=== PATIENT | female | born 1960 | race Caucasian/White ===

== ENCOUNTER 2017-10-06 08:38 | Inpatient (IN) ==
[2017-10-06] MEDS ORDERED: 0.9 % Sodium Chloride 1,000 ML ONE (09:05)
[2017-10-06] MEDS ORDERED: 0.9 % Sodium Chloride 1,000 ML IVC ONE ×7 (09:08→18:59)
--- NOTE | 2017-10-06 09:12 | Emergency Department Note ---
Disposition Clinical Impression: Sinus tachycardia, Dehydration, Weakness Lung cancer, primary, with metastasis from lung to other site Qualifiers: Laterality: unspecified laterality Qualified Code(s): C34.90 - Malignant neoplasm of unspecified part of unspecified bronchus or lung Urinary tract infection Qualifiers: Urinary tract infection type: acute cystitis Hematuria presence: without hematuria Qualified Code(s): N30.00 - Acute cystitis without hematuria Disposition: Admitted As Inpatient Condition: Fair Referrals: Rik Cisneros DO [Primary Care Provider] - Forms: ED Satisfaction Letter Time of Disposition: 11:44 General Adult HPI - General Chief complaint: ED Arrhythmia/Palpitations Stated complaint: TACHYCARDIA Time Seen by Provider: 10/06/17 08:56 Source: patient, family Limitations: no limitations Nursing Notes Reviewed: Yes Vital Signs Reviewed: Yes - History of Present Illness HPI Narrative: 57-year-old female history of lung cancer metastasis to the brain presents to the ED for dizziness and dehydration. Patients oncologist is Dr. Soliz, radiation oncologist Dr. Sands. Today she received her 5th radiation treatment of 10 afterwards felt week and reports episode of dizziness room spinning that lasted a minute, symptoms are resolved. He was also concerned because her heart rate was significantly elevated 150s. She denies known history of arrhythmia. She has not been eating as much over the past few days. She denies any fevers or chills. Denies any cough, chest pain, shortness of breath. Denies any nausea vomiting or abdominal pain. States she just feels weak and dry. She denies any sick contacts. Denies any fall. Denies any lightheadedness or syncope. Pain Scale: 0 - Related Data Home Medications Medication Instructions Recorded Confirmed predniSONE [Prednisone] 5 mg PO HS 07/25/17 10/06/17 predniSONE [Prednisone] 10 mg PO QAM 07/25/17 10/06/17 Calcium Carbonate/Vitamin D3 1 each PO BID 08/19/17 10/06/17 [Calcium 600 + Vit D Tablet] Previous Rx's Medication Instructions Recorded Furosemide [Lasix] 40 mg PO DAILY PRN #30 tablet 07/21/15 Levothyroxine [Synthroid] 100 mcg PO DAILY #90 tablet 03/21/17 Potassium Chloride [K-Tab ER] 40 meq PO BID #180 tablet.er 03/21/17 hydroCHLOROthiazide 25 mg PO DAILY #90 tablet 03/21/17 [Hydrochlorothiazide] Valacyclovir HCl [Valtrex] 1,000 mg PO DAILY #30 tab 07/25/17 Allergies Allergy/AdvReac Type Severity Reaction Status Date / Time ferrous sulfate Allergy Unknown Unknown Verified 10/06/17 08:56 Sulfa (Sulfonamide Allergy Unknown Unknown Verified 10/06/17 08:56 Antibiotics) All systems ED: reviewed and negative except as stated. Review of Systems: As Per HPI Constitutional: Reports: weakness. Denies: fever, chills ENT ED: Denies: congestion, dysphagia Cardiovascular: Denies: chest pain, dyspnea on exertion, syncope Respiratory: Denies: cough, dyspnea Gastrointestinal: Denies: abdominal pain, nausea, vomiting Genitourinary: Denies: urgency, dysuria Musculoskeletal: Denies: back pain, neck pain Integumentary: Denies: rash, abrasion Neurological: Reports: weakness. Denies: headache Psychiatric: Denies: anxiety, depression Endocrine: Reports: fatigue Past Medical History - Past Medical History Attestation: Yes The following information was validated with the patient. Source: patient Medical history: Reports: cancer, thyroid disease, other Psychiatric history: Reports: no psych history - Social History Smoking Status: Never smoker Smokeless Tobacco Status: No Alcohol use: Reports: none Drug use: Reports: none Physical Exam - General Limitations: no limitations General appearance: alert, in no apparent distress - Head Head exam: atraumatic, normocephalic, other (hair loss/bald) - Eye Eye exam: Present: normal appearance, PERRL, EOMI. Absent: scleral icterus - ENT ENT exam: normal exam, normal oropharynx, mucous membranes dry - Neck Neck exam: Present: normal inspection, full ROM, trachea midline. Absent: tenderness - Chest Chest inspection: Present: normal inspection, symmetric chest wall rise, other ( port to right anterior chest). Absent: tenderness - Respiratory Respiratory exam: Present: normal lung sounds bilaterally. Absent: respiratory distress, wheezes - Cardiovascular Cardiovascular exam: Present: normal rhythm, tachycardia, normal heart sounds - Abdominal Exam Abdominal exam: Present: soft, Non-Tender, normal bowel sounds. Absent: tenderness, distention, guarding, rebound, rigidity - Extremities Exam Extremities exam: Present: normal inspection, full ROM, normal capillary refill. Absent: tenderness, pedal edema, calf tenderness - Back Exam Back exam: Present: normal inspection, full ROM. Absent: tenderness - Neurological Exam Neurological exam: Present: alert, oriented X3, CN II-XII intact - Expanded Neurological Exam Patient oriented to: Present: person, place, time Speech: Present: fluid speech Cranial nerves: EOM function (II, III, IV, ): Normal, facial sensation (V): Normal, facial palsy (VII): Normal, spinal accessory function (XI): Normal, tongue deviation (XII): Normal Motor strength - LUE: 5/5 Motor strength - RUE: 5/5 Motor strength - LLE: 5/5 Motor strength - RLE: 5/5 Upper motor neuron exam: laina neglect: Absent bilaterally Sensory exam upper extremity: light touch: Normal Sensory exam lower extremity: light touch: Normal - Psychiatric Psychiatric exam: Present: normal affect, normal mood - Skin Skin exam: Present: warm, dry, intact, pallor. Absent: rash, diaphoresis Course Course Narrative: 57-year-old female rain metastasis presents for weakness. On exam she appears mildly uncomfortable and very dry. She is afebrile. Sinus tachycardia 157. She denies any other complaints at this time. Neurologic exam is normal without any focal neural deficits. She denies any current illness. EKG performed showed sinus tachycardia ischemic changes. Will get basic labs in fluid hydrated her for possible dehydration. Also get a chest x-ray and urinalysis. Patient has a history of hypothyroidism will check or TSH. Patients in agreement with this plan. Disposition pending reassessment - Reevaluation(s) Reevaluation #1: Heart rate is improving with IV fluids. She has a large leukocytosis 31. States she is been on chronic steroids over the past 4 years currently reduced the dose. Her WBC last week was 6.7. Chest x-ray does not reveal signs for infection, old opacity appears chronic likely lung mass. Awaiting urinalysis. Review of her labs indicate likely dehydration. Her lactate is 2.0. Her TSH is low 0.2 and appears persistently low. She continues to be sinus on monitor. She meets 2 of 4 SIRS criteria, blood cultures obtained. She is not hypotensive and at this time does not require aggressive fluid resuscitation of 30 mL/kg. She has received a total of 2L normal saline with improvement of symptoms, will place on empiric antibiotics Zosyn and Vancomycin. Time: 09:58 Reevaluation #2: Urinalysis appears consistent with infection. After some more desiccation she does report some dysuria. Concern for urinary tract infection. She would be admitted for IV antibiotics and fluids. - Consultations Consultation #1: Spoke with on-call hospitalist sury Bahena to admit for weakness, dehydration , SIRS. No further orders at this time. Recheck of her blood pressure 113/67. She did have one hypotensive reading but this was after urination. Vital Signs Temperature 98.0 F 10/06/17 08:48 Pulse Rate 157 10/06/17 08:48 Respiratory Rate 18 10/06/17 08:48 Blood Pressure 129/87 10/06/17 08:48 O2 Sat by Pulse Oximetry 98 10/06/17 08:48 Temperature 100.0 F H 10/06/17 11:42 Pulse Rate 134 10/06/17 11:42 Respiratory Rate 16 10/06/17 11:42 Blood Pressure 109/69 10/06/17 11:42 O2 Sat by Pulse Oximetry 98 10/06/17 11:42 Oxygen Delivery Oxygen Delivery Room Air Medical Decision Making - MDM Narrative Medical decision making narrative: Patient was discussed with my attending physician who agrees with ED management and final disposition. They independently evaluated the patient. Please refer to their attestation to this encounter for additional information. This note was generated by [employer] voice recognition software and as a result grammatical or spelling errors may occur using this program. - Medical Records Medical records reviewed: Yes I reviewed the patient's medical records. - Lab Data Lab results reviewed: Yes I reviewed the patient's lab results. Result diagrams: 10/06/17 09:07 10/06/17 09:07 Lab Results 10/06/17 10/06/17 10/06/17 Range/Units 09:07 09:07 09:07 WBC 31.0 H* (4.3-11.1) K/mcL RBC 4.69 (3.82-4.97) M/mcL Hgb 14.5 (11.5-15.4) g/dL Hct 43.3 (35.3-44.9) % MCV 92.3 (83.0-100.0) fL MCH 30.9 (28.0-33.3) pg MCHC 33.5 (31.6-35.5) g/dL RDW 18.4 H (11.5-14.5) % Plt Count 165 (140-400) K/mcL MPV 10.5 (9.4-12.4) fL Seg Neutrophils % 96.0 % Lymphocytes % 4.0 % Neutrophils # 29.8 H (1.6-8.9) K/mcL Lymphocytes # 1.2 (0.6-4.6) K/mcL Platelet Estimate Normal (Normal) Large Platelets Present A (Not Present) Sodium 132 L (136-145) mEq/L Potassium 3.4 L (3.5-4.5) mEq/L Chloride 93 L (98-109) mEq/L Carbon Dioxide 26 (19-29) mEq/L BUN 12 (7-20) mg/dL Creatinine 0.69 (0.57-1.11) mg/dL Est GFR ( Amer) > 60 (> 60) Est GFR (Non-Af Amer) > 60 (> 60) BUN/Creatinine Ratio 17 (6-26) Glucose 135 H (70-99) mg/dL Calculated Osmolality 276 L (280-300) Lactic Acid 2.0 (0.5-2.2) mmol/L Calcium 8.5 L (8.6-10.8) mg/dL Magnesium 1.5 L (1.6-2.6) mg/dL Troponin I (0-0.03) ng/mL TSH 0.232 L (0.350-4.840) mcIU/mL Urine Color (Yellow) Urine Clarity (Clear) Urine pH (5.0-8.0) pH Units Ur Specific [place] (1.010-1.025) Urine Protein (Neg-Trace) mg/dL Urine Glucose (UA) (Normal) mg/dL Urine Ketones (Negative) mg/dL Urine Blood (Negative) Urine Nitrite (Negative) Urine Bilirubin (Negative) Urine Urobilinogen (Normal) mg/dL Ur Leukocyte Esterase (Negative) Urine Microscopic RBC (0-3) per hpf Urine Microscopic WBC (0-3) per hpf Ur Squamous Epith Cells (None-Few) per lpf Urine Bacteria (None-Few) per hpf Hyaline Casts (None-Few) per lpf Ur Culture Indicated? (NO) 10/06/17 10/06/17 Range/Units 09:07 11:10 WBC (4.3-11.1) K/mcL RBC (3.82-4.97) M/mcL Hgb (11.5-15.4) g/dL Hct (35.3-44.9) % MCV (83.0-100.0) fL MCH (28.0-33.3) pg MCHC (31.6-35.5) g/dL RDW (11.5-14.5) % Plt Count (140-400) K/mcL MPV (9.4-12.4) fL Seg Neutrophils % % Lymphocytes % % Neutrophils # (1.6-8.9) K/mcL Lymphocytes # (0.6-4.6) K/mcL Platelet Estimate (Normal) Large Platelets (Not Present) Sodium (136-145) mEq/L Potassium (3.5-4.5) mEq/L Chloride (98-109) mEq/L Carbon Dioxide (19-29) mEq/L BUN (7-20) mg/dL Creatinine (0.57-1.11) mg/dL Est GFR ( Amer) (> 60) Est GFR (Non-Af Amer) (> 60) BUN/Creatinine Ratio (6-26) Glucose (70-99) mg/dL Calculated Osmolality (280-300) Lactic Acid (0.5-2.2) mmol/L Calcium (8.6-10.8) mg/dL Magnesium (1.6-2.6) mg/dL Troponin I 0.02 (0-0.03) ng/mL TSH (0.350-4.840) mcIU/mL Urine Color [place] A (Yellow) Urine Clarity Cloudy A (Clear) Urine pH 7.0 (5.0-8.0) pH Units Ur Specific [place] 1.016 (1.010-1.025) Urine Protein 100 H (Neg-Trace) mg/dL Urine Glucose (UA) Normal (Normal) mg/dL Urine Ketones Trace H (Negative) mg/dL Urine Blood Negative (Negative) Urine Nitrite Positive A (Negative) Urine Bilirubin Moderate H (Negative) Urine Urobilinogen Normal (Normal) mg/dL Ur Leukocyte Esterase Small H (Negative) Urine Microscopic RBC 0-3 (0-3) per hpf Urine Microscopic WBC 15-30 H (0-3) per hpf Ur Squamous Epith Cells Many H (None-Few) per lpf Urine Bacteria Many H (None-Few) per hpf Hyaline Casts None Seen (None-Few) per lpf Ur Culture Indicated? NO (NO) - Radiology Data Radiology results reviewed: Yes I reviewed the patient's radiology results. Chest X-Ray 10/06/17 09:08 IMPRESSION: No acute cardiopulmonary process. Retrocardiac opacity, consistent with known left lower lobe metastases, is unchanged. D/ / 10/06/2017 09:38:53 Mor Rojo MD / kedar Interpreting Provider: Mor Rojo MD - EKG Data EKG #1 EKG attestation: Yes I reviewed and interpreted this EKG. EKG results narrative: EKG performed 0850 sinus tachycardia 157 bpm short RI interval 115, there are some minimal ST depression is V3 MP4 possibly due to rate, no ST elevation, no T wave inversion. Other intervals are within normal limits. Compared to old EKG performed 11/12/2015 shows similar findings sinus tachycardia 1 12 bpm. Denies any chest pain. Attestation Statement - Attestation Attestation: I examined this patient and my medical decision-making was reviewed with the Resident Physician. I agree with the documented findings, disposition and treatment plan as described except to the extent set forth below. Patient to the ED from the cancer center with dehydration. She presented today for radiation treatments. Patient has metastatic lung cancer. She was tachycardic in the 150s so she was sent to the ED for evaluation. Exam shows her tachycardic. Dry cracked lips. Dry mucous membranes. Plan. The patient appears severely dehydrated. EKG sinus tach. IV fluid bolus. Will admit. Patient has a leukocytosis of 31,000. Unclear the source, but she has never been this high. Blood cultures pending. We will give her a dose of IV antibiotic prior to admission. Patient with UTI. Now febrile. Patient meets sepsis criteria. Tylenol ordered. She received 3 L bolus and vancomycin and Zosyn. She is admitted to the hospitalist. . 40 minutes of critical care exclusive of separately billable procedures.
[2017-10-06 09:18] LABS: Hemoglobin 14.5 g/dL (11.5-15.4)
[2017-10-06 09:20] LABS: Hematocrit 43.3 % (35.3-44.9); Mean Corpuscular HGB Conc 33.5 g/dL (31.6-35.5); Mean Corpuscular Hemoglobin 30.9 pg (28.0-33.3); Mean Corpuscular Volume 92.3 fL (83.0-100.0); Mean Platelet Volume 10.5 fL (9.4-12.4); Platelet Count 165 K/mcL (140-400); Red Blood Count 4.69 M/mcL (3.82-4.97); Red Cell Distribution Width 18.4 % (11.5-14.5)
[2017-10-06 09:29] LABS: BUN/Creatinine Ratio 17 (6-26); Blood Urea Nitrogen 12 mg/dL (7-20); Calcium 8.5 mg/dL (8.6-10.8); Carbon Dioxide 26 mEq/L (19-29); Chloride 93 mEq/L (98-109); Glucose 135 mg/dL (70-99); Osmolality,Calculated 276 (280-300); Potassium 3.4 mEq/L (3.5-4.5); Sodium 132 mEq/L (136-145); eGFR For African Americans > 60 (> 60); eGFR For Non-African Americans > 60 (> 60)
[2017-10-06 09:48] LABS: Large Platelets Present (Not Present); Lymphocytes # 1.2 K/mcL (0.6-4.6); Neutrophils # 29.8 K/mcL (1.6-8.9); Platelet Estimate Normal (Normal)
[2017-10-06 09:51] LABS: Thyroid Stimulating Hormone 0.232 mcIU/mL (0.350-4.840)
[2017-10-06 10:02] LABS: Magnesium 1.5 mg/dL (1.6-2.6)
[2017-10-06] MEDS ORDERED: Piperacillin/Tazobactam 3.375 GM in Water for inj. (sterile) 20 ML IVP ONE (10:46)
[2017-10-06] MEDS ORDERED: Vancomycin 1,000 MG in D5% in Water 250 ML IVPB ONE (11:15)
[2017-10-06 11:29] LABS: Bilirubin,Urine Moderate (Negative); Blood,Urine Negative (Negative); Clarity,Urine Cloudy (Clear); Color,Urine Orange (Yellow); Glucose,Urine (UA) Normal (Normal); Ketones,Urine Trace mg/dL (Negative); Leukocyte Esterase,Urine Small (Negative); Nitrite,Urine Positive (Negative); Protein,Urine 100 mg/dL (Neg-Trace); Specific Gravity,Urine 1.016 (1.010-1.025); Urobilinogen,Urine Normal (Normal)
[2017-10-06 11:32] LABS: Bacteria,Urine Many per hpf (None-Few); Hyaline Casts,Urine None Seen per lpf (None-Few); RBC,Urine 0-3 per hpf (0-3); Squamous Epithelial Cell,Urine Many per lpf (None-Few); WBC,Urine 15-30 per hpf (0-3)
[2017-10-06] MEDS ORDERED: Naloxone 0.4 MG/ML INJ IVP PRN ×2 (12:48→18:59)
[2017-10-06] MEDS ORDERED: Ondansetron 4 MG/2 ML VIAL IVP PRN ×2 (12:48→18:59)
[2017-10-06] MEDS ORDERED: Acetaminophen 325 MG TABLET PO PRN ×2 (12:48→18:59)
[2017-10-06] MEDS ORDERED: 0.9 % Sodium Chloride 1,000 ML IVC SCH ×3 (13:00→16:15)
--- NOTE | 2017-10-06 13:00 | Internal Med History&Physical ---
Date of Encounter: 10/06/17 Time of Encounter: 13:00 Assessment and Plan (1) Sepsis Current visit: Yes Status: Acute Patient presents tachycardic with a heart rate in the 150s white count is 31,000 -urinalysis is positive for UTI. She was given 3 L of fluid in the ER as well as blood cultures were obtained and urine culture sent. We will continue with IV fluids Continuous cardiac monitoring She was initiated empirically on vancomycin and Zosyn which we will continue- pending culture and sensitivity Monitor intake and output Qualifiers: Sepsis type: sepsis due to unspecified organism Qualified Code(s): A41.9 - Sepsis, unspecified organism (2) Urinary tract infection Current visit: Yes Status: Acute Patient presented with symptoms of tachycardia and fatigue the elevated white count and urinalysis revealed UTI. Urine culture and blood cultures have been sent. 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 She is being followed by Dr. Soliz oncology and Dr. Sands oncology radiologist. She is scheduled to have radiation treatment tomorrow. I did speak with radiation oncologist Dr. Sands who will see the patient-once stable administer radiation treatment Continue with prednisone Qualifiers: Laterality: unspecified laterality Qualified Code(s): C34.90 - Malignant neoplasm of unspecified part of unspecified bronchus or lung (4) DVT prophylaxis Current visit: Yes Status: Acute [facility] Internal Medicine - H&P: HPI Chief complaint: weakness Admitted From: Emergency Dept Plans for Post Hospital Care: Home History of present illness: Ms. 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 According to the patient since Friday she has been feeling very weak and nauseated. She has not been able to eat over the past few days. She denies any fevers chills abdominal pain urinary symptoms chest pain or shortness of breath. She is a patient of Dr. Soliz oncology as well as radiation oncologist Dr. Sands. Today she presented to receive her fifth radiation treatment. Dr. Sands became concerned because her heart rate was significantly elevated at 150s and the patient appeared to be symptomatic complaining of lightheadedness and dizziness. She was sent to the ER for evaluation. Upon presentation patient was tachycardic with a heart rate 150s as well as hypotensive. Her white count was elevated at 31 chest x-ray was negative lactate was 29 was 1.5 TSH was 0.232 urinalysis was positive for UTI. She was given 3 L of fluid blood cultures were obtained and she was initiated on vancomycin and Zosyn. She has been admitted for further workup and evaluation. Presently she denies any chest pain or shortness of breath she continues to be slightly tachycardic blood pressure stable at this time. I did review this case with Dr. Harris who agrees with plan. Past Med Surg Social Fam HX - Past Medical History Medical history: cancer, thyroid disease, other Psychiatric history: no psych history - Social History Smoking Status: Never smoker Smokeless Tobacco Status: No Alcohol use: none Drug use: none Internal Medicine - H&P: Meds Furosemide [Lasix] 40 mg PO DAILY PRN #30 tablet 07/21/15 [Rx] Levothyroxine [Synthroid] 100 mcg PO DAILY #90 tablet 03/21/17 [Rx] Potassium Chloride [K-Tab ER] 40 meq PO BID #180 tablet.er 03/21/17 [Rx] hydroCHLOROthiazide [Hydrochlorothiazide] 25 mg PO DAILY #90 tablet 03/21/17 [Rx ] Valacyclovir HCl [Valtrex] 1,000 mg PO DAILY #30 tab 07/25/17 [Rx] predniSONE [Prednisone] 5 mg PO HS 07/25/17 [History] predniSONE [Prednisone] 10 mg PO QAM 07/25/17 [History] Calcium Carbonate/Vitamin D3 [Calcium 600 + Vit D Tablet] 1 each PO BID [History] 3 Allergy/AdvReac Type Severity Reaction Status Date / Time ferrous sulfate Allergy Unknown Unknown Verified 10/06/17 08:56 Sulfa (Sulfonamide Allergy Unknown Unknown Verified 10/06/17 08:56 Antibiotics) All Systems PM: A 10-system review of systems was performed and is negative for pertinent findings except as documented above in the HPI. - Constitutional Constitutional: anorexia, fatigue, no chills, no fever(s), no night sweats - EENT Eyes: no change in vision, no discharge, no pain, no photophobia Nose, mouth and throat: no dysphagia, no nasal discharge, no neck pain, no sore throat - Cardiovascular Cardiovascular ROS IM: lightheadedness, no chest pain, no diaphoresis, no dyspnea, no palpitations, no syncope - Respiratory Respiratory: no cough, no dyspnea, no wheezing, no excessive phlegm production - Gastrointestinal Gastrointestinal: nausea, no abdominal pain, no diarrhea, no hematemesis, no hematochezia, no melena, no vomiting - Genitourinary Genitourinary: no change in urinary stream, no dysuria, no flank pain, no hematuria - Musculoskeletal Musculoskeletal ROS IM: no numbness, no tingling - Integumentary Integumentary IM: no rash, no unusual bruising - Neurological Neurological ROS: no confusion, no convulsions, no focal weakness, no numbness, no tingling, no tremor(s) - Hematologic/Lymphatic Hematologic/Lymphatic: no easy bruising - Constitutional Vitals: Temp Pulse Resp BP Pulse Ox 100.0 F H 134 16 109/69 98 10/06/17 11:42 10/06/17 11:42 10/06/17 11:42 10/06/17 11:42 10/06/17 11:42 General appearance: Present: A&O X 3, answers questions appropriately - Head Head exam: Present: atraumatic, normocephalic - Eye Eye exam: Present: PERRL, conjuntiva pink, sclera anicteric Pupils: Present: PERRL - Neck Neck exam general surgery: Present: supple, trachea midline. Absent: lymphadenopathy - Respiratory Respiratory exam: Present: CTAB. Absent: accessory muscle use, rales, rhonchi, wheezes - Cardiovascular Cardiovascular exam: Present: RRR, +S1, +S2. Absent: diastolic murmur, gallop, rubs, systolic murmur - GI/Abdominal GI/Abdominal exam: Present: normal bowel sounds, soft, no peritoneal signs. Absent: distended, tenderness - Extremities Exam Extremities exam: Present: warm, radial pulses palpable and symmetrical. Absent : calf tenderness, cyanotic, pedal edema - Neurological Exam Neurological exam: Present: CN II-XII intact, oriented X3, no focal deficits. Absent: pronater drift, facial droop, speech deficit - Skin Skin exam: Present: dry, intact Internal Med - H&P Results - Labs CBC & Chem 7: 10/06/17 09:07 10/06/17 09:07 - EKG Data EKG shows normal: sinus rhythm Rate: tachycardia - EKG Data Prior EKG available for review: yes EKG comments: 10/06/17 13:[address] depression in lateral leads - Diagnostic Studies Other Images Additional comments: Chest X-Ray 10/06/17 09:08 IMPRESSION: No acute cardiopulmonary process. Retrocardiac opacity, consistent with known left lower lobe metastases, is unchanged. D/ / 10/06/2017 09:38:53 Mor Rojo MD / kedar Interpreting Provider: Mor Rojo MD
[2017-10-06] MEDS ORDERED: Piperacillin/Tazobactam 3.375 GM/200 ML BAG IVPB SCH (16:00)
[2017-10-06] MEDS ORDERED: Hydrocortisone Sodium Succ 100 MG/2 ML VIAL IVP SCH (18:00)
--- NOTE | 2017-10-06 18:26 | Event Note ---
Date of Encounter: 10/06/17 Time of Encounter: 18:23 The patient has received 5 L of fluid since arriving to the hospital she continues to be tachycardic with a heart rate 132, systolic blood pressure 90s to low 100s. She is 96% on room air respiratory rate 16 temperature 98.8 we will transfer to 2 N closer monitoring. We will check free T3-T4 and well give 2 more boluses of 0.9 normal saline IV fluid, she may require pressors. Dr. Minaya is aware of patient's status and agrees with transfer. We will continue to monitor.
--- NOTE | 2017-10-06 20:20 | Event Note ---
Date of Encounter: 10/06/17 Time of Encounter: 20:00 Discussed with TAISHA and agree with assessment and plan. Continue treatment for septic shock with fluid resuscitation in addition to steroid burst. Continue IV antibiotics for acute cystitis.
[2017-10-06 20:27] LABS: Triiodothyronine (T3) Free 1.86 pg/mL (1.71-3.71)
[2017-10-06] MEDS: 0.9 % Sodium Chloride 1,000 ML IVC SCH (20:59)
[2017-10-06] MEDS ORDERED: predniSONE 5 MG TABLET PO SCH (21:00)
[2017-10-06] MEDS ORDERED: Vancomycin 1,000 MG in D5% in Water 250 ML IVPB SCH (23:00)
[2017-10-06] MEDS: Hydrocortisone Sodium Succ 100 MG/2 ML VIAL IVP SCH (23:53)
[2017-10-06] MEDS: Vancomycin 1,000 MG in D5% in Water 250 ML IVPB SCH (23:54)
[2017-10-06] MEDS: Piperacillin/Tazobactam 3.375 GM/200 ML BAG IVPB SCH (23:54)
[2017-10-07] MEDS ORDERED: *HR* Enoxaparin 40 MG/0.4 ML SYRINGE SQ SCH (06:00)
[2017-10-07] MEDS: *HR* Enoxaparin 40 MG/0.4 ML SYRINGE SQ SCH (06:12)
[2017-10-07] MEDS: Hydrocortisone Sodium Succ 100 MG/2 ML VIAL IVP SCH ×2 (06:12→11:19)
[2017-10-07] MEDS: 0.9 % Sodium Chloride 1,000 ML IVC SCH (07:42)
[2017-10-07] MEDS: Piperacillin/Tazobactam 3.375 GM/200 ML BAG IVPB SCH ×2 (07:43→16:21)
[2017-10-07] MEDS: valACYclovir 500 MG TABLET PO SCH (07:43)
[2017-10-07 08:10] LABS: Basophils % 0.2 %; Eosinophils % 0.1 %; Hematocrit 33.1 % (35.3-44.9); Hemoglobin 10.5 g/dL (11.5-15.4); Immature Granulocytes % 1.9 % (0-4); Lymphocytes % 1.5 %; Mean Corpuscular HGB Conc 31.7 g/dL (31.6-35.5); Mean Corpuscular Hemoglobin 29.9 pg (28.0-33.3); Mean Corpuscular Volume 94.3 fL (83.0-100.0); Mean Platelet Volume 11.3 fL (9.4-12.4); Monocytes # 0.7 K/mcL (0.0-1.3); Monocytes % 4.2 %; Neutrophils # 15.2 K/mcL (1.6-8.9); Red Blood Count 3.51 M/mcL (3.82-4.97); Red Cell Distribution Width 18.1 % (11.5-14.5); Segmented Neutrophils % 92.1 %
[2017-10-07 08:13] LABS: BUN/Creatinine Ratio 17 (6-26); Blood Urea Nitrogen 9 mg/dL (7-20); Carbon Dioxide 19 mEq/L (19-29); Chloride 108 mEq/L (98-109); Glucose 155 mg/dL (70-99); Magnesium 1.4 mg/dL (1.6-2.6); Osmolality,Calculated 286 (280-300); Potassium 2.6 mEq/L (3.5-4.5); Sodium 137 mEq/L (136-145); eGFR For African Americans > 60 (> 60); eGFR For Non-African Americans > 60 (> 60)
[2017-10-07 08:18] LABS: Lymphocytes # 0.3 K/mcL (0.6-4.6); Platelet Count 93 K/mcL (140-400)
[2017-10-07] MEDS ORDERED: Potassium Chloride Elixir 20 MEQ/15 ML UDC PO ONE (08:20)
[2017-10-07] MEDS ORDERED: Magnesium Sulfate 2 GM in D5% in Water 100 ML IVPB ONE (08:21)
[2017-10-07] MEDS ORDERED: Potassium Chloride 40 MEQ, Lidocaine 1% 2 ML in D5% in Water 500 ML IVPB ONE (08:24)
[2017-10-07] MEDS ORDERED: Calcium Gluconate 2,000 MG in 0.9 % Sodium Chloride 50 ML IVPB ONE (08:27)
--- NOTE | 2017-10-07 08:42 | Internal Med Progress Note ---
<Abelardo Lafleur - Last Filed: 10/07/17 18:34> Date of Encounter: 10/07/17 - Assessment and plan (1) Sepsis Current Visit: Yes Status: Acute Qualifiers: Sepsis type: sepsis due to unspecified organism Qualified Code(s): A41.9 - Sepsis, unspecified organism (2) Urinary tract infection Current Visit: Yes Status: Suspected Qualifiers: Urinary tract infection type: acute cystitis Hematuria presence: without hematuria Qualified Code(s): N30.00 - Acute cystitis without hematuria (3) Non-small cell carcinoma of lung Current Visit: No Status: Chronic Qualifiers: Laterality: left Qualified Code(s): C34.92 - Malignant neoplasm of unspecified part of left bronchus or lung (4) Bone metastases Current Visit: No Status: Chronic (5) Metastatic cancer to brain Current Visit: No Status: Chronic (6) Hypokalemia Current Visit: No Status: Acute Assessment and plan: Replete today (7) Hypomagnesemia Current Visit: Yes Status: Acute Assessment and plan: Replete today (8) Hypocalcemia Current Visit: Yes Status: Acute Assessment and plan: Replete today (9) Hypophosphatemia Current Visit: Yes Status: Acute Assessment and plan: Replete today - Constitutional Vitals: Temp Pulse Resp BP Pulse Ox 98.2 F 95 18 140/85 97 10/07/17 17:01 10/07/17 17:01 10/07/17 17:01 10/07/17 17:01 10/07/17 17:01 Internal Medicine: Result - Labs CBC & Chem 7: 10/07/17 06:49 10/07/17 06:49 Labs: Short CBC 10/07/17 Range/Units 06:49 WBC 16.5 H (4.3-11.1) K/mcL Hgb 10.5 L D (11.5-15.4) g/dL Hct 33.1 L (35.3-44.9) % Plt Count 93 L (140-400) K/mcL Neutrophils # 15.2 H (1.6-8.9) K/mcL BMP 10/07/17 06:49 Sodium 137 Potassium 2.6 L Chloride 108 D Carbon Dioxide 19 BUN 9 Creatinine 0.54 L Glucose 155 H Calcium 6.0 L* D Consult Discharge Plan - Plan Referrals: Colopy,Rik R, DO [Primary Care Provider] - (This doctor will not make appointments for us he wants the patient to call and make the appointments) - Attending Attestation I examined this patient and my medical decision-making was reviewed with the Resident Physician on 10/07/17. I agree with the documented findings, disposition and treatment plan as described except to the extent set forth below. Ms Liao is currently admitted for acute sepsis. She remains moderate to high risk due to potential for worsening clinical status. Ms Liao is beginning to feel somewhat better. Her heartrate and blood pressure has gotten better. She is going to radiation today. No fever or chills. WBC is starting to improve. No overt source noted at this time. Exam Alert. Comfortable Mucus membranes dry Heart reg and not tachy Lungs clear now Abd soft I/P 1. Sepsis 2. Metastatic lung cancer Further diagnoses and plan as above. <Aliza Lerner - Last Filed: 10/07/17 21:47> Date of Encounter: 10/07/17 Time of Encounter: 08:25 - Assessment and plan (1) Sepsis Current Visit: Yes Status: Acute Assessment and plan: Sepsis present on admission--WBC count 31, tachycardic HR 150's, UTI Responded well to IVF boluses, BP stable White count improved since admission, 16.5 today Tmax 100.2 F, currently afebrile Initial lactic acid 2.0, today 1.6 Infectious source remains unclear at this time Plan: Blood and urine cultures pending Continue empiric zosyn and vancomycin (day 2) Qualifiers: Sepsis type: sepsis due to unspecified organism Qualified Code(s): A41.9 - Sepsis, unspecified organism (2) Urinary tract infection Current Visit: Yes Status: Suspected Assessment and plan: UTI present on admission, sent for cultures No c/o urinary symptoms per patient Plan: Continue empiric abx as above, pending return of urine culture Qualifiers: Urinary tract infection type: acute cystitis Hematuria presence: without hematuria Qualified Code(s): N30.00 - Acute cystitis without hematuria (3) Non-small cell carcinoma of lung Current Visit: Yes Status: Chronic Assessment and plan: Stage IV non-small cell carcinoma Patient of Dr. Soliz (oncology) and Dr. Sands (radiation oncology) Metastases to brain, receives radiation treatments Plan: Brain radiation today, will be 5th radiation treatment Start home dose oral prednisone; steroid burst received Qualifiers: Laterality: left Qualified Code(s): C34.92 - Malignant neoplasm of unspecified part of left bronchus or lung (4) Metastatic cancer to brain Current Visit: Yes Status: Chronic Assessment and plan: As above for non-small cell lung carcinoma (5) Electrolyte abnormality Current Visit: Yes Status: Acute Assessment and plan: hypokalemia (2.6), hypocalcemia (serum 6, ionized 0.85), hypomagnesemia (1.4), and hypophosphatemia (1.9) Plan: Replace as needed Recheck levels in AM (6) DVT prophylaxis Current Visit: No Status: Acute Assessment and plan: Lovenox SubQ - Subjective Interval history: Patient seen and examined this morning at bedside, she is sitting up in bed with family present in room. Patient denies vomiting, chest pain, abdominal pain , dysuria. She admits to occasional nausea, some POWERS since coming to hospital, diarrhea--3 episodes yesterday, 1 episode today. Patient has no complaints at this time, requests Ensure/Boost. - Constitutional Vitals: Temp Pulse Resp BP Pulse Ox 98.5 F 92 18 124/77 94 10/07/17 07:25 10/07/17 07:25 10/07/17 07:25 10/07/17 07:25 10/07/17 07:25 General appearance: Present: A&O X 3, pleasant, no acute distress, answers questions appropriately - Head Head exam: Present: atraumatic, normocephalic - Eye Eye exam: Present: EOMI, scleral icterus. Absent: conjunctival injection - Neck Neck exam general surgery: Present: full ROM, supple - Respiratory Respiratory exam: Present: decreased breath sounds (RLL), CTAB. Absent: accessory muscle use - Cardiovascular Cardiovascular exam: Present: RRR, +S1, +S2. Absent: diastolic murmur, systolic murmur - GI/Abdominal GI/Abdominal exam: Present: soft. Absent: distended, tenderness - Extremities Exam Additional comments: Healing LLE lesion - Neurological Exam Neurological exam: Present: alert, oriented X3, no focal deficits Internal Medicine: Result - Labs CBC & Chem 7: 10/07/17 06:49 10/07/17 06:49 Labs: Short CBC 10/07/17 Range/Units 06:49 WBC 16.5 H (4.3-11.1) K/mcL Hgb 10.5 L D (11.5-15.4) g/dL Hct 33.1 L (35.3-44.9) % Plt Count 93 L (140-400) K/mcL Neutrophils # 15.2 H (1.6-8.9) K/mcL BMP 10/07/17 06:49 Sodium 137 Potassium 2.6 L Chloride 108 D Carbon Dioxide 19 BUN 9 Creatinine 0.54 L Glucose 155 H Calcium 6.0 L* D
[2017-10-07] MEDS ORDERED: predniSONE 10 MG TABLET PO SCH (09:00)
[2017-10-07] MEDS ORDERED: valACYclovir 500 MG TABLET PO SCH (09:00)
[2017-10-07] MEDS ORDERED: Calcium Gluconate 2,000 MG in 0.9 % Sodium Chloride 100 ML IVPB ONE (09:00)
[2017-10-07 09:24] LABS: VBG Ionized Calcium 0.85 mmol/L (1.15-1.35); VBG PH 7.42 pH Units (7.32-7.42)
[2017-10-07] MEDS: Vancomycin 1,000 MG in D5% in Water 250 ML IVPB SCH (10:51)
--- NOTE | 2017-10-07 14:10 | Electrocardiograph Report ---
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
[2017-10-07] MEDS: predniSONE 5 MG TABLET PO SCH (21:29)
[2017-10-08] MEDS: Vancomycin 1,000 MG in D5% in Water 250 ML IVPB SCH ×2 (00:15→11:37)
[2017-10-08] MEDS: Piperacillin/Tazobactam 3.375 GM/200 ML BAG IVPB SCH ×3 (00:15→15:43)
[2017-10-08 03:58] LABS: Basophils % 0.1 %
[2017-10-08 04:00] LABS: Eosinophils # 0.1 K/mcL (0.0-0.6); Eosinophils % 0.4 %; Hematocrit 31.3 % (35.3-44.9); Immature Granulocytes % 1.5 % (0-4); Immature Platelets 4.6 % (1.1-6.1); Lymphocytes # 0.2 K/mcL (0.6-4.6); Lymphocytes % 1.6 %; Mean Corpuscular HGB Conc 31.9 g/dL (31.6-35.5); Mean Corpuscular Hemoglobin 30.2 pg (28.0-33.3); Mean Corpuscular Volume 94.6 fL (83.0-100.0); Mean Platelet Volume 10.7 fL (9.4-12.4); Monocytes # 0.8 K/mcL (0.0-1.3); Monocytes % 5.8 %; Neutrophils # 11.8 K/mcL (1.6-8.9); Platelet Count 108 K/mcL (140-400); Red Blood Count 3.31 M/mcL (3.82-4.97); Red Cell Distribution Width 17.7 % (11.5-14.5); Segmented Neutrophils % 90.6 %
[2017-10-08 04:11] LABS: BUN/Creatinine Ratio 13 (6-26); Blood Urea Nitrogen 7 mg/dL (7-20); Carbon Dioxide 19 mEq/L (19-29); Chloride 111 mEq/L (98-109); Glucose 158 mg/dL (70-99); Magnesium 2.2 mg/dL (1.6-2.6); Osmolality,Calculated 291 (280-300); Sodium 140 mEq/L (136-145); eGFR For African Americans > 60 (> 60); eGFR For Non-African Americans > 60 (> 60)
[2017-10-08 04:13] LABS: Calcium 6.6 mg/dL (8.6-10.8)
[2017-10-08 04:16] LABS: Potassium 2.3 mEq/L (3.5-4.5)
[2017-10-08] MEDS ORDERED: 0.9 % Sodium Chloride w KCl 40 MEQ/1,000 ML MLS IVC SCH (04:30)
[2017-10-08] MEDS: *HR* Enoxaparin 40 MG/0.4 ML SYRINGE SQ SCH (05:56)
[2017-10-08] MEDS: valACYclovir 500 MG TABLET PO SCH (08:31)
[2017-10-08] MEDS: predniSONE 10 MG TABLET PO SCH (08:33)
[2017-10-08] MEDS ORDERED: D5% in Water 250 ML ONE (11:23)
[2017-10-08] MEDS ORDERED: Potassium Chloride Elixir 20 MEQ/15 ML UDC PO ONE (11:36)
[2017-10-08] MEDS ORDERED: Potassium Chloride 40 MEQ, Lidocaine 1% 2 ML in D5% in Water 500 ML IVPB ONE (11:37)
[2017-10-08 13:53] LABS: BUN/Creatinine Ratio 11 (6-26); Blood Urea Nitrogen 6 mg/dL (7-20); Calcium 6.9 mg/dL (8.6-10.8); Carbon Dioxide 20 mEq/L (19-29); Chloride 110 mEq/L (98-109); Glucose 247 mg/dL (70-99); Osmolality,Calculated 290 (280-300); Potassium 3.8 mEq/L (3.5-4.5); Sodium 137 mEq/L (136-145); eGFR For African Americans > 60 (> 60); eGFR For Non-African Americans > 60 (> 60)
[2017-10-08] MEDS ORDERED: Aminoglycoside Consult 1 EACH MC ONE (14:26)
[2017-10-08] MEDS ORDERED: Potassium Phosphate 44 MEQ in 0.9 % Sodium Chloride 250 ML IVPB PRN (14:53)
--- NOTE | 2017-10-08 15:33 | Oncology Inp Consult Note ---
Date of Encounter: 10/09/17 Time of Encounter: 15:33 Assessment and Plan (1) Shortness of breath Status: Acute Assessment and plan: She has progressive lung cancer in the lungs. The L lung shows worsening post- obstructive phenomenon with increasing atelectasis int he LLL and L lingula. However, I dont suspect that these are the primary etiologies of her sudden onset dyspnea. She required significant amount of fluid for resuscitation. She has a new R pleural effusion. Given that the R lung is doing most of her respiratory sustenance, I suspect that the effusion there is contributing to her orthopne and POWERS. I have taken the liberty of arranging thoracentesis on the R side to see if her symptoms improve. (2) Lung cancer, primary, with metastasis from lung to other site Status: Chronic Assessment and plan: She has progressive disease in the brain, hence the whole brain radiation, but now she has e/o thoracic and hepatic progression also. the taxol is not working at this time. The patient wants to continue to fight. Fortunately, she feels well overall. Options are limited but I would defer her ultimate oncologic treatment course to her primary oncologist, Dr. Soliz. Qualifiers: Qualified Code(s): C34.90 - Malignant neoplasm of unspecified part of unspecified bronchus or lung (3) Metastatic cancer to brain Status: Chronic Assessment and plan: I hope the thoracentesis will stabilize her respiratory status so that we can continue whole brain radiation. (4) Non-small cell carcinoma of lung Status: Chronic Assessment and plan: as above. Qualifiers: Qualified Code(s): C34.92 - Malignant neoplasm of unspecified part of left bronchus or lung (5) Urinary tract infection Status: Suspected Assessment and plan: Urine Cx was ultimately negative which is surprising given the constellation of symptoms. Between the fluid rescucitation and the stress dose steroids, her vitals have stabilized nicely. Given that she has already had 4 days of Abx, it may not be necessary to continue them at this time. Qualifiers: Qualified Code(s): N30.00 - Acute cystitis without hematuria - Data of Consult Requesting Physician: Abelardo Lafleur DO Primary Care Provider: Rik Cisneros - Consult Narrative Reason for consult: NSCLC, dyspnea History of present illness: Ms. 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 She underwent SBRT at that time and was afterwards started on afitinib. She had progression in July and was switched to taxol in 08/2017. She then had another MRI brain done at the end of august which showed worsening brain disease with leptomeningeal spread. The MRI was done to facilitate evaluation for clinical trial. Based on the MRI findings, the patient was then referred for whole brain radiation which was started last week. Then 2 days ago, she came for radiation, and she felt very crummy, disoriented, and weak. Dr. Sands referred her to the ER. She appeared to be septic and was still tachycardic despite 3 L of fluid. She was admitted for presumed urosepsis and was started on abx. She was given stress dose steroids. Her vitals subsequently improved. then yesterday, she was feeling much improved. Then on Friday, she started to have some breathing issues. Going to the restroom and back caused her significant exertion. Sitting up, she could talk withtout issue, however, when she lay down, she could hardly breathe. This morning was not good. She had CT/ PE which was negative for PE, however, showed significant progression of disease in the lung with increased consolidation of the L lung and worsening hepatic metastases. We are consulted regarding the NSCLC and her dyspnea. Past Med Surg Social Fam HX - Past Medical History Medical history: cancer, thyroid disease, other Psychiatric history: no psych history - Social History Smoking Status: Never smoker Smokeless Tobacco Status: No Alcohol use: none Drug use: none Medications and Allergies Levothyroxine [Synthroid] 100 mcg PO DAILY #90 tablet 03/21/17 [Rx] Potassium Chloride [K-Tab ER] 40 meq PO BID #180 tablet.er 03/21/17 [Rx] Valacyclovir HCl [Valtrex] 1,000 mg PO DAILY #30 tab 07/25/17 [Rx] predniSONE [Prednisone] 5 mg PO HS 07/25/17 [History] predniSONE [Prednisone] 10 mg PO QAM 07/25/17 [History] Calcium Carbonate/Vitamin D3 [Calcium 600 + Vit D Tablet] 1 each PO BID [History] Cefdinir [Omnicef] 300 mg PO BID #6 capsule 10/09/17 [Rx] Furosemide [Lasix] 20 mg PO DAILY #30 tablet 10/09/17 [Rx] Levofloxacin [Levaquin] 500 mg PO DAILY #3 tablet 10/09/17 [Rx] Phos-NaK [Neutra-Phos] 2 each PO DAILY PRN #30 powd.pack 10/09/17 [Rx] 3 Allergy/AdvReac Type Severity Reaction Status Date / Time ferrous sulfate Allergy Unknown Unknown Verified 10/06/17 08:56 Sulfa (Sulfonamide Allergy Unknown Unknown Verified 10/06/17 08:56 Antibiotics) Constitutional: Present: anorexia. Absent: night sweats Nose, mouth and throat: Absent: disequilibrium, mouth lesions Cardiovascular: Absent: chest pain, edema Respiratory: Present: as per HPI, wheezing. Absent: cough Gastrointestinal: Absent: abdominal pain Oncology - Exam - Constitutional Vitals: Temp Pulse Resp BP Pulse Ox 97.7 F 111 16 157/98 100 10/08/17 15:10 10/08/17 15:10 10/08/17 15:10 10/08/17 15:10 10/08/17 15:10 Oncology - Results Labs: Short CBC 10/08/17 Range/Units 03:50 WBC 13.0 H (4.3-11.1) K/mcL Hgb 10.0 L (11.5-15.4) g/dL Hct 31.3 L (35.3-44.9) % Plt Count 108 L (140-400) K/mcL Neutrophils # 11.8 H (1.6-8.9) K/mcL BMP 10/08/17 10/08/17 10/08/17 03:50 13:26 13:26 Sodium 140 137 Potassium 2.3 L* 3.9 D 3.8 Chloride 111 H 110 H Carbon Dioxide 19 20 BUN 7 6 L Creatinine 0.52 L 0.57 Glucose 158 H 247 H Calcium 6.6 L 6.9 L Consult Discharge Plan - Plan Referrals: Rik Cisneros DO [Primary Care Provider] - (This doctor will not make appointments for us he wants the patient to call and make the appointments) Prescriptions: Cefdinir [Omnicef] 300 mg PO BID #6 capsule Furosemide [Lasix] 20 mg PO DAILY #30 tablet Levofloxacin [Levaquin] 500 mg PO DAILY #3 tablet Phos-NaK [Neutra-Phos] 2 each PO DAILY PRN #30 powd.pack PRN Reason: Hypophosphatemia
[2017-10-08] MEDS: Magic Mouthwash 10 ML UD Cup PO SCH (15:43)
[2017-10-08 16:09] LABS: Potassium 3.9 mEq/L (3.5-4.5); Sodium 138 mEq/L (136-145)
[2017-10-08 16:12] LABS: Phosphorous < 0.7 mg/dL (2.3-4.7)
--- NOTE | 2017-10-08 16:31 | Internal Med Progress Note ---
<Abel Garg - Last Filed: 10/08/17 16:42> Date of Encounter: 10/08/17 Time of Encounter: 11:00 - Assessment and plan (1) Shortness of breath Current Visit: Yes Status: Acute Assessment and plan: 10/08 morning: patient appeared to be in acute distress due to shortness of breath at rest suspicion for PE was high, so CTA was ordered. CTA showed no PE, but did show progression in dominant masses in left lower lobe and hilum, progression and size of pulmonary nodules bilaterally, small bilateral pleural effusions, progressive hepatic mets Shortness of breath is likely secondary to progression of cancer. Plan: consult to heme/onc- appreciate recs after seen by heme/onc, will discuss goals of care, consider palliative care consult. (2) Sepsis Current Visit: Yes Status: Resolved Assessment and plan: resolved. etiology unclear at this time. UA: no indication for culture blood cultures x2 no growth to date Plan: d/c vanc today. zosyn day 3. wait for final culture results electrolyte protocol initiated. Qualifiers: Sepsis type: sepsis due to unspecified organism Qualified Code(s): A41.9 - Sepsis, unspecified organism (3) Non-small cell carcinoma of lung Current Visit: Yes Status: Chronic Assessment and plan: Stage IV non-small cell carcinoma Patient of Dr. Soliz (oncology) and Dr. Sands (radiation oncology) Metastases to brain, receives radiation treatments Qualifiers: Laterality: left Qualified Code(s): C34.92 - Malignant neoplasm of unspecified part of left bronchus or lung (4) Bone metastases Current Visit: No Status: Chronic (5) Metastatic cancer to brain Current Visit: Yes Status: Chronic Assessment and plan: currently undergoing radiation management per rad/onc (6) Hypokalemia Current Visit: No Status: Acute Assessment and plan: electrolyte protocol (7) Hypomagnesemia Current Visit: Yes Status: Acute Assessment and plan: electrolyte protocol (8) Hypocalcemia Current Visit: Yes Status: Acute Assessment and plan: electrolyte protocol (9) DVT prophylaxis Current Visit: No Status: Acute Assessment and plan: Lovenox SQ - Subjective Interval history: 57F evaluated at bedside. patient denies nausea, vomiting, diarrhea, fever, chills, chest pain. she does admit to new increased shortness of breath at rest. she denies any further problems today. - Constitutional Vitals: Temp Pulse Resp BP Pulse Ox 97.7 F 111 16 157/98 100 10/08/17 15:10 10/08/17 15:10 10/08/17 15:10 10/08/17 15:10 10/08/17 15:10 General appearance: Present: mild distress, A&O X 3, pleasant, answers questions appropriately - Head Head exam: Present: atraumatic, normocephalic - Neck Neck exam general surgery: Present: supple, trachea midline - Respiratory Respiratory exam: Present: CTAB - Cardiovascular Cardiovascular exam: Present: tachycardia - GI/Abdominal GI/Abdominal exam: Present: normal bowel sounds, soft. Absent: distended, tenderness - Extremities Exam Extremities exam: Absent: cyanotic, pedal edema - Neurological Exam Neurological exam: Present: alert, oriented X3, no focal deficits - Skin Skin exam: Present: intact Internal Medicine: Result - Labs CBC & Chem 7: 10/08/17 03:50 10/08/17 15:48 Labs: Short CBC 10/08/17 Range/Units 03:50 WBC 13.0 H (4.3-11.1) K/mcL Hgb 10.0 L (11.5-15.4) g/dL Hct 31.3 L (35.3-44.9) % Plt Count 108 L (140-400) K/mcL Neutrophils # 11.8 H (1.6-8.9) K/mcL BMP 10/08/17 10/08/17 10/08/17 03:50 13:26 13:26 Sodium 140 137 Potassium 2.3 L* 3.9 D 3.8 Chloride 111 H 110 H Carbon Dioxide 19 20 BUN 7 6 L Creatinine 0.52 L 0.57 Glucose 158 H 247 H Calcium 6.6 L 6.9 L 10/08/17 15:48 Sodium 138 Potassium 3.9 Chloride Carbon Dioxide BUN Creatinine Glucose Calcium - Impressions Impressions Chest CTA 10/08/17 11:33 IMPRESSION: No pulmonary embolus. Progression in dominant masses in the left lower lobe and hilum. Progression and size of subcentimeter pulmonary nodules bilaterally. Small bilateral pleural effusions, new on the right and increased on the left in the interval. Progressive hepatic metastases. Stable sclerotic lesion of T11. D/ / Hamlet Yadav MD / Hamlet Yadav MD Interpreting Provider: Hamlet Yadav MD Consult Discharge Plan - Plan Referrals: Rik Cisneros DO [Primary Care Provider] - (This doctor will not make appointments for us he wants the patient to call and make the appointments) <Abelardo Lafleur Sonia - Last Filed: 10/08/17 18:18> Date of Encounter: 10/08/17 - Assessment and plan (1) Shortness of breath Current Visit: Yes Status: Acute (2) Sepsis Current Visit: Yes Status: Resolved Qualifiers: Sepsis type: sepsis due to unspecified organism Qualified Code(s): A41.9 - Sepsis, unspecified organism (3) Urinary tract infection Current Visit: Yes Status: Suspected Qualifiers: Urinary tract infection type: acute cystitis Hematuria presence: without hematuria Qualified Code(s): N30.00 - Acute cystitis without hematuria (4) Non-small cell carcinoma of lung Current Visit: Yes Status: Chronic Qualifiers: Laterality: left Qualified Code(s): C34.92 - Malignant neoplasm of unspecified part of left bronchus or lung (5) Bone metastases Current Visit: No Status: Chronic (6) Metastatic cancer to brain Current Visit: Yes Status: Chronic (7) Hypokalemia Current Visit: No Status: Acute (8) Hypomagnesemia Current Visit: Yes Status: Acute (9) Hypocalcemia Current Visit: Yes Status: Acute (10) Hypophosphatemia Current Visit: Yes Status: Acute - Constitutional Vitals: Temp Pulse Resp BP Pulse Ox 97.7 F 111 16 157/98 100 10/08/17 15:10 10/08/17 15:10 10/08/17 15:10 10/08/17 15:10 10/08/17 15:10 Internal Medicine: Result - Labs CBC & Chem 7: 10/08/17 03:50 10/08/17 15:48 Labs: Short CBC 10/08/17 Range/Units 03:50 WBC 13.0 H (4.3-11.1) K/mcL Hgb 10.0 L (11.5-15.4) g/dL Hct 31.3 L (35.3-44.9) % Plt Count 108 L (140-400) K/mcL Neutrophils # 11.8 H (1.6-8.9) K/mcL BMP 10/08/17 10/08/17 10/08/17 03:50 13:26 13:26 Sodium 140 137 Potassium 2.3 L* 3.9 D 3.8 Chloride 111 H 110 H Carbon Dioxide 19 20 BUN 7 6 L Creatinine 0.52 L 0.57 Glucose 158 H 247 H Calcium 6.6 L 6.9 L 10/08/17 15:48 Sodium 138 Potassium 3.9 Chloride Carbon Dioxide BUN Creatinine Glucose Calcium - Impressions Impressions Chest CTA 10/08/17 11:33 IMPRESSION: No pulmonary embolus. Progression in dominant masses in the left lower lobe and hilum. Progression and size of subcentimeter pulmonary nodules bilaterally. Small bilateral pleural effusions, new on the right and increased on the left in the interval. Progressive hepatic metastases. Stable sclerotic lesion of T11. D/ / Hamlet Yadav MD / Hamlet Yadav MD Interpreting Provider: Hamlet Yadav MD - Attending Attestation I examined this patient and my medical decision-making was reviewed with the Resident Physician on 10/08/17. I agree with the documented findings, disposition and treatment plan as described except to the extent set forth below. Ms Liao is currently admitted for sepsis - unknown source at this point. She remains moderate to high risk due to potential for worsening clinical status. Ms Liao is having more dyspnea today. It is worse with movement. No CP. No fever or chills. Cultures thus far are negative. Stools improving. Exam Alert. Mod resp distress Mucus membranes dry Heart tachy and regular Lungs diminished. No wheeze Abd soft I/P 1. Dyspnea - CTA ordered. Tumor is larger. Will ask heme onc for opinion. 2. Sepsis 3. Metastatic lung cancer
[2017-10-08] MEDS ORDERED: Potassium Chloride Elixir 20 MEQ/15 ML UDC PO SCH (17:00)
[2017-10-08] MEDS: predniSONE 5 MG TABLET PO SCH (22:06)
[2017-10-08 22:27] LABS: VBG Ionized Calcium 1.05 mmol/L (1.15-1.35); VBG PH 7.39 pH Units (7.32-7.42)
[2017-10-09] MEDS: Piperacillin/Tazobactam 3.375 GM/200 ML BAG IVPB SCH ×2 (00:11→09:21)
[2017-10-09 05:53] LABS: BUN/Creatinine Ratio 11 (6-26); Blood Urea Nitrogen 6 mg/dL (7-20); Calcium 7.3 mg/dL (8.6-10.8); Carbon Dioxide 23 mEq/L (19-29); Chloride 111 mEq/L (98-109); Glucose 129 mg/dL (70-99); Osmolality,Calculated 291 (280-300); Potassium 4.3 mEq/L (3.5-4.5); Sodium 141 mEq/L (136-145); eGFR For African Americans > 60 (> 60); eGFR For Non-African Americans > 60 (> 60)
[2017-10-09 06:06] LABS: Hemoglobin 9.9 g/dL (11.5-15.4); Lymphocytes % 3.6 %; Mean Corpuscular HGB Conc 30.9 g/dL (31.6-35.5); Mean Corpuscular Hemoglobin 29.7 pg (28.0-33.3); Mean Corpuscular Volume 96.1 fL (83.0-100.0); Mean Platelet Volume 10.9 fL (9.4-12.4); Platelet Count 111 K/mcL (140-400); Red Blood Count 3.33 M/mcL (3.82-4.97); Red Cell Distribution Width 17.7 % (11.5-14.5); Segmented Neutrophils % 85.9 %
[2017-10-09 06:07] LABS: Basophils % 0.1 %; Eosinophils # 0.1 K/mcL (0.0-0.6); Eosinophils % 1.4 %; Lymphocytes # 0.3 K/mcL (0.6-4.6); Monocytes # 0.7 K/mcL (0.0-1.3); Neutrophils # 7.9 K/mcL (1.6-8.9)
[2017-10-09] MEDS: Magic Mouthwash 10 ML UD Cup PO SCH ×2 (07:07→11:32)
[2017-10-09] MEDS: *HR* Enoxaparin 40 MG/0.4 ML SYRINGE SQ SCH (07:07)
[2017-10-09] MEDS: valACYclovir 500 MG TABLET PO SCH (09:21)
[2017-10-09] MEDS: predniSONE 10 MG TABLET PO SCH (09:21)
--- NOTE | 2017-10-09 10:50 | IR Procedure Note ---
Date of procedure: 10/09/17 Consent Obtained: Verbal consent, Written consent Timeout: Correct patient and procedure verified, Correct site verified, Time out performed, Skin prep completed Local anesthetic: Lidocaine 1% Indications: Pleural effusion Procedure Performed: Right thoracentesis Site/Technique: Ultrasound right thoracentesis Results/Findings: Right pleural effusion Estimated blood loss (cc): 1 Complications: None; Tolerated procedure well Post Procedure Treatment Plan: CXR pending
--- NOTE | 2017-10-09 11:06 | Discharge Summary ---
<Abelardo Lafleur - Last Filed: 10/09/17 13:35> Date of Encounter: 10/09/17 - Discharge Diagnosis (1) Sepsis Priority: Primary Status: Resolved Qualifiers: Sepsis type: sepsis due to unspecified organism Qualified Code(s): A41.9 - Sepsis, unspecified organism (2) Urinary tract infection Priority: Primary Status: Suspected Qualifiers: Urinary tract infection type: acute cystitis Hematuria presence: without hematuria Qualified Code(s): N30.00 - Acute cystitis without hematuria (3) Non-small cell carcinoma of lung Priority: Secondary Status: Chronic Qualifiers: Laterality: left Qualified Code(s): C34.92 - Malignant neoplasm of unspecified part of left bronchus or lung (4) Bone metastases Priority: Secondary Status: Chronic (5) Metastatic cancer to brain Priority: Secondary Status: Chronic (6) Hypokalemia Priority: Secondary Status: Resolved (7) Hypomagnesemia Priority: Secondary Status: Resolved (8) Hypocalcemia Priority: Secondary Status: Resolved (9) Hypophosphatemia Priority: Secondary Status: Resolved (10) Shortness of breath Priority: Secondary Status: Resolved (11) Pleural effusion Priority: Secondary Status: Chronic - Discharge Medications Prescriptions: Cefdinir [Omnicef] 300 mg PO BID #6 capsule Furosemide [Lasix] 20 mg PO DAILY #30 tablet Levofloxacin [Levaquin] 500 mg PO DAILY #3 tablet Phos-NaK [Neutra-Phos] 2 each PO DAILY PRN #30 powd.pack PRN Reason: Hypophosphatemia Home Medications: Levothyroxine [Synthroid] 100 mcg PO DAILY #90 tablet 03/21/17 [Rx] Potassium Chloride [K-Tab ER] 40 meq PO BID #180 tablet.er 03/21/17 [Rx] Valacyclovir HCl [Valtrex] 1,000 mg PO DAILY #30 tab 07/25/17 [Rx] predniSONE [Prednisone] 5 mg PO HS 07/25/17 [History] predniSONE [Prednisone] 10 mg PO QAM 07/25/17 [History] Calcium Carbonate/Vitamin D3 [Calcium 600 + Vit D Tablet] 1 each PO BID [History] Cefdinir [Omnicef] 300 mg PO BID #6 capsule 10/09/17 [Rx] Furosemide [Lasix] 20 mg PO DAILY #30 tablet 10/09/17 [Rx] Levofloxacin [Levaquin] 500 mg PO DAILY #3 tablet 10/09/17 [Rx] Phos-NaK [Neutra-Phos] 2 each PO DAILY PRN #30 powd.pack 10/09/17 [Rx] Allergies/Adverse Reactions: 3 Allergy/AdvReac Type Severity Reaction Status Date / Time ferrous sulfate Allergy Unknown Unknown Verified 10/06/17 08:56 Sulfa (Sulfonamide Allergy Unknown Unknown Verified 10/06/17 08:56 Antibiotics) Procedures/tests Complete & Pending: Procedures Performed prior 72 hours Category Date Time Status CTA chest [CT angio chest] [CT] Stat Cat Scan 10/08/17 11:33 Completed IR thoracentesis ultrasound [IR] Routine IR 10/09/17 Completed Date of admission: 10/06/17 12:48 Primary care physician: Rik Cisneros Consults: 10/06/17 13:18 Consult to Oncology Radiation [CONS] Routine Consulting Provider: Oncology Radiation [place] Reason for Consult: radiation therapy Time Notified: 13:18 Call Completed: Yes 10/08/17 13:55 Consult to Oncology Hematology [CONS] Routine Consulting Provider: Hansel Monge Reason for Consult: stage four NSCLC, SOB. no PE, but concern that mass is causing obstruction Call Completed: Yes 10/08/17 16:27 Consult to Interventional Radiology [CONS] Routine Consulting Provider: Radiology Interventional [facility] Reason for Consult: R pleural effusion/needs thoracentesis Call Completed: No - Patient Status Disposition: Home, Self-Care Condition: Good - Discharge Instructions Instructions: Leukocytosis (DC) Follow Up With: Rik Cisneros DO [Primary Care Provider] - (This doctor will not make appointments for us he wants the patient to call and make the appointments) Larry Soliz MD [Partnered Physician] - 10/17/17 11:20 am Additional Instructions: Follow up with PCP in one week. Take all meds as prescribed. Please note: your hydrochlorothiazide was stopped due to severe electrolyte imbalance. Please take new dose of Lasix daily with potassium and phosphate supplements. Follow up with radiation and heme/onc. Please return to ED if you develop fever, chills , chest pain, severe shortness of breath. Hospital course: Ms. Liao is a 57 year old female - Time Spent with Patient Total time spent providing and/or coordinating discharge services: 39min - Constitutional Vitals: Temp Pulse Resp BP Pulse Ox 98.5 F 104 22 145/91 98 10/09/17 11:29 10/09/17 11:29 10/09/17 11:29 10/09/17 11:29 10/09/17 11:29 - Attending Attestation I examined this patient and my medical decision-making was reviewed with the Resident Physician on 10/09/17. I agree with the documented findings, disposition and treatment plan as described except to the extent set forth below. Ms Liao has been admitted for tachycardia and leukocytosis consistent with sepsis. She is now afebrile and WBC has improved. Clinically she is much improved as well. Her dyspnea is better and only occurs when lying flat now. Had thoracentesis this AM and 300ml removed. She is going to radiation. Cultures have been negative. At this time she has improved enough for discharge home. Exam Alert. Comfortable Mucus membranes dry Heart reg Decreased breath sounds. Scattered rales in L base Abd soft Edema present Plan D/C home today Omicef and Levaquin Follow up with PCP and oncology. <Aliza Lerner - Last Filed: 10/10/17 22:49> Date of Encounter: 10/10/17 Time of Encounter: 10:58 - Discharge Diagnosis (1) Sepsis Priority: Primary Status: Resolved Qualifiers: Sepsis type: sepsis due to unspecified organism Qualified Code(s): A41.9 - Sepsis, unspecified organism (2) Urinary tract infection Priority: Primary Status: Suspected Qualifiers: Urinary tract infection type: acute cystitis Hematuria presence: without hematuria Qualified Code(s): N30.00 - Acute cystitis without hematuria (3) Non-small cell carcinoma of lung Priority: Secondary Status: Chronic Qualifiers: Laterality: left Qualified Code(s): C34.92 - Malignant neoplasm of unspecified part of left bronchus or lung (4) Metastatic cancer to brain Priority: Secondary Status: Chronic (5) Electrolyte abnormality Priority: Secondary Status: Acute (6) DVT prophylaxis Priority: Secondary Status: Acute Procedures/tests Complete & Pending: Procedures Performed prior 72 hours Category Date Time Status CTA chest [CT angio chest] [CT] Stat Cat Scan 10/08/17 11:33 Completed IR thoracentesis ultrasound [IR] Routine IR 10/09/17 Taken Date of admission: 10/06/17 12:48 Primary care physician: Rik Montenegro Colgrace Consults: 10/06/17 13:18 Consult to Oncology Radiation [CONS] Routine Consulting Provider: Oncology Radiation [place] Reason for Consult: radiation therapy Time Notified: 13:18 Call Completed: Yes 10/08/17 13:55 Consult to Oncology Hematology [CONS] Routine Consulting Provider: Hansel Monge Reason for Consult: stage four NSCLC, SOB. no PE, but concern that mass is causing obstruction Call Completed: Yes 10/08/17 16:27 Consult to Interventional Radiology [CONS] Routine Consulting Provider: Radiology Interventional Cols Reason for Consult: R pleural effusion/needs thoracentesis Call Completed: No Discharging clinician: Aliza Lerner Anticipated date of discharge: 10/09/17 - Patient Status Functional capacity at discharge: independent ambulation Overall status at discharge: patient is progressing back to baseline - Diet and Activity Activity: increase activity as tolerated Diet: regular diet Hospital course: Ms. Liao is a 57 year old female with stage iv non-small cell lung carcinoma with brain metastasis who presented to the ED from an appointment for whole brain radiation with tachycardia HR 150s and symptoms of dizziness and lightheadedness. She reported symptoms of weakness and nausea but denied fevers , chills, vomiting, urinary symptoms. In the ED, pt's vitals were significant for tachycardia in 150s, reportedly hypotensive in the radiation office however stable in ED. Labs were significant for WBC of 31 with left shift, hypokalemia of 3.4, hyponatremia of 132, lactic acid of 2.0, mag of 1.5, TSH of 0.232, UA was suggestive for UTI. CXR was unremarkable. She was admitted to hospital for further evaluation of sepsis secondary to unknown source. She was started on vancomycin and zosyn. During course of hospital stay, patient gradually improved. Blood cultures and urine cultures showed no growth. During her course, she became experienced significant SOB and CTA chest was ordered which showed progression of her known cancer and small bilateral effusions. No evidence of PE. She did have a thoracentesis removing 300 cc of serous fluid with improvement of her symptoms. Suspected etiology of her SOB was excessive fluid resuscitation for sepsis protocol. Oncology was consulted during admission. Pt clinically improved during course of admission and on day of discharge, she was medically stable. Her white count improved, having returned back to wnl. Her tachycardia, BP, improved. Her symptoms had resolved except for mild SOB with orthopnea which did improve. She will be discharged home on omnicef and Levaquin and instructed to follow up with her PCP as well as her oncologist. All questions were answered. - Time Spent with Patient Total time spent providing and/or coordinating discharge services: - Constitutional Vitals: Temp Pulse Resp BP Pulse Ox 97.8 F 91 24 146/80 98 10/09/17 07:19 10/09/17 07:19 10/09/17 07:19 10/09/17 07:19 10/09/17 09:31 General appearance: Present: mild distress, A&O X 3, pleasant, answers questions appropriately - Eye Eye exam: Present: EOMI, scleral icterus - Neck Neck exam general surgery: Present: full ROM, supple - Respiratory Respiratory exam: Present: CTAB. Absent: accessory muscle use, respiratory distress, wheezes - Cardiovascular Cardiovascular exam: Present: RRR, +S1, +S2. Absent: diastolic murmur, systolic murmur - GI/Abdominal GI/Abdominal exam: Present: normal bowel sounds, soft - Extremities Exam Extremities exam: Absent: cyanotic, pedal edema - Neurological Exam Neurological exam: Present: alert, oriented X3, no focal deficits - VTE Documentation of Mechanical Device: Intermittent pneumatic compression device
[2017-10-09 11:35] LABS: VBG Ionized Calcium 1.05 mmol/L (1.15-1.35); VBG PH 7.39 pH Units (7.32-7.42)
[2017-10-09 11:37] VITALS: BP 145/91
== END 2017-10-09 14:27 | disposition home or self-care (01) | DRG 872 ==
LOC: 2ANU 08:38 → EMEROO 08:38 → SUATTDRO 12:48 → 2ANU 14:24 → 2NNU 19:38
PROVIDERS: ADMIT Nurse Practitioner Acute Care; ATTEND Internal Medicine

== ENCOUNTER 2017-10-12 13:19 | Inpatient (IN) ==
[~2017-10-12 13:19] MED LIST: Aminoglycoside Consult 1 EACH MC ONE
[2017-10-12] MEDS ORDERED: 0.9 % Sodium Chloride 1,000 ML IVC ONE ×2 (13:21→14:41)
--- NOTE | 2017-10-12 13:26 | Emergency Department Note ---
Disposition Clinical Impression: Elevated troponin, Hyperbilirubinemia, Metastatic cancer to brain, Weakness, Electrolyte abnormality, Dehydration Sepsis Qualifiers: Sepsis type: sepsis due to unspecified organism Qualified Code(s): A41.9 - Sepsis, unspecified organism Non-small cell carcinoma of lung Qualifiers: Laterality: unspecified laterality Qualified Code(s): C34.90 - Malignant neoplasm of unspecified part of unspecified bronchus or lung Urinary tract infection Qualifiers: Urinary tract infection type: site unspecified Hematuria presence: without hematuria Qualified Code(s): N39.0 - Urinary tract infection, site not specified Disposition: Admitted As Inpatient Condition: Fair Time of Disposition: 16:49 Weakness HPI - General Chief complaint: ED Weakness Stated complaint: weakness Time Seen by Provider: 10/12/17 13:21 Source: patient, family Limitations: no limitations Nursing Notes Reviewed: Yes Vital Signs Reviewed: Yes - History of Present Illness HPI Narrative: 57-year-old female history of lung cancer with metastasis to the brain currently undergoing radiation presents to the ED via EMS for weakness. Her last radiation treatment was 2 days ago on Friday. Since then she has been progressively more week and tired. Not quite doing as much. She has not been eating or taking her medications either. This was treatment 8 of . Her oncologist is Dr. Soliz her radiation oncologists is Dr. Sands. She was just discharge from the hospital for similar complaints 3 days ago on where the family states she was significantly much better than this. At this time patient denies any chest pain, shortness of breath or any extremity weakness. She just states feeling very tired. She did recognize my face as I admitted her this past week. She moves all 4 extremities without any focal neural deficits. She does complaining of a sore throat as she is unable to swallow her medications which includes a thyroid medication. At this point concern for sepsis, she is afebrile with the heart rate elevated 130. Septic workup initiated with the CT of her head. She will likely require admission. Family in the room and are in agreement with this plan. Pt Subjective Complaint: generalized weakness/fatigue Pain Scale: 0 - Related Data Home Medications Medication Instructions Recorded Confirmed predniSONE [Prednisone] 5 mg PO HS 07/25/17 10/12/17 Docusate Sodium [Dok] 100 mg PO DAILY PRN 10/12/17 10/12/17 LORazepam [Ativan] 1 mg PO DAILY PRN 10/12/17 10/12/17 Loperamide [Imodium] 2 mg PO QID PRN 10/12/17 10/12/17 Minocycline [Minocin] 100 mg PO DAILY 10/12/17 10/12/17 hydroCHLOROthiazide 25 mg PO DAILY 10/12/17 10/12/17 [Hydrochlorothiazide] Previous Rx's Medication Instructions Recorded Levothyroxine [Synthroid] 100 mcg PO DAILY #90 tablet 03/21/17 Potassium Chloride [K-Tab ER] 40 meq PO BID #180 tablet.er 03/21/17 Valacyclovir HCl [Valtrex] 1,000 mg PO DAILY #30 tab 07/25/17 Furosemide [Lasix] 20 mg PO DAILY #30 tablet 10/09/17 Allergies Allergy/AdvReac Type Severity Reaction Status Date / Time ferrous sulfate Allergy Unknown Unknown Verified 10/12/17 16:51 Sulfa (Sulfonamide Allergy Unknown Unknown Verified 10/12/17 16:51 Antibiotics) Review of Systems: As Per HPI Limitations: ROS unobtainable due to patients medical condition (Review system assisted by family) Past Medical History - Past Medical History Attestation: Yes The following information was validated with the patient. Source: patient Medical history: Reports: cancer, thyroid disease, other Psychiatric history: Reports: no psych history - Social History Smoking Status: Never smoker Smokeless Tobacco Status: No Alcohol use: Reports: none Drug use: Reports: none Physical Exam - General Limitations: no limitations General appearance: alert, lethargic, other (Ill appearing) - Head Head exam: atraumatic, normocephalic, normal inspection, other (Head shaved) - Eye Eye exam: Present: normal appearance, PERRL, EOMI. Absent: scleral icterus - ENT ENT exam: normal exam, normal oropharynx, mucous membranes dry, other (No signs of oral thrush) - Neck Neck exam: Present: normal inspection, full ROM, trachea midline - Chest Chest inspection: Present: normal inspection, symmetric chest wall rise, other ( Port in right anterior chest). Absent: tenderness, rash - Respiratory Respiratory exam: Present: normal lung sounds bilaterally. Absent: respiratory distress, wheezes - Cardiovascular Cardiovascular exam: Present: regular rate, normal rhythm, normal heart sounds - Abdominal Exam Abdominal exam: Present: soft, Non-Tender. Absent: tenderness, distention, guarding, rebound, rigidity - Extremities Exam Extremities exam: Present: normal inspection, full ROM, normal capillary refill. Absent: tenderness, pedal edema - Neurological Exam Neurological exam: Present: alert, oriented X3, CN II-XII intact - Expanded Neurological Exam Patient oriented to: Present: person, place Cranial nerves: EOM function (II, III, IV, ): Normal, facial sensation (V): Normal, facial palsy (VII): Normal, gag reflex (IX): Normal, spinal accessory function (XI): Normal, tongue deviation (XII): Normal Motor strength - LUE: 4/5 Motor strength - RUE: 4/5 Motor strength - LLE: 4/5 Motor strength - RLE: 4/5 Sensory exam upper extremity: light touch: Normal Sensory exam lower extremity: light touch: Normal - Psychiatric Psychiatric exam: Present: normal mood, flat affect - Skin Skin exam: Present: warm, dry, intact, pallor Course - Reevaluation(s) Reevaluation #1: Critical troponin is 1.64. This is significantly elevated from prior. Awaiting a CT of the head prior to aspirin and possible heparin administration. Patient meets 2 of 4 SIRS criteria with leukocytosis and tachycardia. Placed on Zosyn, Levaquin, and Vancomycin for empiric coverage. Blood cultures obtained. Her lactate is elevated 2.2. She is not hypotensive but she has received 2 L normal saline bolus which meets the 30 mL per kilogram fluid resuscitation. Time: 14:41 Reevaluation #2: Urinalysis appears consistent with infection. Her lactase 2.2 awaiting repeat but she has been fluid resuscitated. She remained stable here. She reports some mild discomfort in her pubic region, we have given or 2 L of normal saline without urine output suspect this is some retention. At her request as well as for strict monitoring of input and output a [place] catheter was placed with immediate 1200 mL urine. Patient reports improvement with fluid hydration. She appears well. She denies any chest pain. Patient has been given aspirin. Spoke to the ui developer who does not recommend heparin at this time. I spoke to the famil regarding her critical medical condition. At this point she does not have a living will or starting discussion on her goals of care. Recommend beginning this discussion. They were open to this. She would benefit a possible consultation with palliative care on admission. At this time she will be admitted for weakness, dehydration, elevated troponin, urinary tract infection, sepsis, and lung metastasis to brain. Family and patient are agreement with admission. Chest X-Ray 10/12/17 13:21 IMPRESSION: Unchanged left basilar airspace opacities and pleural effusion compared with 10/09/2017. D/ / Dylan Mahajan MD / Dylan Mahajan MD Interpreting Provider: Dylan Mahajan MD Head CT 10/12/17 13:22 IMPRESSION: Atrophy and small vessel ischemic disease. New focal hypodensities within the left frontal parietal region can be related to post treatment related change or ischemia in the appropriate clinical setting. Well-defined hypodensities at bilateral cerebellar hemispheres are suggestive of encephalomalacia or prior infarct. MR may be helpful for further characterization. D/ / Jermain Cutler MD / Jermain Cutler MD Interpreting Provider: Jermain Cutler MD - Consultations Consultation #1: Spoke to the ui developer Dr. Connelly regarding the elevated troponin 1.64. EKG did not show any acute ischemic changes. Given patient's medical condition and underlying issues would not heparinize at this time. Will consult on the floor, recommend trending the troponin. Time: 16:29 Vital Signs Temperature 98.2 F 10/12/17 13:21 Pulse Rate 130 10/12/17 13:21 Respiratory Rate 16 10/12/17 13:21 Blood Pressure 119/72 10/12/17 13:21 O2 Sat by Pulse Oximetry 96 10/12/17 13:21 Temperature 98 F 10/12/17 16:25 Pulse Rate 112 10/12/17 16:25 Respiratory Rate 16 10/12/17 16:25 Blood Pressure 117/77 10/12/17 16:25 O2 Sat by Pulse Oximetry 100 10/12/17 16:25 Oxygen Delivery Oxygen Delivery Nasal Cannula Weakness - MDM Narrative Medical decision making narrative: Patient was discussed with my attending physician who agrees with ED management and final disposition. They independently evaluated the patient. Please refer to their attestation to this encounter for additional information. This note was generated by [employer] voice recognition software and as a result grammatical or spelling errors may occur using this program. - Medical Records Medical records reviewed: Yes I reviewed the patient's medical records. - Lab Data Lab results reviewed: Yes I reviewed the patient's lab results. Result diagrams: 10/12/17 14:03 10/12/17 14:03 Lab Results 10/12/17 10/12/17 10/12/17 Range/Units 13:43 14:03 14:03 WBC 14.1 H D (4.3-11.1) K/mcL RBC 4.09 (3.82-4.97) M/mcL Hgb 12.1 D (11.5-15.4) g/dL Hct 38.8 (35.3-44.9) % MCV 94.9 (83.0-100.0) fL MCH 29.6 (28.0-33.3) pg MCHC 31.2 L (31.6-35.5) g/dL RDW 17.9 H (11.5-14.5) % Plt Count 140 (140-400) K/mcL MPV 11.7 (9.4-12.4) fL Seg Neutrophils % 76.0 % Band Neutrophils % 2.0 (0-4) % Lymphocytes % 6.0 % Monocytes % 10.0 % Eosinophils % 6.0 % Neutrophils # 11.0 H (1.6-8.9) K/mcL Lymphocytes # 0.9 (0.6-4.6) K/mcL Monocytes # 1.4 H (0.0-1.3) K/mcL Eosinophils # 0.9 H (0.0-0.6) K/mcL Reactive Lymphocytes Present A (Not Present) Platelet Estimate Normal (Normal) Polychromasia 1+ A (Not Present) Anisocytosis 1+ A (Not Present) PT 17.2 H (9.4-12.1) Seconds INR 1.6 Sodium (136-145) mEq/L Potassium (3.5-4.5) mEq/L Chloride (98-109) mEq/L Carbon Dioxide (19-29) mEq/L BUN (7-20) mg/dL Creatinine (0.57-1.11) mg/dL Est GFR ( Amer) (> 60) Est GFR (Non-Af Amer) (> 60) BUN/Creatinine Ratio (6-26) Glucose (70-99) mg/dL Calculated Osmolality (280-300) Lactic Acid (0.5-2.2) mmol/L Calcium (8.6-10.8) mg/dL Total Bilirubin (0.2-1.2) mg/dL AST (5-34) Units/L ALT (0-55) Units/L Alkaline Phosphatase (38-126) Units/L Troponin I (0-0.03) ng/mL Serum Total Protein (6.0-8.3) g/dL Albumin (3.5-5.0) g/dL Globulin (2.4-3.5) g/dL Albumin/Globulin Ratio (1.1-2.2) TSH (0.350-4.840) mcIU/mL Urine Color Dark Yellow (Yellow) Urine Clarity Cloudy A (Clear) Urine pH 6.5 (5.0-8.0) pH Units Ur Specific [place] 1.020 (1.010-1.025) Urine Protein 100 H (Neg-Trace) mg/dL Urine Glucose (UA) Normal (Normal) mg/dL Urine Ketones 80 H (Negative) mg/dL Urine Blood Negative (Negative) Urine Nitrite Negative (Negative) Urine Bilirubin Small H (Negative) Urine Urobilinogen Normal (Normal) mg/dL Ur Leukocyte Esterase Trace H (Negative) Urine Microscopic RBC 0-3 (0-3) per hpf Urine Microscopic WBC 15-30 H (0-3) per hpf Ur Squamous Epith Cells Many H (None-Few) per lpf Urine Bacteria Moderate H (None-Few) per hpf Hyaline Casts Test Not Performed Urine Starch Present Urine Mucus Many H (Few) Ur Culture Indicated? NO (NO) 10/12/17 10/12/17 10/12/17 Range/Units 14:03 14:03 14:03 WBC (4.3-11.1) K/mcL RBC (3.82-4.97) M/mcL Hgb (11.5-15.4) g/dL Hct (35.3-44.9) % MCV (83.0-100.0) fL MCH (28.0-33.3) pg MCHC (31.6-35.5) g/dL RDW (11.5-14.5) % Plt Count (140-400) K/mcL MPV (9.4-12.4) fL Seg Neutrophils % % Band Neutrophils % (0-4) % Lymphocytes % % Monocytes % % Eosinophils % % Neutrophils # (1.6-8.9) K/mcL Lymphocytes # (0.6-4.6) K/mcL Monocytes # (0.0-1.3) K/mcL Eosinophils # (0.0-0.6) K/mcL Reactive Lymphocytes (Not Present) Platelet Estimate (Normal) Polychromasia (Not Present) Anisocytosis (Not Present) PT (9.4-12.1) Seconds INR Sodium 137 (136-145) mEq/L Potassium 3.1 L (3.5-4.5) mEq/L Chloride 104 (98-109) mEq/L Carbon Dioxide 14 L (19-29) mEq/L BUN 7 (7-20) mg/dL Creatinine 0.69 (0.57-1.11) mg/dL Est GFR ( Amer) > 60 (> 60) Est GFR (Non-Af Amer) > 60 (> 60) BUN/Creatinine Ratio 10 (6-26) Glucose 93 (70-99) mg/dL Calculated Osmolality 282 (280-300) Lactic Acid 2.2 (0.5-2.2) mmol/L Calcium 7.9 L (8.6-10.8) mg/dL Total Bilirubin 2.7 H (0.2-1.2) mg/dL AST 56 H (5-34) Units/L ALT 83 H (0-55) Units/L Alkaline Phosphatase 474 H (38-126) Units/L Troponin I 1.64 H* (0-0.03) ng/mL Serum Total Protein 5.7 L (6.0-8.3) g/dL Albumin 1.9 L (3.5-5.0) g/dL Globulin 3.8 H (2.4-3.5) g/dL Albumin/Globulin Ratio 0.5 L (1.1-2.2) TSH 1.156 (0.350-4.840) mcIU/mL Urine Color (Yellow) Urine Clarity (Clear) Urine pH (5.0-8.0) pH Units Ur Specific [place] (1.010-1.025) Urine Protein (Neg-Trace) mg/dL Urine Glucose (UA) (Normal) mg/dL Urine Ketones (Negative) mg/dL Urine Blood (Negative) Urine Nitrite (Negative) Urine Bilirubin (Negative) Urine Urobilinogen (Normal) mg/dL Ur Leukocyte Esterase (Negative) Urine Microscopic RBC (0-3) per hpf Urine Microscopic WBC (0-3) per hpf Ur Squamous Epith Cells (None-Few) per lpf Urine Bacteria (None-Few) per hpf Hyaline Casts Urine Starch Urine Mucus (Few) Ur Culture Indicated? (NO) - Radiology Data Radiology results reviewed: Yes I reviewed the patient's radiology results. Chest X-Ray 10/12/17 13:21 IMPRESSION: Unchanged left basilar airspace opacities and pleural effusion compared with 10/09/2017. D/ / Dylan Mahajan MD / Dylan Mahajan MD Interpreting Provider: Dylan Mahajan MD Head CT 10/12/17 13:22 IMPRESSION: Atrophy and small vessel ischemic disease. New focal hypodensities within the left frontal parietal region can be related to post treatment related change or ischemia in the appropriate clinical setting. Well-defined hypodensities at bilateral cerebellar hemispheres are suggestive of encephalomalacia or prior infarct. MR may be helpful for further characterization. D/ / Jermain Cutler MD / Jermain Cutler MD Interpreting Provider: Jermain Cutler MD - EKG Data EKG attestation: Yes I reviewed and interpreted this EKG. EKG results narrative: EKG performed 1332 sinus tachycardia 1 28 bpm, poor R wave progression, Q waves seen in inferior leads, isolated ST elevation and lead III some T wave depression in lateral leads, appear to her prior EKG performed 10/06/2017 which shows similar findings of ST depression in the lateral lead with Q waves. Repeat EKG was performed after elevated troponin resulted. Performed at 1500 sinus tachycardia 1 15 bpm with similar consistent findings of ST changes. No evolving ST elevations. Critical Care Time Critical Care Time: Yes Total Critical Care Time: 35 Attestation: Critical care time 35 minutes. Attestation Statement - Attestation Attestation: Patient was seen with resident physician. I reviewed the history, physical, assessment and plan, and agree with the findings. I also personally evaluated this patient and had [id number] time with this patient. 57-year-old female with metastatic brain cancer presents emergency Department with increasing weakness and confusion. Patient is unable to provide any history but she does follow commands. All other history was provided by family. Please see resident note for additional information. On examination vital signs patient's tachycardia, blood pressure was stable. ENT dry mucous membranes no obvious cranial defects. Heart tachycardic regular rhythm. Lungs clear. Abdomen soft nontender. Extremities unremarkable. Neurologically again follows commands moves all extremities but is confused and is unable to have a conversation. Skin no obvious rashes. ED course we will do full septic workup on the patient. Her confusion could be related simply to dehydration, or could represent something worsening with her brain cancer. We will admit the patient to the hospital service for further workup once her initial findings have been received. Patient's troponin was positive. We spoke with cardiology who did not feel that intervention was indicated at this time considering her multiple other issues. Her urine was also positive she had an elevated white cell count. And her CT scan showed possibility of some new changes with no intracranial hemorrhage. Patient has a multitude of issues and I think sepsis is on the list. She was aggressively treated with antibiotics hospital service was notified and admission was arranged. I agree with resident physician assessment and plan. Critical care time was 35 minutes.
[2017-10-12 13:52] LABS: Bilirubin,Urine Small (Negative); Blood,Urine Negative (Negative); Clarity,Urine Cloudy (Clear); Color,Urine Dark Yellow (Yellow); Glucose,Urine (UA) Normal (Normal); Ketones,Urine 80 mg/dL (Negative); Leukocyte Esterase,Urine Trace (Negative); Nitrite,Urine Negative (Negative); PH,Urine 6.5 pH Units (5.0-8.0); Protein,Urine 100 mg/dL (Neg-Trace); Urobilinogen,Urine Normal (Normal)
[2017-10-12 13:54] LABS: Squamous Epithelial Cell,Urine Many per lpf (None-Few); WBC,Urine 15-30 per hpf (0-3)
[2017-10-12 14:06] LABS: Mucus,Urine Many (Few)
[2017-10-12 14:07] LABS: Bacteria,Urine Moderate per hpf (None-Few); RBC,Urine 0-3 per hpf (0-3)
[2017-10-12 14:14] LABS: Hematocrit 38.8 % (35.3-44.9); Mean Corpuscular HGB Conc 31.2 g/dL (31.6-35.5); Mean Corpuscular Hemoglobin 29.6 pg (28.0-33.3); Mean Corpuscular Volume 94.9 fL (83.0-100.0); Mean Platelet Volume 11.7 fL (9.4-12.4); Platelet Count 140 K/mcL (140-400); Red Blood Count 4.09 M/mcL (3.82-4.97); Red Cell Distribution Width 17.9 % (11.5-14.5)
[2017-10-12 14:20] LABS: Hemoglobin 12.1 g/dL (11.5-15.4); INR 1.6; Prothrombin Time 17.2 Seconds (9.4-12.1)
[2017-10-12 14:28] LABS: Alanine Aminotransferase 83 Units/L (0-55); Albumin/Globulin Ratio 0.5 (1.1-2.2); Alkaline Phosphatase 474 Units/L (38-126); Aspartate Amino Transferase 56 Units/L (5-34); BUN/Creatinine Ratio 10 (6-26); Bilirubin,Total 2.7 mg/dL (0.2-1.2); Blood Urea Nitrogen 7 mg/dL (7-20); Calcium 7.9 mg/dL (8.6-10.8); Carbon Dioxide 14 mEq/L (19-29); Chloride 104 mEq/L (98-109); Globulin 3.8 g/dL (2.4-3.5); Glucose 93 mg/dL (70-99); Osmolality,Calculated 282 (280-300); Potassium 3.1 mEq/L (3.5-4.5); Sodium 137 mEq/L (136-145); Total Protein 5.7 g/dL (6.0-8.3); eGFR For African Americans > 60 (> 60); eGFR For Non-African Americans > 60 (> 60)
[2017-10-12 14:32] LABS: Albumin 1.9 g/dL (3.5-5.0)
[2017-10-12 14:51] LABS: Thyroid Stimulating Hormone 1.156 mcIU/mL (0.350-4.840)
[2017-10-12] MEDS ORDERED: Vancomycin 1,000 MG in D5% in Water 250 ML IVPB ONE (15:03)
[2017-10-12] MEDS ORDERED: Levofloxacin 750 MG/150 ML 750 MG/150 ML BAG IVPB ONE (15:03)
[2017-10-12] MEDS ORDERED: Piperacillin/Tazobactam 3.375 GM in Water for inj. (sterile) 20 ML IVP ONE (15:03)
[2017-10-12] MEDS ORDERED: Potassium Chloride 40 MEQ, Lidocaine 1% 2 ML in D5% in Water 500 ML IVPB ONE (15:08)
[2017-10-12 15:34] LABS: Eosinophils # 0.9 K/mcL (0.0-0.6); Lymphocytes # 0.9 K/mcL (0.6-4.6); Monocytes # 1.4 K/mcL (0.0-1.3); Platelet Estimate Normal (Normal); Reactive Lymphocytes Present (Not Present)
[2017-10-12 15:35] LABS: Anisocytosis 1+ (Not Present); Polychromasia 1+ (Not Present)
[2017-10-12] MEDS ORDERED: Aspirin 81 MG TAB.CHEW PO STA (16:28)
[2017-10-12] MEDS ORDERED: Acetaminophen 325 MG TABLET PO PRN (18:05)
[2017-10-12] MEDS ORDERED: Naloxone 0.4 MG/ML INJ IVP PRN (18:05)
[2017-10-12] MEDS ORDERED: *HR* HYDROcodone/Acet 5/325 mg TABLET PO PRN (18:05)
[2017-10-12] MEDS ORDERED: Ondansetron 4 MG/2 ML VIAL IVP PRN (18:05)
[2017-10-12] MEDS ORDERED: *HR* LORazepam 1 MG TABLET PO PRN (18:19)
[2017-10-12] MEDS ORDERED: 0.9 % Sodium Chloride 1,000 ML IVC SCH (18:30)
--- NOTE | 2017-10-12 18:33 | Internal Med History&Physical ---
<CarylGuevara Thais - Last Filed: 10/12/17 19:13> Date of Encounter: 10/12/17 Time of Encounter: 17:30 Assessment and Plan (1) Sepsis Current visit: Yes Status: Acute Patient presents with urosepsis based on HR of 111 bpm, WBC of 14.1, and current unresolved UTI. Lactic acid currently 2.2. Will order routine lactic acid and timed if warranted. Pt. received two 1L boluses of 0.9 NS in the ED. Will continue IV 0.9 NS @ 100 mL/HR. Blood cultures x2 ordered. Continuous cardiac telemetry. Pts. initial troponin was 1.64 which may be d/t demand ischemia. Cardiology consulted. Supplemental O2 w/titration and SpO2 monitoring. Pt. was given IVPB levaquin 750 mg, Zosyn 3.375 gm, and vancomycin w /pharmacy dosing in ED. Will discontinue levaquin and continue Zosyn 3.375 gm Q8 and vancomycin w/pharmacy dosing for infection coverage. Will adjust abx coverage based on culture results. Monitor I&O. Falls/safety precautions. Pt. discussed w/Dr. Back who agrees w/plan of care. Pt. is at high risk for severe sepsis and further morbidity based on current sx, unresolved UTI, immunocompromised status d/t stage IV lung cancer and tx, and hx. Inpatient. Qualifiers: Sepsis type: sepsis due to unspecified organism Qualified Code(s): A41.9 - Sepsis, unspecified organism (2) Urinary tract infection Current visit: Yes Status: Acute Pt. recently treated for UTI on 10/06. Now presents w/similar sx. WBC now 14.1 on admission. Pt. was discharged on PO levaquin but family reports she never took the medication d/t extreme fatigue following radiation therapy on Friday. IVPB levaquin 750 mg, Zosyn 3.375 gm, and vancomycin w/pharmacy dosing administered in ED. Will discontinue levaquin and continue IVPB Zosyn 3.375 gm Q8 and vancomycin w/pharmacy dosing for infection coverage. Blood cultures x2 ordered. Will adjust abx coverage based on culture results. Pt. had [place] catheter placed in ED at her request. Monitor I&O and f/u labs. Continue IV 0.9 NS. Qualifiers: Urinary tract infection type: site unspecified Hematuria presence: without hematuria Qualified Code(s): N39.0 - Urinary tract infection, site not specified (3) Hypokalemia Current visit: Yes Status: Acute Acute hypokalemia with potassium level of 3.1 on admission. ED administered IVPB potassium in ED. Will continue pts. PO potassium and monitor potassium levels in f/u labs. Continuous cardiac telemetry. (4) Elevated troponin Current visit: Yes Status: Acute Acutely elevated troponin of 1.64 on admission. Pts. previous troponin during last admission on 10/06 was 0.02. Pt. denies any chest pain, discomfort, or palpitations on exam. Concern is for demand ischemia from current infection versus [place]. Cardiology consulted in ED and will see pt. and we appreciate the consult. Cardiology recommendation is not to heparinize pt. at this time d/t brain mets. Will trend troponin x2. Continuous cardiac telemetry. Echocardiogram ordered. (5) Dehydration Current visit: Yes Status: Acute Acute dehydration d/t infection and reduced intake. Pt. denies N/V/Diarrhea. Pt. received 2L of IV 0.9 NS in ED. Will continue NS @ 100 mL/HR. Monitor I&O. Pt. requested to have urinary catheter placed in ED. Will hold pts. lasix for now unless pt. begins to show signs of fluid overload. (6) Weakness Current visit: Yes Status: Acute Acute and severe weakness and fatigue likely d/t current cancer and recent tx on Friday as well as unresolved urosepsis. Pt. also reports that she is not eating or drinking for the past three days. Nutrition consult placed for PO supplementation. Falls/safety precautions. (7) Sinus tachycardia Current visit: Yes Status: Acute Pt. presents w/acute tachycardia d/t current urosepsis. Pts. initial troponin is 1.64 most likely d/t demand ischemia. Cardiology consulted in ED w/ recommendation to not heparinize pt. at this time d/t brain mets. Continuous cardiac telemetry. Pt. to be monitored closely.. 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 Lung cancer is stage IV. Pt. is followed by Dr. Soliz in Oncology and Dr. Sands in Radiation Oncology. Consults placed to both d/t concerns from family to let them know about pts. current admission. Pt. is scheduled for radiation txs this week. Continue pts. prednisone. Qualifiers: Laterality: unspecified laterality Qualified Code(s): C34.90 - Malignant neoplasm of unspecified part of unspecified bronchus or lung (9) DVT prophylaxis Current visit: Yes Status: Acute Bilateral SCDs on LEs for DVT prophylaxis. Internal Medicine - H&P: HPI Chief complaint: Weakness/Fatigue Admitted From: Emergency Dept Plans for Post Hospital Care: Home History of present illness: Ms. Liao is a 57 year old female with medical history of thyroid disease and lung cancer with metastasis to the brain presents from the ED with chief complaint of extreme weakness and fatigue for the past 2 days. Patient was discharged on 10/09/17 for UTI and sepsis. Patient reports her last radiation treatment was 2 days ago on Friday and since then has become much more progressively weak and tired. She is followed by Dr. Soliz and Dr. Sands and states she is due for radiation treatments this week. Patient reports weakness/ fatigue and loss of appetite but denies cough, headache, nausea, vomiting, fever , chills, diarrhea, abdominal pain, chest pain, palpitations, changes in vision , unusual bleeding, dizziness, lightheadedness, pre-syncope, or syncope. Past Med Surg Social Fam HX - Past Medical History Source: patient, old records reviewed, obtained from family Medical history: cancer (Lung w/metastasis to brain), thyroid disease, other Psychiatric history: no psych history - Social History Smoking Status: Never smoker Smokeless Tobacco Status: No Alcohol use: none Drug use: none Current living situation: Home Activity Level: Independent ambulation, Uses cane/walker Recent Out of Country Travel Within the Last 8 Weeks: No Exposure or Possible Exposure to Illness During Travel: No - Family History Father Race: Family Member Ethnicity: Non- Living Status: Still Living Hx Family Endocrine Disorder: Yes (DM) Mother Race: Family Member Ethnicity: Non- Living Status: Age at : 79 Cause of : [place] Hx Family Cardiac Disorders: Yes ([place]) Brother Race: Family Member Ethnicity: Non- Living Status: Still Living Hx Family Medical Disorders: No Sister Race: Family Member Ethnicity: Non- Living Status: Still Living Hx Family Cardiac Disorders: Yes (HTN, HLD) Internal Medicine - H&P: Meds Levothyroxine [Synthroid] 100 mcg PO DAILY #90 tablet 03/21/17 [Rx] Potassium Chloride [K-Tab ER] 40 meq PO BID #180 tablet.er 03/21/17 [Rx] Valacyclovir HCl [Valtrex] 1,000 mg PO DAILY #30 tab 07/25/17 [Rx] predniSONE [Prednisone] 5 mg PO HS 07/25/17 [History] Furosemide [Lasix] 20 mg PO DAILY #30 tablet 10/09/17 [Rx] Docusate Sodium [Dok] 100 mg PO DAILY PRN 10/12/17 [History] LORazepam [Ativan] 1 mg PO DAILY PRN 10/12/17 [History] Loperamide [Imodium] 2 mg PO QID PRN 10/12/17 [History] Minocycline [Minocin] 100 mg PO DAILY 10/12/17 [History] hydroCHLOROthiazide [Hydrochlorothiazide] 25 mg PO DAILY 10/12/17 [History] 3 Allergy/AdvReac Type Severity Reaction Status Date / Time ferrous sulfate Allergy Unknown Unknown Verified 10/12/17 16:51 Sulfa (Sulfonamide Allergy Unknown Unknown Verified 10/12/17 16:51 Antibiotics) All Systems PM: A 10-system review of systems was performed and is negative for pertinent findings except as documented above in the HPI. - Constitutional Constitutional: as per HPI, anorexia, fatigue, weakness, no chills, no fever(s) , no night sweats - EENT Eyes: no change in vision, no discharge, no pain, no photophobia Ears: no ear discharge, no ear pain, no tinnitus Nose, mouth and throat: no dysphagia, no nasal discharge, no neck pain, no sore throat - Breasts Breasts: as per HPI - Cardiovascular Cardiovascular ROS IM: no chest pain, no diaphoresis, no dyspnea, no lightheadedness, no palpitations, no syncope - Respiratory Respiratory: no cough, no dyspnea, no wheezing, no excessive phlegm production - Gastrointestinal Gastrointestinal: no abdominal pain, no diarrhea, no hematemesis, no hematochezia, no melena, no nausea, no vomiting - Genitourinary Genitourinary: no change in urinary stream, no dysuria, no flank pain, no hematuria Menstruation: as per HPI - Musculoskeletal Musculoskeletal ROS IM: no numbness, no tingling - Integumentary Integumentary IM: no rash, no unusual bruising - Neurological Neurological ROS: no confusion, no convulsions, no focal weakness, no numbness, no tingling, no tremor(s) - Psychiatric Psychiatric: as per HPI - Endocrine Endocrine IM: as per HPI - Hematologic/Lymphatic Hematologic/Lymphatic: no easy bruising - Allergic/Immunologic Allergic/Immunologic: as per HPI - Constitutional Vitals: Temp Pulse Resp BP Pulse Ox 98.2 F 112 16 107/64 100 10/12/17 17:50 10/12/17 16:25 10/12/17 17:50 10/12/17 17:50 10/12/17 16:25 General appearance: Present: cooperative, mild distress, A&O X 3, pleasant, answers questions appropriately - Head Head exam: Present: atraumatic, normocephalic - Eye Eye exam: Present: PERRL, conjuntiva pink, sclera anicteric Pupils: Present: PERRL - ENT ENT exam: Present: normal exam - Neck Neck exam general surgery: Present: supple, trachea midline. Absent: lymphadenopathy - Respiratory Respiratory exam: Present: CTAB. Absent: accessory muscle use, rales, rhonchi, wheezes - Cardiovascular Cardiovascular exam: Present: +S1, +S2, tachycardia. Absent: diastolic murmur, gallop, rubs, systolic murmur - Rectal Rectal exam: Present: deferred - Additional comments: exam deferred. - Extremities Exam Extremities exam: Present: warm, radial pulses palpable and symmetrical. Absent : calf tenderness, cyanotic, pedal edema - Back Exam Back exam: Present: normal inspection - Neurological Exam Neurological exam: Present: CN II-XII intact, oriented X3, no focal deficits. Absent: pronater drift, facial droop, speech deficit - Psychiatric Psychiatric exam: Present: normal affect, normal mood - Skin Skin exam: Present: dry, intact Internal Med - H&P Results - Labs CBC & Chem 7: 10/12/17 14:03 10/12/17 14:03 - EKG Data EKG shows normal: sinus rhythm Rate: tachycardia - EKG Data Prior EKG available for review: yes Interpretation IM: suggestive of ischemia EKG comments: 10/12/17 18:40 EKG dated 10/06/17 shows sinus tachycardia with short NM interval and moderate ST depression. EKG dated 10/12/17 shows sinus tachycardia with possible anterior myocardial infarction of indeterminate age and inferior myocardial infarction of indeterminate age. - Diagnostic Studies Chest x-ray Additional comments: Impressions Chest X-Ray 10/12/17 13:21 IMPRESSION: Unchanged left basilar airspace opacities and pleural effusion compared with 10/09/2017. D/ / Dylan Mahajan MD / Dylan Mahajan MD Interpreting Provider: Dylan Mahajan MD CT scan - head Additional comments: Impressions Head CT 10/12/17 13:22 IMPRESSION: Atrophy and small vessel ischemic disease. New focal hypodensities within the left frontal parietal region can be related to post treatment related change or ischemia in the appropriate clinical setting. Well-defined hypodensities at bilateral cerebellar hemispheres are suggestive of encephalomalacia or prior infarct. MR may be helpful for further characterization. D/ / Jermain Cutler MD / Jermain Cutler MD Interpreting Provider: Jermain Cutler MD <[email or web address] - Last Filed: 10/12/17 20:16> Date of Encounter: 10/12/17 Internal Medicine - H&P: HPI History of present illness: Ms. Liao is a 57 year old female All Systems PM: A 10-system review of systems was performed and is negative for pertinent findings except as documented above in the HPI. - Constitutional Vitals: Temp Pulse Resp BP Pulse Ox 98 F 111 18 107/66 100 10/12/17 18:22 10/12/17 18:22 10/12/17 18:22 10/12/17 18:22 10/12/17 18:22 Internal Med - H&P Results - Labs CBC & Chem 7: 10/12/17 14:03 10/12/17 14:03 - Attending Attestation I examined this patient and my medical decision-making was reviewed with the Resident Physician. I agree with the documented findings, disposition and treatment plan as described except to the extent set forth below.
[2017-10-12] MEDS ORDERED: Vancomycin 1,000 MG in D5% in Water 250 ML IVPB SCH (19:00)
[2017-10-12] MEDS: Magic Mouthwash 10 ML UD Cup PO SCH ×2 (20:37→21:08)
[2017-10-12] MEDS: Vancomycin 1,250 MG in D5% in Water 250 ML IVPB SCH (20:38)
[2017-10-12] MEDS ORDERED: predniSONE 5 MG TABLET PO SCH (21:00)
[2017-10-12] MEDS: Piperacillin/Tazobactam 3.375 GM/200 ML BAG IVPB SCH (22:33)
[2017-10-13] MEDS: *HR* Morphine 2 MG/ML SYRINGE IVP PRN (03:18)
[2017-10-13] MEDS: Piperacillin/Tazobactam 3.375 GM/200 ML BAG IVPB SCH (03:19)
[2017-10-13 03:24] LABS: Basophils % 0.2 %; Eosinophils # 0.2 K/mcL (0.0-0.6); Eosinophils % 1.4 %; Hematocrit 31.2 % (35.3-44.9); Lymphocytes # 0.3 K/mcL (0.6-4.6); Lymphocytes % 2.7 %; Mean Corpuscular HGB Conc 32.4 g/dL (31.6-35.5); Mean Corpuscular Hemoglobin 29.8 pg (28.0-33.3); Mean Platelet Volume 11.7 fL (9.4-12.4); Monocytes # 0.7 K/mcL (0.0-1.3); Monocytes % 5.4 %; Neutrophils # 10.5 K/mcL (1.6-8.9); Platelet Count 100 K/mcL (140-400); Red Blood Count 3.39 M/mcL (3.82-4.97); Red Cell Distribution Width 17.7 % (11.5-14.5); Segmented Neutrophils % 87.3 %
[2017-10-13 03:32] LABS: INR 1.6; Prothrombin Time 17.7 Seconds (9.4-12.1)
[2017-10-13 03:35] LABS: Activated Partial Thrombo Time 35.4 Seconds (26.0-36.0)
[2017-10-13 03:43] LABS: Hemoglobin 10.1 g/dL (11.5-15.4)
[2017-10-13 03:45] LABS: Alanine Aminotransferase 57 Units/L (0-55); Albumin/Globulin Ratio 0.5 (1.1-2.2); Alkaline Phosphatase 385 Units/L (38-126); Aspartate Amino Transferase 44 Units/L (5-34); Bilirubin,Total 1.9 mg/dL (0.2-1.2); Carbon Dioxide 16 mEq/L (19-29); Chloride 106 mEq/L (98-109); Chol/HDL Ratio 20.4 (0-4.9); Cholesterol 143 mg/dL (< 200); Glucose 106 mg/dL (70-99); HDL Cholesterol 7 mg/dL (40-59); LDL Cholesterol,Calculated 87 mg/dL (0-99); Magnesium 1.1 mg/dL (1.6-2.6); Osmolality,Calculated 271 (280-300); Potassium 2.7 mEq/L (3.5-4.5); Sodium 132 mEq/L (136-145); Triglycerides 245 mg/dL (< 150); eGFR For African Americans > 60 (> 60); eGFR For Non-African Americans > 60 (> 60)
[2017-10-13 03:48] LABS: Albumin 1.5 g/dL (3.5-5.0); Calcium 6.7 mg/dL (8.6-10.8); Total Protein 4.5 g/dL (6.0-8.3)
[2017-10-13 04:24] LABS: BUN/Creatinine Ratio 8 (6-26)
[2017-10-13 04:25] LABS: Blood Urea Nitrogen 4 mg/dL (7-20)
[2017-10-13] MEDS ORDERED: Potassium Chloride 40 MEQ, Lidocaine 1% 2 ML in D5% in Water 500 ML IVPB ONE (07:46)
[2017-10-13] MEDS: Magic Mouthwash 10 ML UD Cup PO SCH ×3 (08:50→17:37)
[2017-10-13] MEDS: 0.9 % Sodium Chloride w KCl 20 MEQ/1,000 ML MLS IVC SCH (08:50)
[2017-10-13] MEDS: Lactobacillus 1 EACH CAP.SPRINK PO SCH (08:50)
[2017-10-13] MEDS: valACYclovir 500 MG TABLET PO SCH (08:50)
[2017-10-13] MEDS ORDERED: hydroCHLOROthiazide 25 MG TABLET PO SCH (09:00)
--- NOTE | 2017-10-13 10:18 | Cardiology Consult Note ---
<Christy Berman Octavio - Last Filed: 10/13/17 10:37> Date of Encounter: 10/13/17 Time of Encounter: 09:20 Assessment and Plan (1) NSTEMI (non-ST elevated myocardial infarction) Current Visit: Yes Status: Acute Peak troponin 1.64 with downward trend. NSTEMI type I vs. type II (demand ischemia), ACS cannot be ruled out. Patient denies chest pain or discomfort. Borderline inferior ECG changes noted. Hx of lung cancer with mets to brain. Recommend conservative approach---patient is agreeable and elects to proceed with medical management for now. Continue heparin gtt for 48 hours. Start aspirin. Ideally consider betablocker by discharge if able. No statin due to possible hepatic mets. Echocardiogram pending. Patient is not a candidate for cardiac rehab. (2) Metastatic cancer to brain Current Visit: Yes Status: Chronic Primary service. Oncology following. (3) Electrolyte abnormality Current Visit: Yes Status: Acute Hypokalemia and hypomagnesemia upon admission. Potassium replaced, will order mag rider x2. Re-check labs later this afternoon and replace accordingly. Discussion w patient/family: The assessment and plan as outlined above was discussed with the patient and/or family members who expressed understanding and agreement. All questions were answered. Thank you for involving us in the care of your patient. Please call with any questions. The patient will be discussed and reviewed with Dr. Decker; changes to be made accordingly. History of Present Illness Consult date: 10/13/17 Requesting physician: Carson Back Consult reason: Elevated troponin Chief complaint: Fatigue, weakness History of present illness: Ms. Liao is a 57 year old female with PMHx significant for lung cancer with mets to brain who presented to the ED with malaise and fatigue. Recently discharged on 10/09/17 (UTI); family reports had radiation (8 of 10) on Friday and was extremely tired and fatigued all weekend and "did not get out of bed." Of note, underwent right-sided thoracentesis last admission for pleural effusion. Patient is somewhat confused at bedside, however is able to answer simple questions. She denies chest pain or discomfort, shortness of breath, or swelling. Denies cough or flu-like symptoms. Cardiology consulted today for elevated troponin--peak 1.64. Prior CV testing includes: TTE 11/13/15: LVEF 60%, mild LVDD, normal wall motion, no significant valvular dysfunction. Past Med Surg Social Fam HX - Past Medical History Attestation: Yes The following information was validated with the patient. Source: patient, obtained from family Medical history: cancer (Lung w/metastasis to brain), thyroid disease, other Psychiatric history: no psych history - Social History Smoking Status: Never smoker Smokeless Tobacco Status: No Alcohol use: none Drug use: none - Family History Father Race: Family Member Ethnicity: Non- Living Status: Still Living Hx Family Endocrine Disorder: Yes (DM) Mother Race: Family Member Ethnicity: Non- Living Status: Age at : 79 Cause of : [place] Hx Family Cardiac Disorders: Yes ([place]) Brother Race: Family Member Ethnicity: Non- Living Status: Still Living Hx Family Medical Disorders: No Sister Race: Family Member Ethnicity: Non- Living Status: Still Living Hx Family Cardiac Disorders: Yes (HTN, HLD) Medications and Allergies Levothyroxine [Synthroid] 100 mcg PO DAILY #90 tablet 03/21/17 [Rx] Potassium Chloride [K-Tab ER] 40 meq PO BID #180 tablet.er 03/21/17 [Rx] Valacyclovir HCl [Valtrex] 1,000 mg PO DAILY #30 tab 07/25/17 [Rx] predniSONE [Prednisone] 5 mg PO HS 07/25/17 [History] Furosemide [Lasix] 20 mg PO DAILY #30 tablet 10/09/17 [Rx] Docusate Sodium [Dok] 100 mg PO DAILY PRN 10/12/17 [History] LORazepam [Ativan] 1 mg PO DAILY PRN 10/12/17 [History] Loperamide [Imodium] 2 mg PO QID PRN 10/12/17 [History] Minocycline [Minocin] 100 mg PO DAILY 10/12/17 [History] hydroCHLOROthiazide [Hydrochlorothiazide] 25 mg PO DAILY 10/12/17 [History] 3 Allergy/AdvReac Type Severity Reaction Status Date / Time ferrous sulfate Allergy Unknown Unknown Verified 10/12/17 16:51 Sulfa (Sulfonamide Allergy Unknown Unknown Verified 10/12/17 16:51 Antibiotics) All Systems Review: A 10-system review of systems was performed and is negative for pertinent findings except as documented above in the HPI. - Cardiovascular Cardiovascular: as per HPI Physical Examination Vital Signs, Last 4 Hours Temp Pulse Resp BP Pulse Ox 10/13/17 06:28 98 F 109 16 103/69 99 General: Other (appears chronically ill) HEENT: Atraumatic, Normocephaly Cardiac: Reg Rate and Rhythm (tachycardiac), Normal S1 and S2 Lungs: Normal Breath Sounds Neuro: Other (drowsy) Abdomen: Soft Skin: Other (non-healing wound LLE) Extremities: No Edema, Normal Pulses Results 10/13/17 03:06 10/13/17 03:06 Lab Results 10/12/17 10/13/17 10/13/17 20:45 03:06 03:06 WBC 12.1 H Hgb 10.1 L D Hct 31.2 L Plt Count 100 L INR APTT Sodium Potassium Chloride Carbon Dioxide BUN Creatinine Glucose Calcium Magnesium Total Bilirubin AST ALT Alkaline Phosphatase Troponin I 1.23 H* 1.19 H* 10/13/17 10/13/17 03:06 03:06 WBC Hgb Hct Plt Count INR 1.6 APTT 35.4 Sodium 132 L Potassium 2.7 L Chloride 106 Carbon Dioxide 16 L BUN 4 L Creatinine 0.50 L Glucose 106 H Calcium 6.7 L D Magnesium 1.1 L Total Bilirubin 1.9 H AST 44 H ALT 57 H Alkaline Phosphatase 385 H Troponin I Active Medications Acetaminophen (Tylenol) 650 mg PO Q6HR PRN PRN Reason: Mild Pain (1-3) Stop: 04/13/18 18:06 Hydrocodone Bitart/Acetaminophen ([place] 5-325 Mg) 1 tab PO Q4HR PRN PRN Reason: Moderate Pain (4-6) Stop: 04/13/18 18:06 Docusate Sodium (Colace) 100 mg PO DAILY PRN; Protocol PRN Reason: Constipation Stop: 04/13/18 18:20 Piperacillin Sod/Tazobactam Sod (Zosyn Premix 3.375 Gm/200 Ml) 3.375 gm in 200 mls @ 50 mls/hr IVPB Q8H [facility] Stop: 04/13/18 20:01 Last Admin: 10/13/17 03:19 Dose: 50 mls/hr Vancomycin HCl 1,250 mg/ (Dextrose) 250 mls @ 166.67 mls/hr IVPB Q12H [facility] Stop: 04/13/18 20:01 Last Admin: 10/12/17 20:38 Dose: 166.67 mls/hr Potassium Chloride/Sodium Chloride (Kcl 20 Meq In 0.9% Sodium Chloride) 20 meq in 1,000 mls @ 75 mls/hr IVC .[id number] [facility] Stop: 04/14/18 07:46 Last Admin: 10/13/17 08:50 Dose: 75 mls/hr Potassium Chloride 40 meq/ (Lidocaine 2 ml/ Dextrose) 522 mls @ 130.5 mls/hr IVPB ONCE ONE Stop: 10/13/17 11:45 Magnesium Sulfate (Magnesium Sulfate Premix 2gm/50ml) 2 gm in 50 mls @ 24.038 mls/hr IVPB ONCE ONE Stop: 10/13/17 11:49 Lactobacillus Acidophilus/Rhamnosus (Culturelle) 2 each PO DAILY [facility] Stop: 04/14/18 09:01 Last Admin: 10/13/17 08:50 Dose: 2 each Levothyroxine Sodium (Synthroid) 100 mcg PO 0630 [facility] Stop: 04/14/18 06:31 Last Admin: 10/13/17 05:34 Dose: 100 mcg Loperamide HCl (Imodium) 2 mg PO QID PRN PRN Reason: LOOSE BOWEL Stop: 04/13/18 18:20 Lorazepam (Ativan) 1 mg PO DAILY PRN PRN Reason: Anxiety Stop: 04/13/18 18:20 Morphine Sulfate (Morphine Sulfate) 2 mg IVP Q4HR PRN PRN Reason: Severe Pain (7-10) Stop: 04/13/18 18:06 Last Admin: 10/13/17 03:18 Dose: 2 mg Multi-Ingredient Mouthwash/Gargle (Magic Mouthwash) 10 ml PO TIDAC [facility] Stop: 04/13/18 18:31 Last Admin: 10/13/17 08:50 Dose: 10 ml Naloxone HCl (Narcan) 0.4 mg IVP Q2MIN PRN PRN Reason: Opioid Reversal Stop: 04/13/18 18:06 Ondansetron HCl (Zofran) 4 mg IVP Q8HR PRN PRN Reason: Nausea And Vomiting Stop: 04/13/18 18:06 Potassium Chloride (Potassium Chloride) 40 meq PO BID [facility] Stop: 04/13/18 21:01 Last Admin: 10/13/17 08:50 Dose: 40 meq Prednisone (Prednisone) 5 mg PO HS [facility] Stop: 04/13/18 21:01 Last Admin: 10/12/17 20:37 Dose: 5 mg Valacyclovir HCl (Valtrex) 1,000 mg PO DAILY [facility] Stop: 04/14/18 09:01 Last Admin: 10/13/17 08:50 Dose: 1,000 mg - Imaging and Cardiology Echo: pending, report reviewed Other Results: 12 hour tele: avg [id number] ST. - EKG Interpretation EKG results cardiology: personally reviewed Consult Discharge Plan - Plan Referrals: Rik Cisneros, [Primary Care Provider] - <Cathy Decker - Last Filed: 10/13/17 13:10> Date of Encounter: 10/13/17 - Attending Attestation I have personally performed a face to face evaluation on this patient. I have reviewed and agree with the care plan, history and exam with STOCK BLENDER. Ms. Liao presented with general malaise in setting of lung cancer that has metastasized. Incidentally discovered was elevated troponin of 1.64. ECG demonstrates borderline changes inferiorly. Awaiting echo. Agree with start of aspirin - close watch on platelet count. Ideally would add BB before discharge if BP allows. Recommend against statin given possible hepatic mets. 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 The patient is somnolent during the visit. The family is present at bedside. They expressed understanding and agreement with the plan. Assessment and Plan Discussion w patient/family: The assessment and plan as outlined above was discussed with the patient and/or family members who expressed understanding and agreement. All questions were answered. Thank you for involving us in the care of your patient. Please call with any questions. History of Present Illness History of present illness: Ms. Liao is a 57 year old female All Systems Review: A 10-system review of systems was performed and is negative for pertinent findings except as documented above in the HPI. Physical Examination Vital Signs, Last 4 Hours Temp Pulse Resp BP Pulse Ox 10/13/17 10:43 97.8 F 113 16 110/80 98 Results 10/13/17 03:06 10/13/17 03:06 Lab Results 10/12/17 10/13/17 10/13/17 20:45 03:06 03:06 WBC 12.1 H Hgb 10.1 L D Hct 31.2 L Plt Count 100 L INR APTT Sodium Potassium Chloride Carbon Dioxide BUN Creatinine Glucose Calcium Magnesium Total Bilirubin AST ALT Alkaline Phosphatase Troponin I 1.23 H* 1.19 H* 10/13/17 10/13/17 03:06 03:06 WBC Hgb Hct Plt Count INR 1.6 APTT 35.4 Sodium 132 L Potassium 2.7 L Chloride 106 Carbon Dioxide 16 L BUN 4 L Creatinine 0.50 L Glucose 106 H Calcium 6.7 L D Magnesium 1.1 L Total Bilirubin 1.9 H AST 44 H ALT 57 H Alkaline Phosphatase 385 H Troponin I
[2017-10-13] MEDS: Vancomycin 1,250 MG in D5% in Water 250 ML IVPB SCH (13:05)
[2017-10-13] MEDS: Megestrol Acetate 400 MG/10 ML UDC PO SCH (13:05)
[2017-10-13] MEDS: Aspirin Enteric Coated 81 MG Tablet PO SCH (13:05)
[2017-10-13] MEDS ORDERED: Chloraseptic Spray 177 ML BOTTLE MM PRN (13:18)
[2017-10-13] MEDS ORDERED: Calcium Gluconate 2,000 MG in D5% in Water 100 ML IVPB ONE (13:19)
--- NOTE | 2017-10-13 14:49 | Event Note ---
Date of Encounter: 10/13/17 Time of Encounter: 14:40 - Cardiology Event Note Reviewed TTE results with patient and family. EF preserved with normal wall motion. Given poor clinical status/functional capacity, and CA with brain mets; recommend conservative medical management. Patient/family agree. Continue asa--monitor CBC closely. No statin due to liver mets. Start low dose betablocker if able by discharge. No further recommendations from Cardiology standpoint. Cardiology will sign- off. Patient was discussed and reviewed with Dr. Decker who agrees with plan as stated above. Echocardiogram 10/13/17 18:26 Impressions: LVEF 70%. Normal LV chamber size, wall thickness and function. Mild left ventricular diastolic dysfunction. Normal right ventricular structure and function. Unable to estimate RVSP due to lack of TR jet. No significant valvular dysfunction. Left Ventricular Wall Motion: Rest Echo Findings All wall segments showed normal motion.
--- NOTE | 2017-10-13 16:55 | Internal Med Progress Note ---
Date of Encounter: 10/13/17 Time of Encounter: 09:50 - Assessment and plan (1) Sepsis Current Visit: Yes Status: Acute Assessment and plan: Acid normal. WBC count is coming down. I do not believe patient has a new infection but rather has now completed treatment for urinary tract infection and sepsis from prior hospitalization. We will place her back on oral medications that she was discharged on but had not resumed. We will continue to monitor WBC count. Qualifiers: Sepsis type: sepsis due to unspecified organism Qualified Code(s): A41.9 - Sepsis, unspecified organism (2) Elevated troponin Current Visit: Yes Status: Acute Assessment and plan: Troponin 1.19 today. Trending down. Patient does not have any chest pain. Likely due to demand ischemia given the patient's tachycardia. Cardiology consulted. 2-D echo ordered. Will follow recommendations. (3) DVT prophylaxis Current Visit: Yes Status: Acute Assessment and plan: With SCDs alone. Not giving heparin due to low platelets today and history of brain metastases for which she is receiving radiation treatment. (4) Hypokalemia Current Visit: Yes Status: Acute Assessment and plan: Patient remains hypokalemic. We will replete intravenously and orally. Also replace calcium and magnesium (5) Lung cancer, primary, with metastasis from lung to other site Current Visit: Yes Status: Chronic Assessment and plan: Follow-up outpatient with oncology for further treatment. Patient was scheduled to receive radiation treatment today Qualifiers: Laterality: unspecified laterality Qualified Code(s): C34.90 - Malignant neoplasm of unspecified part of unspecified bronchus or lung (6) Sinus tachycardia Current Visit: Yes Status: Acute Assessment and plan: Patient appears to have been chronically tachycardic even during her last hospitalization. Will follow cardiology recommendations. (7) Urinary tract infection Current Visit: Yes Status: Suspected Assessment and plan: Continue Omnicef and doxycycline per discharge recommendations during last hospitalization. Urine culture was negative at that time. Qualifiers: Urinary tract infection type: acute cystitis Hematuria presence: without hematuria Qualified Code(s): N30.00 - Acute cystitis without hematuria (8) Weakness Current Visit: Yes Status: Acute Assessment and plan: PTOT consult. We will await recommendations - Subjective Interval history: Patient is awake and alert. Feels much better today. Shortness of breath has improved. Feels much better compared to yesterday. Denies any chest pain. No cough. No fever or chills overnight. - Constitutional Vitals: Temp Pulse Resp BP Pulse Ox 97.9 F 118 16 109/75 97 10/13/17 15:21 10/13/17 15:21 10/13/17 15:21 10/13/17 15:21 10/13/17 15:21 General appearance: Present: cooperative, A&O X 3, pleasant, no acute distress, answers questions appropriately - Eye Eye exam: Present: EOMI, PERRL, conjuntiva pink, sclera anicteric - Respiratory Respiratory exam: Present: CTAB. Absent: accessory muscle use, rales, rhonchi, wheezes - Cardiovascular Cardiovascular exam: Present: RRR, +S1, +S2, tachycardia. Absent: diastolic murmur, gallop, rubs, systolic murmur - GI/Abdominal GI/Abdominal exam: Present: normal bowel sounds, soft, no peritoneal signs. Absent: distended, tenderness - Extremities Exam Extremities exam: Present: warm, radial pulses palpable and symmetrical. Absent : calf tenderness, cyanotic, pedal edema - Neurological Exam Neurological exam: Present: alert, CN II-XII intact, oriented X3, no focal deficits. Absent: facial droop, speech deficit - Skin Skin exam: Present: dry, intact Internal Medicine: Result - Labs CBC & Chem 7: 10/13/17 03:06 10/13/17 03:06 Labs: Short CBC 10/13/17 Range/Units 03:06 WBC 12.1 H (4.3-11.1) K/mcL Hgb 10.1 L D (11.5-15.4) g/dL Hct 31.2 L (35.3-44.9) % Plt Count 100 L (140-400) K/mcL Neutrophils # 10.5 H (1.6-8.9) K/mcL BMP 10/13/17 03:06 Sodium 132 L Potassium 2.7 L Chloride 106 Carbon Dioxide 16 L BUN 4 L Creatinine 0.50 L Glucose 106 H Calcium 6.7 L D Cardiac Enzymes 10/12/17 10/13/17 Range/Units 20:45 03:06 Troponin I 1.23 H* 1.19 H* (0-0.03) ng/mL Liver Function 10/13/17 Range/Units 03:06 Total Bilirubin 1.9 H (0.2-1.2) mg/dL AST 44 H (5-34) Units/L ALT 57 H (0-55) Units/L Alkaline Phosphatase 385 H (38-126) Units/L Albumin 1.5 L D (3.5-5.0) g/dL - ABG Interpretation ABG results: PT/INR, D-dimer PT 17.7 Seconds (9.4-12.1) H 10/13/17 03:06 - Impressions Impressions Echocardiogram 10/13/17 18:26 Impressions: LVEF 70%. Normal LV chamber size, wall thickness and function. Mild left ventricular diastolic dysfunction. Normal right ventricular structure and function. Unable to estimate RVSP due to lack of TR jet. No significant valvular dysfunction. Left Ventricular Wall Motion: Rest Echo Findings All wall segments showed normal motion. Findings: Study Quality * Technically adequate exam. ECG Findings * Sinus tachycardia. Left Ventricle * LVEF 70%. * Normal LV chamber size, wall thickness and function. * Mild left ventricular diastolic dysfunction. Right Ventricle * Normal right ventricular structure and function. Left Atrium * Mildly dilated left atrium. Right Atrium * Normal right atrial size. Interatrial Septum * Interatrial septum not well evaluated. Aortic Valve * Aortic valve not well visualized. * No aortic regurgitation. * No aortic stenosis. Mitral Valve * Normal mitral valve structure and function. * No mitral stenosis. * No mitral regurgitation. Tricuspid Valve * Normal tricuspid valve structure and function. * No tricuspid regurgitation. * Unable to estimate RVSP due to lack of TR jet. Pulmonic Valve * Pulmonic valve not well visualized. * No pulmonic regurgitation. Aorta * Normally sized aortic root. Pericardium * The pericardium appears normal. IVC * Normal IVC dimensions and inspiratory collapse. Pulmonary Artery * Normal visualized portions of the main pulmonary artery. Consult Discharge Plan - Plan Referrals: Rik Cisneros DO [Primary Care Provider] -
--- NOTE | 2017-10-13 17:01 | Oncology Inp Consult Note ---
Date of Encounter: 10/13/17 Time of Encounter: 17:00 Assessment and Plan (1) Lung cancer, primary, with metastasis from lung to other site Status: Chronic Assessment and plan: Aggressive metastatic lung cancer. Patient appears to be recovering from a recent UTI as well as possible adrenal insufficiency as she stopped taking her prednisone at home. Urinalysis is a contaminated specimen and it is unclear if she has early urinary tract infection. She appears to be clinically improving with supportive measures including antibiotics and fluids. If her clinical condition is stable or improved tomorrow, recommend continuing with radiation therapy. She has 2 treatments remaining. Given her overall decline, I discussed with some the family that we remain available to proceed with other therapy. We will have to let her recover from her radiation therapy prior to making further determination. The family voiced understanding. I have increased her prednisone to 5 mg twice a day. She appears to be stable. If she decompensates, I would administer stress dose steroids. Qualifiers: Laterality: left Qualified Code(s): C34.92 - Malignant neoplasm of unspecified part of left bronchus or lung - Data of Consult Requesting Physician: David Wall MD Primary Care Provider: Rik Montenegro Colopy - Consult Narrative Reason for consult: You, lung cancer History of present illness: Ms. Liao is a 57 year old female who is well-known to me and carries a diagnosis of metastatic left lung adenocarcinoma. Her cancer was initially diagnosed 2012 and she has done well for the past 4-1/2 years. Please see my last note dated September 26, 2017 for treatment history. 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 Therapeutic strategies are few at this juncture. 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 She is completed 8 of 10 radiation treatments. Patient was hospitalized last Friday through with a UTI. She is managed appropriately but over the course of the weekend became more lethargic, stop taking her medications including her Synthroid and chronic prednisone and became confused and lethargic. She presented to the emergency room overnight and has been admitted. With broad-spectrum antibiotics and fluids, mentation markedly improved per her family. She still very fatigued. She is responding to questions slowly but appropriately. This is a change from baseline. At her last visit, she underwent CT imaging of the chest and abdomen 2016. This did reveal progressive disease in the left lung as well as in the liver. She also underwent thoracentesis October 09 with 300 mL fluid drained. She currently denies any shortness of breath or orthopnea. She was found to have elevated troponins. Echocardiogram revealed preserved ejection fraction. Cardiology recommended conservative medical management given her other medical comorbidities. Past Med Surg Social Fam HX - Past Medical History Medical history: cancer (Lung w/metastasis to brain), thyroid disease, other Psychiatric history: no psych history - Social History Smoking Status: Never smoker Smokeless Tobacco Status: No Alcohol use: none Drug use: none - Family History Father Race: Family Member Ethnicity: Non- Living Status: Still Living Hx Family Endocrine Disorder: Yes (DM) Mother Race: Family Member Ethnicity: Non- Living Status: Age at : 79 Cause of : SC Hx Family Cardiac Disorders: Yes (SC) Brother Race: Family Member Ethnicity: Non- Living Status: Still Living Hx Family Medical Disorders: No Sister Race: Family Member Ethnicity: Non- Living Status: Still Living Hx Family Cardiac Disorders: Yes (HTN, HLD) Medications and Allergies Levothyroxine [Synthroid] 100 mcg PO DAILY #90 tablet 03/21/17 [Rx] Potassium Chloride [K-Tab ER] 40 meq PO BID #180 tablet.er 03/21/17 [Rx] Valacyclovir HCl [Valtrex] 1,000 mg PO DAILY #30 tab 07/25/17 [Rx] predniSONE [Prednisone] 5 mg PO HS 07/25/17 [History] Furosemide [Lasix] 20 mg PO DAILY #30 tablet 10/09/17 [Rx] Docusate Sodium [Dok] 100 mg PO DAILY PRN 10/12/17 [History] LORazepam [Ativan] 1 mg PO DAILY PRN 10/12/17 [History] Loperamide [Imodium] 2 mg PO QID PRN 10/12/17 [History] Minocycline [Minocin] 100 mg PO DAILY 10/12/17 [History] hydroCHLOROthiazide [Hydrochlorothiazide] 25 mg PO DAILY 10/12/17 [History] 3 Allergy/AdvReac Type Severity Reaction Status Date / Time ferrous sulfate Allergy Unknown Unknown Verified 10/12/17 16:51 Sulfa (Sulfonamide Allergy Unknown Unknown Verified 10/12/17 16:51 Antibiotics) All systems: reviewed and no additional remarkable complaints except as stated Constitutional: Present: daytime sleepiness, fatigue, lethargy, malaise, weakness Eyes: Present: as per HPI Ears: Present: as per HPI Nose, mouth and throat: Present: as per HPI Cardiovascular: Present: dyspnea on exertion, orthopnea Respiratory: Present: dyspnea on exertion Genitourinary: Present: as per HPI Musculoskeletal: Present: muscle weakness, numbness Neurological: Present: abnormal gait, abnormal speech, dizziness, lack of coordination Oncology - Exam - Constitutional Vitals: Temp Pulse Resp BP Pulse Ox 97.9 F 118 16 109/75 97 10/13/17 15:21 10/13/17 15:21 10/13/17 15:21 10/13/17 15:21 10/13/17 15:21 General appearance: cooperative, no acute distress - Head Head exam: Present: atraumatic, normal inspection, normocephalic - Eye Eye exam: Present: normal appearance, conjuntiva pink, sclera anicteric - ENT ENT exam: Present: mucous membranes moist, normal exam - Neck Neck exam: Present: full ROM, normal inspection - Respiratory Respiratory exam: Present: decreased breath sounds - Cardiovascular Cardiovascular exam: Present: tachycardia - GI/Abdominal GI/Abdominal exam: Present: normal bowel sounds, soft - Extremities Exam Extremities exam: Present: normal inspection - Neurological Exam Neurological exam: Present: alert, CN II-XII intact, oriented X3, no focal deficits - Skin Skin exam: Present: dry, normal color Oncology - Results Labs: Short CBC 10/13/17 Range/Units 03:06 WBC 12.1 H (4.3-11.1) K/mcL Hgb 10.1 L D (11.5-15.4) g/dL Hct 31.2 L (35.3-44.9) % Plt Count 100 L (140-400) K/mcL Neutrophils # 10.5 H (1.6-8.9) K/mcL BMP 10/13/17 03:06 Sodium 132 L Potassium 2.7 L Chloride 106 Carbon Dioxide 16 L BUN 4 L Creatinine 0.50 L Glucose 106 H Calcium 6.7 L D Cardiac Enzymes 10/12/17 10/13/17 Range/Units 20:45 03:06 Troponin I 1.23 H* 1.19 H* (0-0.03) ng/mL Liver Function 10/13/17 Range/Units 03:06 Total Bilirubin 1.9 H (0.2-1.2) mg/dL AST 44 H (5-34) Units/L ALT 57 H (0-55) Units/L Alkaline Phosphatase 385 H (38-126) Units/L Albumin 1.5 L D (3.5-5.0) g/dL CT OF THE HEAD WITHOUT CONTRAST 10/12/2017 3:10 pm HISTORY: ORDERING SYSTEM PROVIDED HISTORY: hx of brain tumor more confused FINDINGS: BRAIN/VENTRICLES: Generalized cerebral atrophy. Focal calcification is demonstrated within the left frontal parietal region. There is mild hypodensity posterior and lateral to the calcification as seen on images 29 through 37 which has developed as compared to the prior examination. Mild periventricular white matter hypodensity is again demonstrated. No evidence of hydrocephalus. No mass effect or midline shift. No gross acute hemorrhage. Well-defined hypodensities are demonstrated at bilateral cerebellar hemispheres which were not evident on prior. Increasing white matter hypodensity is seen within the left frontal region on image 39 through 41. ORBITS: The visualized portion of the orbits demonstrate no acute abnormality. SINUSES: Mild patchy opacification of ethmoid air cells. Sinuses as a whole are aerated. SOFT TISSUES/SKULL: Thickening of the clivus again noted. IMPRESSION: Atrophy and small vessel ischemic disease. New focal hypodensities within the left frontal parietal region can be related to post treatment related change or ischemia in the appropriate clinical setting. Well-defined hypodensities at bilateral cerebellar hemispheres are suggestive of encephalomalacia or prior infarct. MR may be helpful for further characterization. CTA OF THE CHEST 10/08/2017 12:48 pm FINDINGS: Pulmonary Arteries: The central pulmonary arteries are normal in caliber. Pulmonary arteries are well opacified to the subsegmental levels. No emboli are identified. Mediastinum: There is no mediastinal adenopathy. Right infraclavicular infusion port terminates over the distal superior vena cava. Lungs/pleura: The dominant pulmonary mass, in the left lower lobe, is increased, measuring 3.3 x 2.1 cm (previously 1.6 x 2.6 cm). Left hilar mass has progressed, 3.0 x 5.3 cm (previously 2.6 x 3.3 cm). There are additional subcentimeter bilateral pulmonary nodules with progression. For instance a right upper lobe nodule is 8 mm (previously 5 mm) and a left upper lobe is 4.4 mm nodule (previously 2.5 mm). There are small bilateral pleural effusions, larger on the right. Mild passive atelectasis in the lung bases as well. Upper Abdomen: There are multiple hepatic masses with peripheral enhancement. There is a mass centered in the caudate with adjacent low-attenuation, secondary to more extensive fatty infiltration versus increase in size of the mass. Otherwise, the number and size of hepatic masses is increased. For instance a lesion in the anterior liver dome is 2.2 cm (previously 1.6 cm). Soft Tissues/Bones: Sclerotic focus in the right T11 pedicle is unchanged. IMPRESSION: No pulmonary embolus. Progression in dominant masses in the left lower lobe and hilum. Progression and size of subcentimeter pulmonary nodules bilaterally. Small bilateral pleural effusions, new on the right and increased on the left in the interval. Progressive hepatic metastases. Stable sclerotic lesion of T11. Consult Discharge Plan - Plan Referrals: Rik Cisneros DO [Primary Care Provider] -
[2017-10-13] MEDS: levoFLOXacin 750 MG TABLET PO SCH (17:37)
[2017-10-13] MEDS: Cefdinir 300 MG CAPSULE PO SCH (21:33)
[2017-10-13] MEDS: predniSONE 5 MG TABLET PO SCH (21:33)
[2017-10-14 04:12] LABS: Basophils % 0.2 %; Segmented Neutrophils % 86.9 %
[2017-10-14 04:14] LABS: Eosinophils # 0.1 K/mcL (0.0-0.6); Eosinophils % 1.1 %; Hematocrit 29.5 % (35.3-44.9); Hemoglobin 9.4 g/dL (11.5-15.4); Immature Granulocytes % 2.4 % (0-4); Immature Platelets 10.3 % (1.1-6.1); Lymphocytes # 0.4 K/mcL (0.6-4.6); Mean Corpuscular HGB Conc 31.9 g/dL (31.6-35.5); Mean Corpuscular Hemoglobin 29.4 pg (28.0-33.3); Mean Corpuscular Volume 92.2 fL (83.0-100.0); Mean Platelet Volume 12.2 fL (9.4-12.4); Monocytes # 0.5 K/mcL (0.0-1.3); Monocytes % 5.4 %; Red Cell Distribution Width 17.4 % (11.5-14.5)
[2017-10-14] MEDS: 0.9 % Sodium Chloride w KCl 20 MEQ/1,000 ML MLS IVC SCH ×2 (04:16→22:04)
[2017-10-14 04:19] LABS: Neutrophils # 8.3 K/mcL (1.6-8.9); Platelet Count 86 K/mcL (140-400)
[2017-10-14 04:23] LABS: Alanine Aminotransferase 42 Units/L (0-55); Albumin 1.4 g/dL (3.5-5.0); Albumin/Globulin Ratio 0.5 (1.1-2.2); Alkaline Phosphatase 420 Units/L (38-126); Aspartate Amino Transferase 38 Units/L (5-34); BUN/Creatinine Ratio 8 (6-26); Bilirubin,Total 1.3 mg/dL (0.2-1.2); Blood Urea Nitrogen 4 mg/dL (7-20); Calcium 7.1 mg/dL (8.6-10.8); Carbon Dioxide 19 mEq/L (19-29); Chloride 105 mEq/L (98-109); Globulin 3.1 g/dL (2.4-3.5); Glucose 126 mg/dL (70-99); Osmolality,Calculated 272 (280-300); Potassium 3.4 mEq/L (3.5-4.5); Sodium 132 mEq/L (136-145); Total Protein 4.5 g/dL (6.0-8.3); eGFR For African Americans > 60 (> 60); eGFR For Non-African Americans > 60 (> 60)
[2017-10-14] MEDS: levoFLOXacin 750 MG TABLET PO SCH (08:38)
[2017-10-14] MEDS: Lactobacillus 1 EACH CAP.SPRINK PO SCH (08:38)
[2017-10-14] MEDS: predniSONE 5 MG TABLET PO SCH ×2 (08:39→21:57)
[2017-10-14] MEDS: Cefdinir 300 MG CAPSULE PO SCH ×2 (08:39→21:57)
[2017-10-14] MEDS: valACYclovir 500 MG TABLET PO SCH (08:40)
[2017-10-14] MEDS: Aspirin Enteric Coated 81 MG Tablet PO SCH (08:40)
[2017-10-14] MEDS: Megestrol Acetate 400 MG/10 ML UDC PO SCH (08:40)
[2017-10-14] MEDS: Magic Mouthwash 10 ML UD Cup PO SCH ×3 (08:41→16:19)
--- NOTE | 2017-10-14 09:04 | Oncology Inp Progress Note ---
Date of Encounter: 10/14/17 Time of Encounter: 07:45 (1) Lung cancer, primary, with metastasis from lung to other site Current Visit: Yes Status: Chronic Assessment and plan: Aggressive metastatic lung cancer. Patient appears to be recovering from a recent UTI as well as possible adrenal insufficiency as she stopped taking her prednisone at home. Urinalysis is a contaminated specimen and it is unclear if she has early urinary tract infection. She appears to be clinically improving with supportive measures including antibiotics and fluids. She appears to recovering uneventfully, and I would consider proceeding XRT today and tomorrow to expedite her care. D/W nursing to encourage ambulation. Further treatment decisions regarding systemic disease to be discussed after d/ c. Likely to consider hospice, but would prefer for her to get through the holidays prior to finalizing this decision. This may change if she decompensates again. Continue prednisone to 5 mg twice a day. Qualifiers: Laterality: left Qualified Code(s): C34.92 - Malignant neoplasm of unspecified part of left bronchus or lung Oncology: Subj Interval history: Feeling better this morning. Did not sleep well overnight, however. Denies any pain currently. No SOB or orthopnea. No fever, or chills. Thinking clearly. Has a rahman, and she has not been ambulatory - Constitutional Vitals: Vital Signs Temp Pulse Resp BP Pulse Ox 10/14/17 06:38 97.6 F 95 16 108/75 99 10/14/17 05:00 99 F 103 18 111/75 98 10/13/17 19:00 98 F 117 16 113/77 99 10/13/17 15:21 97.9 F 118 16 109/75 97 10/13/17 10:43 97.8 F 113 16 110/80 98 Intake and Output 10/14/17 10/14/17 10/14/17 00:59 08:59 16:59 Intake Total 1000 / 1000 120 / 120 Output Total 1250 / 1250 600 / 600 Balance -250 / -250 -480 / -480 Intake: IV Fluids 1000 / 1000 KCl 20 mEq in 0.9% Sodium 1000 / 1000 Chloride 20 meq In 1,000 ml @ 75 mls/hr IVC .[id number] [facility] Rx#: [id number] Oral 120 / 120 Output: Catheter 1250 / 1250 600 / 600 Other: Weight 66.9 kg Patient Weight 10/15/17 00:59 Weight 66.9 kg - Head Head exam: Present: atraumatic, normal inspection, normocephalic - Eye Eye exam: Present: normal appearance, conjuntiva pink, sclera anicteric - ENT ENT exam: Present: mucous membranes moist, normal exam, normal oropharynx - Neck Neck exam: Present: full ROM, normal inspection - Respiratory Respiratory exam: Present: decreased breath sounds - Cardiovascular Cardiovascular exam: Present: RRR - GI/Abdominal GI/Abdominal exam: Present: normal bowel sounds, soft - Extremities Exam Extremities exam: Present: normal inspection - Neurological Exam Neurological exam: Present: alert, CN II-XII intact, no focal deficits Oncology: Obj Data - Labs CBC & Chem 7: 10/14/17 04:00 10/14/17 04:00 Labs: Laboratory Results - last 24 hr 10/14/17 10/14/17 04:00 04:00 WBC 9.6 RBC 3.20 L Hgb 9.4 L Hct 29.5 L MCV 92.2 MCH 29.4 MCHC 31.9 RDW 17.4 H Plt Count 86 L MPV 12.2 Immature Gran % 2.4 Seg Neutrophils % 86.9 Lymphocytes % 4.0 Monocytes % 5.4 Eosinophils % 1.1 Basophils % 0.2 Neutrophils # 8.3 Lymphocytes # 0.4 L Monocytes # 0.5 Eosinophils # 0.1 Basophils # 0.0 Immature Plt Fraction 10.3 H Sodium 132 L Potassium 3.4 L Chloride 105 Carbon Dioxide 19 BUN 4 L Creatinine 0.53 L Est GFR ( Amer) > 60 Est GFR (Non-Af Amer) > 60 BUN/Creatinine Ratio 8 Glucose 126 H Calculated Osmolality 272 L Calcium 7.1 L Total Bilirubin 1.3 H AST 38 H ALT 42 Alkaline Phosphatase 420 H Serum Total Protein 4.5 L Albumin 1.4 L Globulin 3.1 Albumin/Globulin Ratio 0.5 L - Impressions Impressions Echocardiogram 10/13/17 18:26 Impressions: LVEF 70%. Normal LV chamber size, wall thickness and function. Mild left ventricular diastolic dysfunction. Normal right ventricular structure and function. Unable to estimate RVSP due to lack of TR jet. No significant valvular dysfunction. Left Ventricular Wall Motion: Rest Echo Findings All wall segments showed normal motion. Findings: Study Quality * Technically adequate exam. ECG Findings * Sinus tachycardia. Left Ventricle * LVEF 70%. * Normal LV chamber size, wall thickness and function. * Mild left ventricular diastolic dysfunction. Right Ventricle * Normal right ventricular structure and function. Left Atrium * Mildly dilated left atrium. Right Atrium * Normal right atrial size. Interatrial Septum * Interatrial septum not well evaluated. Aortic Valve * Aortic valve not well visualized. * No aortic regurgitation. * No aortic stenosis. Mitral Valve * Normal mitral valve structure and function. * No mitral stenosis. * No mitral regurgitation. Tricuspid Valve * Normal tricuspid valve structure and function. * No tricuspid regurgitation. * Unable to estimate RVSP due to lack of TR jet. Pulmonic Valve * Pulmonic valve not well visualized. * No pulmonic regurgitation. Aorta * Normally sized aortic root. Pericardium * The pericardium appears normal. IVC * Normal IVC dimensions and inspiratory collapse. Pulmonary Artery * Normal visualized portions of the main pulmonary artery. - ABG Interpretation ABG results: PT/INR, D-dimer PT 17.7 Seconds (9.4-12.1) H 10/13/17 03:06 Consult Discharge Plan - Plan Referrals: Rik Cisneros DO [Primary Care Provider] -
--- NOTE | 2017-10-14 10:05 | Electrocardiograph Report ---
[address] [place] [address] Test Date: 2017-10-12 Pat Name: Radha Liao Department: 103 Room: 2NE17 Gender: F Hassock Maker: JOSE CARLOS : 1960 Requested By: Surya Wynne Order Number: [id number] Reading MD: Dylan Connelly DO Measurements Intervals [place] Rate: 128 P: 29 HI: 121 QRS: -28 QRSD: 79 T: 56 QT: 319 QTc: 395 Interpretive Statements SINUS TACHYCARDIA POSSIBLE ANTERIOR MYOCARDIAL INFARCTION, OF INDETERMINATE AGE INFERIOR MYOCARDIAL INFARCTION, OF INDETERMINATE AGE Electronically Signed On 10-14-2017 10:04:41 EST by Dylan Connelly DO
--- NOTE | 2017-10-14 10:23 | Electrocardiograph Report ---
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
--- NOTE | 2017-10-14 18:46 | Internal Med Progress Note ---
Date of Encounter: 10/14/17 Time of Encounter: 11:00 - Assessment and plan (1) Urinary tract infection Current Visit: Yes Status: Suspected Assessment and plan: Continue Omnicef and Levaquin. Qualifiers: Urinary tract infection type: acute cystitis Hematuria presence: without hematuria Qualified Code(s): N30.00 - Acute cystitis without hematuria (2) Lung cancer, primary, with metastasis from lung to other site Current Visit: Yes Status: Chronic Assessment and plan: -Oncology proceeding with radiation treatments Qualifiers: Laterality: left Qualified Code(s): C34.92 - Malignant neoplasm of unspecified part of left bronchus or lung (3) Hypokalemia Current Visit: Yes Status: Acute Assessment and plan: -Improving; continue supplementation as needed - Subjective Interval history: Patient reports that she feels better this morning. Oncology to proceed with radiation treatments - Constitutional Vitals: Temp Pulse Resp BP Pulse Ox 98.0 F 100 19 117/78 96 10/14/17 18:40 10/14/17 18:40 10/14/17 18:40 10/14/17 18:40 10/14/17 18:40 General appearance: Present: cooperative, A&O X 3, pleasant, no acute distress, answers questions appropriately - Respiratory Respiratory exam: Present: CTAB. Absent: accessory muscle use, rales, rhonchi, wheezes - Cardiovascular Cardiovascular exam: Present: RRR, +S1, +S2. Absent: diastolic murmur, gallop, rubs, systolic murmur Internal Medicine: Result - Labs CBC & Chem 7: 10/14/17 04:00 10/14/17 04:00 Labs: Short CBC 10/14/17 Range/Units 04:00 WBC 9.6 (4.3-11.1) K/mcL Hgb 9.4 L (11.5-15.4) g/dL Hct 29.5 L (35.3-44.9) % Plt Count 86 L (140-400) K/mcL Neutrophils # 8.3 (1.6-8.9) K/mcL BMP 10/14/17 04:00 Sodium 132 L Potassium 3.4 L Chloride 105 Carbon Dioxide 19 BUN 4 L Creatinine 0.53 L Glucose 126 H Calcium 7.1 L Liver Function 10/14/17 Range/Units 04:00 Total Bilirubin 1.3 H (0.2-1.2) mg/dL AST 38 H (5-34) Units/L ALT 42 (0-55) Units/L Alkaline Phosphatase 420 H (38-126) Units/L Albumin 1.4 L (3.5-5.0) g/dL - ABG Interpretation ABG results: PT/INR, D-dimer PT 17.7 Seconds (9.4-12.1) H 10/13/17 03:06 - VTE Documentation of Mechanical Device: Intermittent pneumatic compression device Consult Discharge Plan - Plan Referrals: ColopyRik DO [Primary Care Provider] -
[2017-10-15 04:39] LABS: Basophils % 0.2 %; Eosinophils % 0.2 %; Hemoglobin 9.3 g/dL (11.5-15.4)
[2017-10-15 04:40] LABS: Hematocrit 29.4 % (35.3-44.9); Immature Granulocytes % 2.8 % (0-4); Immature Platelets 7.5 % (1.1-6.1); Lymphocytes # 0.3 K/mcL (0.6-4.6); Lymphocytes % 3.1 %; Mean Corpuscular HGB Conc 31.6 g/dL (31.6-35.5); Mean Corpuscular Hemoglobin 29.4 pg (28.0-33.3); Monocytes # 0.4 K/mcL (0.0-1.3); Monocytes % 4.7 %; Red Blood Count 3.16 M/mcL (3.82-4.97); Red Cell Distribution Width 17.2 % (11.5-14.5)
[2017-10-15 04:52] LABS: Neutrophils # 7.7 K/mcL (1.6-8.9); Platelet Count 80 K/mcL (140-400)
[2017-10-15 05:12] LABS: Alanine Aminotransferase 41 Units/L (7-52); Albumin 2.2 g/dL (3.5-5.7); Alkaline Phosphatase 452 Units/L (34-104); Aspartate Amino Transferase 59 Units/L (13-39); BUN/Creatinine Ratio 13 (6-26); Blood Urea Nitrogen 5 mg/dL (6-20); Calcium 7.1 mg/dL (8.6-10.3); Carbon Dioxide 21 mEq/L (23-29); Chloride 111 mEq/L (98-107); Globulin 2.3 g/dL (2.4-3.5); Glucose 130 mg/dL (70-105); Osmolality,Calculated 281 (280-300); Potassium 4.9 mEq/L (3.5-5.1); Sodium 136 mEq/L (136-145); Total Protein 4.5 g/dL (6.4-8.9); eGFR For African Americans > 60 (> 60); eGFR For Non-African Americans > 60 (> 60)
--- NOTE | 2017-10-15 09:06 | Oncology Inp Progress Note ---
Date of Encounter: 10/15/17 Time of Encounter: 08:00 (1) Lung cancer, primary, with metastasis from lung to other site Current Visit: Yes Status: Chronic Assessment and plan: Aggressive metastatic lung cancer. She is slowly recovering but making great strides. She may continue with radiation at the discretion of radiation oncology. Encouraged ambulation and cessation of rahman. She would like to return home, and if she can ambulate and urinate with issue, this should be possible in the near future. Continue prednisone as prescribed and valtrex for herpetic eruption. I will schedule follow-up me after the New Year. We will otherwise sign off. Please call with questions. Qualifiers: Laterality: left Qualified Code(s): C34.92 - Malignant neoplasm of unspecified part of left bronchus or lung Oncology: Subj Interval history: Feeling better again today. Making strides in her recovery. Ambulated about the room a bit. Rahman remains in place. No further confusion. No pain. No fever or chills. - Constitutional Vitals: Vital Signs Temp Pulse Resp BP Pulse Ox 10/15/17 07:39 97.8 F 89 15 136/81 99 10/15/17 04:17 98.9 F 87 19 132/80 96 10/14/17 18:40 98.0 F 100 19 117/78 96 10/14/17 14:58 98.2 F 102 16 125/77 97 10/14/17 11:13 97.6 F 99 16 115/82 98 Intake and Output 10/15/17 10/15/17 10/15/17 00:59 08:59 16:59 Intake Total 1000 / 1000 200 / 200 Output Total 1350 / 1350 550 / 550 Balance -350 / -350 -350 / -350 Intake: IV Fluids 1000 / 1000 KCl 20 mEq in 0.9% Sodium 1000 / 1000 Chloride 20 meq In 1,000 ml @ 75 mls/hr IVC .[id number] [facility] Rx#: [id number] Oral 0 / 0 200 / 200 Output: Stool 125 / 125 Catheter 1350 / 1350 425 / 425 Other: Stool Size Moderate Moderate Stool Consistency liquid liquid Stool Color Brown Brown Yellow # Bowel Movement Diapers 1 Weight 68 kg Patient Weight 10/16/17 00:59 Weight 68 kg General appearance: average body habitus, cooperative, no acute distress - Head Head exam: Present: atraumatic, normal inspection, normocephalic - Eye Eye exam: Present: conjuntiva pink, sclera anicteric - ENT ENT exam: Present: mucous membranes moist, normal exam - Neck Neck exam: Present: full ROM, normal inspection - Respiratory Respiratory exam: Present: decreased breath sounds - Cardiovascular Cardiovascular exam: Present: RRR - GI/Abdominal GI/Abdominal exam: Present: normal bowel sounds, soft - Extremities Exam Extremities exam: Present: normal inspection - Neurological Exam Neurological exam: Present: alert, CN II-XII intact, oriented X3, no focal deficits - Skin Skin exam: Present: normal color Oncology: Obj Data - Labs CBC & Chem 7: 10/15/17 04:25 10/15/17 04:25 Labs: Laboratory Results - last 24 hr 10/14/17 10/15/17 10/15/17 04:00 04:25 04:25 WBC 8.6 RBC 3.16 L Hgb 9.3 L Hct 29.4 L MCV 93.0 MCH 29.4 MCHC 31.6 RDW 17.2 H Plt Count 80 L MPV 12.0 Immature Gran % 2.8 Seg Neutrophils % 89.0 Lymphocytes % 3.1 Monocytes % 4.7 Eosinophils % 0.2 Basophils % 0.2 Neutrophils # 7.7 Lymphocytes # 0.3 L Monocytes # 0.4 Eosinophils # 0.0 Basophils # 0.0 Immature Plt Fraction 7.5 H Sodium 132 L 136 Potassium 3.4 L 4.9 Chloride 105 111 H Carbon Dioxide 19 21 L BUN 4 L 5 L Creatinine 0.53 L 0.40 L Est GFR ( Amer) > 60 > 60 Est GFR (Non-Af Amer) > 60 > 60 BUN/Creatinine Ratio 8 13 Glucose 126 H 130 H Calculated Osmolality 272 L 281 Calcium 7.1 L 7.1 L Magnesium 2.0 Total Bilirubin 1.3 H 1.0 AST 38 H 59 H ALT 42 41 Alkaline Phosphatase 420 H 452 H Serum Total Protein 4.5 L 4.5 L Albumin 1.4 L 2.2 L Globulin 3.1 2.3 L Albumin/Globulin Ratio 0.5 L 1.0 L - ABG Interpretation ABG results: PT/INR, D-dimer PT 17.7 Seconds (9.4-12.1) H 10/13/17 03:06 Consult Discharge Plan - Plan Referrals: Colopy,Rik Montenegro DO [Primary Care Provider] -
[2017-10-15] MEDS: Magic Mouthwash 10 ML UD Cup PO SCH ×3 (09:39→17:34)
[2017-10-15] MEDS: Megestrol Acetate 400 MG/10 ML UDC PO SCH (09:40)
[2017-10-15] MEDS: valACYclovir 500 MG TABLET PO SCH (09:40)
[2017-10-15] MEDS: Cefdinir 300 MG CAPSULE PO SCH ×2 (09:40→21:18)
[2017-10-15] MEDS: Lactobacillus 1 EACH CAP.SPRINK PO SCH (09:40)
[2017-10-15] MEDS: predniSONE 5 MG TABLET PO SCH ×2 (09:40→21:19)
[2017-10-15] MEDS: levoFLOXacin 750 MG TABLET PO SCH (09:40)
[2017-10-15] MEDS: Aspirin Enteric Coated 81 MG Tablet PO SCH (09:41)
--- NOTE | 2017-10-15 17:45 | Discharge Summary ---
Date of Encounter: 10/15/17 Time of Encounter: 11:00 - Discharge Diagnosis (1) Urinary tract infection Priority: Primary Status: Suspected Qualifiers: Urinary tract infection type: acute cystitis Hematuria presence: without hematuria Qualified Code(s): N30.00 - Acute cystitis without hematuria (2) Lung cancer, primary, with metastasis from lung to other site Priority: Secondary Status: Chronic Qualifiers: Laterality: left Qualified Code(s): C34.92 - Malignant neoplasm of unspecified part of left bronchus or lung (3) Hypokalemia Priority: Secondary Status: Acute - Discharge Medications Prescriptions: Cefdinir [Omnicef] 300 mg PO BID #14 capsule levoFLOXacin [Levaquin] 750 mg PO DAILY #7 tablet Home Medications: Levothyroxine [Synthroid] 100 mcg PO DAILY #90 tablet 03/21/17 [Rx] Potassium Chloride [K-Tab ER] 40 meq PO BID #180 tablet.er 03/21/17 [Rx] Valacyclovir HCl [Valtrex] 1,000 mg PO DAILY #30 tab 07/25/17 [Rx] predniSONE [Prednisone] 5 mg PO HS 07/25/17 [History] Furosemide [Lasix] 20 mg PO DAILY #30 tablet 10/09/17 [Rx] Docusate Sodium [Dok] 100 mg PO DAILY PRN 10/12/17 [History] LORazepam [Ativan] 1 mg PO DAILY PRN 10/12/17 [History] Loperamide [Imodium] 2 mg PO QID PRN 10/12/17 [History] Minocycline [Minocin] 100 mg PO DAILY 10/12/17 [History] hydroCHLOROthiazide [Hydrochlorothiazide] 25 mg PO DAILY 10/12/17 [History] Cefdinir [Omnicef] 300 mg PO BID #14 capsule 10/15/17 [Rx] levoFLOXacin [Levaquin] 750 mg PO DAILY #7 tablet 10/15/17 [Rx] Allergies/Adverse Reactions: 3 Allergy/AdvReac Type Severity Reaction Status Date / Time ferrous sulfate Allergy Unknown Unknown Verified 10/12/17 16:51 Sulfa (Sulfonamide Allergy Unknown Unknown Verified 10/12/17 16:51 Antibiotics) Procedures/tests Complete & Pending: Procedures Performed prior 72 hours Category Date Time Status EV echocardiogram Routine Y 10/13/17 18:26 Completed Date of admission: 10/12/17 17:06 Primary care physician: Rik Cisneros Consults: 10/12/17 18:10 Consult to Occupational Therapy [CONS] Routine Comment: Evaluate, develop and implement POC Reason for Consult: Pt. is extremely fatigued and weak d/t cancer dx and current urosepsis. Please assess for ambulation strength, stability, and safety for possible home assistive needs for post-discharge planning. Consult to Plant Director [CONS] Routine Reason for SW Consult: Please assess patient for possible home needs for post -discharge planning 10/12/17 18:12 Consult to Nutrition [CONS] Routine Comment: Consulting Provider: NUTRITION Reason for Dietary Consult: PO Supplementation Other:: Pt. needs PO supplementation d/t reduced intake r/t cancer tx Consult to Physical Therapy [CONS] Routine Comment: Evaluate, develop and implement POC Reason for Consult: Pt. is extremely fatigued and weak d/t cancer dx and current urosepsis. Please assess for ambulation strength, stability, and safety for possible home assistive needs for post-discharge planning. 10/12/17 18:13 Consult to Oncology Radiation [CONS] Routine Consulting Provider: Oncology Rad[facility] [place] Reason for Consult: Pt. sees Dr. Sands and is due to have radiation this week but is now admitted for urosepsis. Pt. and family are wanting Dr. Sands to be aware of pts. current admission due to scheduled radiation txs this week. Call Completed: No Consult to Oncology [CONS] Routine Consulting Provider: [facility] [place] Reason for Consult: Pt. sees Dr. Soliz and is admitted for urosepsis and severe weakness/fatigue. Family wanted Dr. Soliz to be aware of pts. current admission. Call Completed: No 10/12/17 18:32 Consult to Nutrition [CONS] Routine Comment: Consulting Provider: NUTRITION Reason for Dietary Consult: MST Score - Patient Status Disposition: Home, Self-Care Condition: Fair - Discharge Instructions Follow Up With: Rik Cisneros DO [Primary Care Provider] - Hospital course: Patient is a 57-year-old female with past medical history significant for thyroid disease and lung cancer with metastasis to the brain who presents to the ER on 10/12/17 due to weakness and fatigue. Patient reported above extreme weakness and fatigue for the past 2 days prior to admission. Patient was discharged on 10/09/17 for UTI and sepsis. Patient reports that after recent radiation treatment she has become much more progressively weak and tired. She is followed by Dr. Soliz and Dr. Sands and states she is due for radiation treatments this week. In the ER, patient was found to have urosepsis and was admitted to medical floor for further medical management. During patients hospital stay she was treated with IV Levaquin and Zosyn and then de-escalated to Omnicef and oral Levaquin. Patients weakness improved and she was given 2 additional radiation treatments during hospital stay. She will be discharged to continue a 7 day course of Omnicef and Levaquin. She will continue to follow up with hematology/oncology as an outpatient. - Time Spent with Patient Total time spent providing and/or coordinating discharge services: Less than 30 minutes - Constitutional Vitals: Temp Pulse Resp BP Pulse Ox 97.8 F 93 15 123/78 99 10/15/17 16:00 10/15/17 16:00 10/15/17 16:00 10/15/17 16:00 10/15/17 16:00 General appearance: Present: cooperative, A&O X 3, pleasant, no acute distress, answers questions appropriately - Respiratory Respiratory exam: Present: CTAB. Absent: accessory muscle use, rales, rhonchi, wheezes - Cardiovascular Cardiovascular exam: Present: RRR, +S1, +S2. Absent: diastolic murmur, gallop, rubs, systolic murmur - VTE Documentation of Mechanical Device: Intermittent pneumatic compression device
[2017-10-16 04:57] LABS: Basophils % 0.2 %; Eosinophils # 0.1 K/mcL (0.0-0.6); Eosinophils % 0.6 %; Hematocrit 31.6 % (35.3-44.9); Hemoglobin 9.7 g/dL (11.5-15.4); Immature Granulocytes % 2.2 % (0-4); Lymphocytes # 0.5 K/mcL (0.6-4.6); Lymphocytes % 3.6 %; Mean Corpuscular HGB Conc 30.7 g/dL (31.6-35.5); Mean Corpuscular Hemoglobin 29.3 pg (28.0-33.3); Mean Corpuscular Volume 95.5 fL (83.0-100.0); Mean Platelet Volume 11.7 fL (9.4-12.4); Monocytes # 0.6 K/mcL (0.0-1.3); Monocytes % 4.6 %; Neutrophils # 11.1 K/mcL (1.6-8.9); Platelet Count 112 K/mcL (140-400); Red Blood Count 3.31 M/mcL (3.82-4.97); Red Cell Distribution Width 17.8 % (11.5-14.5); Segmented Neutrophils % 88.8 %
[2017-10-16 05:14] LABS: Alanine Aminotransferase 59 Units/L (7-52); Albumin 2.4 g/dL (3.5-5.7); Alkaline Phosphatase 531 Units/L (34-104); Aspartate Amino Transferase 85 Units/L (13-39); BUN/Creatinine Ratio 14 (6-26); Blood Urea Nitrogen 6 mg/dL (6-20); Calcium 7.2 mg/dL (8.6-10.3); Carbon Dioxide 21 mEq/L (23-29); Chloride 111 mEq/L (98-107); Globulin 2.3 g/dL (2.4-3.5); Glucose 103 mg/dL (70-105); Osmolality,Calculated 288 (280-300); Potassium 4.7 mEq/L (3.5-5.1); Sodium 140 mEq/L (136-145); Total Protein 4.7 g/dL (6.4-8.9); eGFR For African Americans > 60 (> 60); eGFR For Non-African Americans > 60 (> 60)
[2017-10-16 09:26] LABS: INR 1.5; Prothrombin Time 16.5 Seconds (9.4-12.1)
[2017-10-16 09:28] LABS: Activated Partial Thrombo Time 31.9 Seconds (26.0-36.0)
--- NOTE | 2017-10-16 14:46 | Neurology - Consult Note ---
<Abel Garg - Last Filed: 10/16/17 14:41> Date of Encounter: 10/16/17 Time of Encounter: 14:41 Assessment and Plan (1) Ischemic stroke Current Visit: Yes Status: Acute patient was ready for discharge today when stoke alert was called. patient was having left arm and left leg weakness with left sided facial drooping. [facility] neurology recommended against TPA because the duration of patient's symptoms was unknown. head MRA showed no vascular narrowing. neck MRA showed no vascular narrowing. brain MRI showed multiple areas of decreased diffusion bilaterall in cerebral and cerebellar area representing acute infarcts. patient was evaluated by cardiology for elevated troponins, recommended against statin use due to liver mets Plan: continue ASA agree with PT/OT, speech therapy discussion regarding goals of care initiated. To follow up with primary team/ oncology regarding POA, end of life care, etc. (2) Lung cancer, primary, with metastasis from lung to other site Current Visit: Yes Status: Chronic per primary and oncology service Qualifiers: Laterality: left Qualified Code(s): C34.92 - Malignant neoplasm of unspecified part of left bronchus or lung (3) Metastatic cancer to brain Current Visit: Yes Status: Chronic (4) Sepsis Current Visit: Yes Status: Acute per primary Qualifiers: Sepsis type: sepsis due to unspecified organism Qualified Code(s): A41.9 - Sepsis, unspecified organism History of Present Illness Chief complaint: stroke alert HPI: Ms. 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 Patient arrived to [facility] on 10/12/17 with chief complaint of generalized weakness, fatigue, and altered mental status. Of note she was recently discharged from the hospital last week on 10/09/17 after being treated for sepsis secondary to UTI. According to family members, patient states that when she went home after her radiation treatment, she slept for a long period of time and never completed the course of antibiotics that she was sent home with. she came back to the hospital for sepsis secondary to UTI. blood cultures are negative. Patient also had elevated troponins upon admission. she was evaluated by cardiology. they recommended continuing aspirin and low dose beta vidya. it was not recommended that she use Statin therapy because of her liver mets. Patient was ready for discharge this morning. However, she was found to have left sided facial drooping and stroke alert was called. patient was kept for further workup. Today, patient is very somnolent. she denies nausea, vomiting, diarrhea , fever, chills, chest pain, shortness of breath. she denies history of stroke. Past Med Surg Social Fam HX - Past Medical History Medical history: cancer (Lung w/metastasis to brain), thyroid disease, other Psychiatric history: no psych history - Social History Smoking Status: Never smoker Smokeless Tobacco Status: No Alcohol use: none Drug use: none - Family History Father Race: Family Member Ethnicity: Non- Living Status: Still Living Hx Family Endocrine Disorder: Yes (DM) Mother Race: Family Member Ethnicity: Non- Living Status: Age at : 79 Cause of : DE Hx Family Cardiac Disorders: Yes (DE) Brother Race: Family Member Ethnicity: Non- Living Status: Still Living Hx Family Medical Disorders: No Sister Race: Family Member Ethnicity: Non- Living Status: Still Living Hx Family Cardiac Disorders: Yes (HTN, HLD) Medications and Allergies Levothyroxine [Synthroid] 100 mcg PO DAILY #90 tablet 03/21/17 [Rx] Potassium Chloride [K-Tab ER] 40 meq PO BID #180 tablet.er 03/21/17 [Rx] Valacyclovir HCl [Valtrex] 1,000 mg PO DAILY #30 tab 07/25/17 [Rx] predniSONE [Prednisone] 5 mg PO HS 07/25/17 [History] Furosemide [Lasix] 20 mg PO DAILY #30 tablet 10/09/17 [Rx] Docusate Sodium [Dok] 100 mg PO DAILY PRN 10/12/17 [History] LORazepam [Ativan] 1 mg PO DAILY PRN 10/12/17 [History] Loperamide [Imodium] 2 mg PO QID PRN 10/12/17 [History] Minocycline [Minocin] 100 mg PO DAILY 10/12/17 [History] hydroCHLOROthiazide [Hydrochlorothiazide] 25 mg PO DAILY 10/12/17 [History] Cefdinir [Omnicef] 300 mg PO BID #14 capsule 10/15/17 [Rx] levoFLOXacin [Levaquin] 750 mg PO DAILY #7 tablet 10/15/17 [Rx] 3 Allergy/AdvReac Type Severity Reaction Status Date / Time ferrous sulfate Allergy Unknown Unknown Verified 10/12/17 16:51 Sulfa (Sulfonamide Allergy Unknown Unknown Verified 10/12/17 16:51 Antibiotics) All Systems: A 10-system review of systems was performed and is negative for pertinent findings except as documented above in the HPI. Physical Examination - Vital Signs Vital Signs: Initial Vital Signs Temp Pulse Resp BP Pulse Ox 98.2 F 130 16 119/72 96 10/12/17 13:21 10/12/17 13:21 10/12/17 13:21 10/12/17 13:21 10/12/17 13:21 - Constitutional General appearance: comfortable, chronically ill, older than stated age - Neurologic Sensorimotor examination: hemiparesis, other (left upper extremity weakness, decreased strenth throuhout but more prominent in left upper extremity. 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 Cranial nerve examination: PERRL Results - Laboratory Findings CBC and BMP: 10/16/17 04:15 10/16/17 04:15 Abnormal lab findings: Abnormal lab results WBC 12.5 K/mcL (4.3-11.1) H 10/16/17 04:15 RBC 3.31 M/mcL (3.82-4.97) L 10/16/17 04:15 Hgb 9.7 g/dL (11.5-15.4) L 10/16/17 04:15 Hct 31.6 % (35.3-44.9) L 10/16/17 04:15 MCHC 30.7 g/dL (31.6-35.5) L 10/16/17 04:15 RDW 17.8 % (11.5-14.5) H 10/16/17 04:15 Plt Count 112 K/mcL (140-400) L 10/16/17 04:15 Neutrophils # 11.1 K/mcL (1.6-8.9) H 10/16/17 04:15 Lymphocytes # 0.5 K/mcL (0.6-4.6) L 10/16/17 04:15 Reactive Lymphocytes Present (Not Present) A 10/12/17 14:03 Immature Plt Fraction 7.5 % (1.1-6.1) H 10/15/17 04:25 Polychromasia 1+ (Not Present) A 10/12/17 14:03 Anisocytosis 1+ (Not Present) A 10/12/17 14:03 PT 16.5 Seconds (9.4-12.1) H 10/16/17 09:06 Chloride 111 mEq/L (98-107) H 10/16/17 04:15 Carbon Dioxide 21 mEq/L (23-29) L 10/16/17 04:15 Creatinine 0.42 mg/dL (0.60-1.20) L 10/16/17 04:15 Calcium 7.2 mg/dL (8.6-10.3) L 10/16/17 04:15 AST 85 Units/L (13-39) H 10/16/17 04:15 ALT 59 Units/L (7-52) H 10/16/17 04:15 Alkaline Phosphatase 531 Units/L (34-104) H 10/16/17 04:15 Troponin I 1.19 ng/mL (0-0.03) H* 10/13/17 03:06 Serum Total Protein 4.7 g/dL (6.4-8.9) L 10/16/17 04:15 Albumin 2.4 g/dL (3.5-5.7) L 10/16/17 04:15 Globulin 2.3 g/dL (2.4-3.5) L 10/16/17 04:15 Albumin/Globulin Ratio 1.0 (1.1-2.2) L 10/16/17 04:15 Triglycerides 245 mg/dL (< 150) H 10/13/17 03:06 VLDL Cholesterol, Calc 49 mg/dL (< 31) H 10/13/17 03:06 HDL Cholesterol 7 mg/dL (40-59) L 10/13/17 03:06 Cholesterol/HDL Ratio 20.4 (0-4.9) H 10/13/17 03:06 Urine Clarity Cloudy (Clear) A 10/12/17 13:43 Urine Protein 100 mg/dL (Neg-Trace) H 10/12/17 13:43 Urine Ketones 80 mg/dL (Negative) H 10/12/17 13:43 Urine Bilirubin Small (Negative) H 10/12/17 13:43 Ur Leukocyte Esterase Trace (Negative) H 10/12/17 13:43 Urine Microscopic WBC 15-30 per hpf (0-3) H 10/12/17 13:43 Ur Squamous Epith Cells Many per lpf (None-Few) H 10/12/17 13:43 Urine Bacteria Moderate per hpf (None-Few) H 10/12/17 13:43 Urine Mucus Many (Few) H 10/12/17 13:43 Consult Discharge Plan - Plan Referrals: Rik Cisneros DO [Primary Care Provider] - Prescriptions: Cefdinir [Omnicef] 300 mg PO BID #14 capsule levoFLOXacin [Levaquin] 750 mg PO DAILY #7 tablet <Juan Jones - Last Filed: 10/16/17 17:04> Date of Encounter: 10/16/17 Time of Encounter: 16:45 Assessment and Plan (1) Ischemic stroke Current Visit: Yes Status: Acute As above. I presume that the etiology of the stroke movement cardiogenic perhaps secondary to a mural thrombus perhaps [place] endocarditis. Perhaps an embolic source from the aortic arch perhaps there is a hypercoagulable state due to her underlying malignancy. In any regard unfortunately I would not recommend anticoagulation in this patient. I would simply maintain aspirin 81 mg daily indefinitely. Would avoid hypotension, avoid glucose in the IV solutions. I did discuss my thoughts with the patient's son and other family present. I see no evidence of herniation present she still has multiple foci of metastatic disease in the brain as well. We will reevaluate at your request. History of Present Illness HPI: Ms. Liao is a 57 year old female who is seen for neurologic consultation at the request of the hospitalist service secondary to acute mental status changes. Patient was seen and evaluated independently. Case was discussed with Dr. Garg. I agree with her documentation as stated above. Apparently they were not able to document her last known well. 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 She did have an MRI scan which reveals scattered acute infarcts involving the cerebral cortex, as well as deep white matter bilaterally. There are also bilateral acute cerebellar infarcts. She has known metastatic disease with multiple brain metastatic lesions. All Systems: A 10-system review of systems was performed and is negative for pertinent findings except as documented above in the HPI. Review of Systems: Patient is arousable but somewhat somnolent. Not really reliable for review of systems. Physical Examination - Vital Signs Vital Signs: Initial Vital Signs Temp Pulse Resp BP Pulse Ox 98.2 F 130 16 119/72 96 10/12/17 13:21 10/12/17 13:21 10/12/17 13:21 10/12/17 13:21 10/12/17 13:21 - Neurologic Detailed sensory examination: light touch, pain Mental Status Examination: Agree with the above. She does make eye contact, she follows some simple commands but not all. She is verbal. Cranial Nerve Exam: facial droop: Left, flattening of masolabic/folds: Left Results - Laboratory Findings CBC and BMP: 10/16/17 04:15 10/16/17 04:15 Abnormal lab findings: Abnormal lab results WBC 12.5 K/mcL (4.3-11.1) H 10/16/17 04:15 RBC 3.31 M/mcL (3.82-4.97) L 10/16/17 04:15 Hgb 9.7 g/dL (11.5-15.4) L 10/16/17 04:15 Hct 31.6 % (35.3-44.9) L 10/16/17 04:15 MCHC 30.7 g/dL (31.6-35.5) L 10/16/17 04:15 RDW 17.8 % (11.5-14.5) H 10/16/17 04:15 Plt Count 112 K/mcL (140-400) L 10/16/17 04:15 Neutrophils # 11.1 K/mcL (1.6-8.9) H 10/16/17 04:15 Lymphocytes # 0.5 K/mcL (0.6-4.6) L 10/16/17 04:15 Reactive Lymphocytes Present (Not Present) A 10/12/17 14:03 Immature Plt Fraction 7.5 % (1.1-6.1) H 10/15/17 04:25 Polychromasia 1+ (Not Present) A 10/12/17 14:03 Anisocytosis 1+ (Not Present) A 10/12/17 14:03 PT 16.5 Seconds (9.4-12.1) H 10/16/17 09:06 Chloride 111 mEq/L (98-107) H 10/16/17 04:15 Carbon Dioxide 21 mEq/L (23-29) L 10/16/17 04:15 Creatinine 0.42 mg/dL (0.60-1.20) L 10/16/17 04:15 Calcium 7.2 mg/dL (8.6-10.3) L 10/16/17 04:15 AST 85 Units/L (13-39) H 10/16/17 04:15 ALT 59 Units/L (7-52) H 10/16/17 04:15 Alkaline Phosphatase 531 Units/L (34-104) H 10/16/17 04:15 Troponin I 1.19 ng/mL (0-0.03) H* 10/13/17 03:06 Serum Total Protein 4.7 g/dL (6.4-8.9) L 10/16/17 04:15 Albumin 2.4 g/dL (3.5-5.7) L 10/16/17 04:15 Globulin 2.3 g/dL (2.4-3.5) L 10/16/17 04:15 Albumin/Globulin Ratio 1.0 (1.1-2.2) L 10/16/17 04:15 Triglycerides 245 mg/dL (< 150) H 10/13/17 03:06 VLDL Cholesterol, Calc 49 mg/dL (< 31) H 10/13/17 03:06 HDL Cholesterol 7 mg/dL (40-59) L 10/13/17 03:06 Cholesterol/HDL Ratio 20.4 (0-4.9) H 10/13/17 03:06 Urine Clarity Cloudy (Clear) A 10/12/17 13:43 Urine Protein 100 mg/dL (Neg-Trace) H 10/12/17 13:43 Urine Ketones 80 mg/dL (Negative) H 10/12/17 13:43 Urine Bilirubin Small (Negative) H 10/12/17 13:43 Ur Leukocyte Esterase Trace (Negative) H 10/12/17 13:43 Urine Microscopic WBC 15-30 per hpf (0-3) H 10/12/17 13:43 Ur Squamous Epith Cells Many per lpf (None-Few) H 10/12/17 13:43 Urine Bacteria Moderate per hpf (None-Few) H 10/12/17 13:43 Urine Mucus Many (Few) H 10/12/17 13:43
[2017-10-16] MEDS: Lactobacillus 1 EACH CAP.SPRINK PO SCH (18:02)
[2017-10-16] MEDS: Aspirin Enteric Coated 81 MG Tablet PO SCH (18:02)
[2017-10-16] MEDS: levoFLOXacin 750 MG TABLET PO SCH (18:03)
[2017-10-16] MEDS: valACYclovir 500 MG TABLET PO SCH (18:04)
[2017-10-16] MEDS: predniSONE 5 MG TABLET PO SCH ×2 (18:04→21:49)
[2017-10-16] MEDS: Magic Mouthwash 10 ML UD Cup PO SCH (18:21)
--- NOTE | 2017-10-16 18:26 | Internal Med Progress Note ---
Date of Encounter: 10/16/17 Time of Encounter: 08:00 - Assessment and plan (1) Ischemic stroke Current Visit: Yes Status: Acute Assessment and plan: -Patient with new onset of left sided facial droop with left upper extremity and left lower extremity weakness secondary to ischemic stroke -Neurology consulted and appreciate recommendations (2) Urinary tract infection Current Visit: Yes Status: Suspected Assessment and plan: Continue Omnicef and Levaquin. Qualifiers: Urinary tract infection type: acute cystitis Hematuria presence: without hematuria Qualified Code(s): N30.00 - Acute cystitis without hematuria (3) Lung cancer, primary, with metastasis from lung to other site Current Visit: Yes Status: Chronic Assessment and plan: -Oncology proceeding with radiation treatments Qualifiers: Laterality: left Qualified Code(s): C34.92 - Malignant neoplasm of unspecified part of left bronchus or lung (4) Hypokalemia Current Visit: Yes Status: Acute Assessment and plan: -Improving; continue supplementation as needed - Subjective Interval history: Stroke alert was called this morning due to new onset of left-sided weakness On examination of the patient, she had left-sided facial droop and unable to raise her left arm or left leg. Patient was taken down to the ER for CAT scan and consult with [facility] neurology was made with no recommendations for TPA given no clear last well time. - Constitutional Vitals: Temp Pulse Resp BP Pulse Ox 97.5 F L 95 15 133/77 95 10/16/17 15:00 10/16/17 15:00 10/16/17 15:00 10/16/17 15:00 10/16/17 15:00 General appearance: Present: cooperative, A&O X 3, pleasant, no acute distress, answers questions appropriately - Expanded Neurological Exam Speech: Present: slurred Sensory exam: lower extremity light touch: Abnormal Left Neuro motor strength exam: LUE: 0, LLE: 0 Internal Medicine: Result - Labs CBC & Chem 7: 10/16/17 04:15 10/16/17 04:15 Labs: Short CBC 10/16/17 Range/Units 04:15 WBC 12.5 H (4.3-11.1) K/mcL Hgb 9.7 L (11.5-15.4) g/dL Hct 31.6 L (35.3-44.9) % Plt Count 112 L (140-400) K/mcL Neutrophils # 11.1 H (1.6-8.9) K/mcL BMP 10/16/17 04:15 Sodium 140 Potassium 4.7 Chloride 111 H Carbon Dioxide 21 L BUN 6 Creatinine 0.42 L Glucose 103 Calcium 7.2 L Liver Function 10/16/17 Range/Units 04:15 Total Bilirubin 1.0 (0.3-1.0) mg/dL AST 85 H (13-39) Units/L ALT 59 H (7-52) Units/L Alkaline Phosphatase 531 H (34-104) Units/L Albumin 2.4 L (3.5-5.7) g/dL - ABG Interpretation ABG results: PT/INR, D-dimer PT 16.5 Seconds (9.4-12.1) H 10/16/17 09:06 - Impressions Impressions Head CT 10/16/17 08:44 IMPRESSION: 1. No acute intracranial hemorrhage. Unchanged multiple areas of hypodensities within left cerebral hemisphere, compared to 10/12/2017. This appears new since 06/10/2017 brain MRI. This may represent subacute or chronic infarcts. No new cortical hypodensities identified. If there is persistent concern for acute ischemia, MRI may be obtained. 2. Unchanged cortical calcification within left posterior parietal lobe. Findings were discussed with Dr. Matthieu Correa at 8:55pm at the scanner on 10/16/2017. D/ / Curtis Rojo MD / Curtis Rojo MD Interpreting Provider: Curtis Rojo MD Brain MRI 10/16/17 09:17 IMPRESSION: Multiple areas of restricted diffusion within the bilateral cerebral and cerebellar hemispheres, most compatible with acute infarcts. Increased vasogenic edema within the left frontal lobe when compared to previous brain MRI. There was an enhancing lesion in this region on the prior brain MRI. Given history of clival metastasis, recommend further evaluation with post-contrast imaging to exclude intracranial metastasis. Small area of susceptibility artifact within the superior aspect of the 4th ventricle corresponds to the enhancing mass seen on previous brain MRI. This may represent interval calcification or hemosiderin deposits within known metastases. Unchanged susceptibility artifact corresponding to calcifications seen on brain MRI. These are also stable compared to previous brain MRI. There was enhancement in this region on 09/23/2017 MRI, and this may represent metastasis. Redemonstration of large clivus mass, with expansion of the clivus. D/ / 10/16/2017 11:37:18 Curtis Rojo MD / kady Interpreting Provider: Curtis Rojo MD Neck MRA 10/16/17 09:18 IMPRESSION: Limited exam due to artifact from motion No focal significant vascular narrowing in the neck Occlusive change in the right M1 segment Lobular contour at the right carotid terminus. This likely represents volume averaging or artifact. A tiny aneurysm would be difficult to entirely exclude D/ / Myron Figueroa / Myron Figueroa Interpreting Provider: Myron Figueroa Head MRA 10/16/17 09:20 IMPRESSION: Limited exam due to artifact from motion No focal significant vascular narrowing in the neck Occlusive change in the right M1 segment Lobular contour at the right carotid terminus. This likely represents volume averaging or artifact. A tiny aneurysm would be difficult to entirely exclude D/ / Myron Figueroa / Myron Figueroa Interpreting Provider: Myron Figueroa - VTE Documentation of Mechanical Device: Intermittent pneumatic compression device Consult Discharge Plan - Plan Referrals: Rik Cisneros DO [Primary Care Provider] - Prescriptions: Cefdinir [Omnicef] 300 mg PO BID #14 capsule levoFLOXacin [Levaquin] 750 mg PO DAILY #7 tablet
--- NOTE | 2017-10-16 18:44 | Oncology Inp Progress Note ---
Date of Encounter: 10/16/17 Time of Encounter: 18:00 (1) Lung cancer, primary, with metastasis from lung to other site Current Visit: Yes Status: Chronic Assessment and plan: Aggressive metastatic lung cancer. 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 This appears unrecoverable. I have recommended to the patient to focus on recovery from the stroke to enable the best quality of life possible. No further anticancer therapy will be pursued, and hospice is recommended moving forward. I will consult palliative care to aid with this transition. I will try to be and d/w family tomorrow. Qualifiers: Laterality: left Qualified Code(s): C34.92 - Malignant neoplasm of unspecified part of left bronchus or lung Oncology: Subj Interval history: Upon leaving today, she developed facial droop, slurred speech and weakness. She was found to have an acute embolic-appearing stroke. Neurology has been consulted and assisted in her management. Family is not at bedside. She is sedated and upset. She denies pain currently. Nursing states communication is slow and difficult. - Constitutional Vitals: Vital Signs Temp Pulse Resp BP Pulse Ox 10/16/17 15:00 97.5 F L 95 15 133/77 95 10/16/17 06:48 97.7 F 97 15 133/90 97 10/16/17 05:44 91 17 133/92 97 10/15/17 19:41 98.1 F 104 18 135/86 96 General appearance: no acute distress - Head Head exam: Present: atraumatic, normal inspection, normocephalic - Eye Eye exam: Present: conjuntiva pink, sclera anicteric - ENT ENT exam: Present: mucous membranes moist, normal oropharynx - Neck Neck exam: Present: full ROM, normal inspection - Respiratory Respiratory exam: Present: CTAB - Cardiovascular Cardiovascular exam: Present: RRR - GI/Abdominal GI/Abdominal exam: Present: normal bowel sounds, soft - Extremities Exam Extremities exam: Present: normal inspection - Neurological Exam Neurological exam: Present: alert - Expanded Neurological Exam Neurological exam: Present: expressive aphasia Neuro motor strength exam: LUE: 2/1, RUE: 3, LLE: 2/1, RLE: 3 Coma Scale Eye Opening: To Voice Coma Scale Verbal Response: Confused - Skin Skin exam: Present: normal color Oncology: Obj Data - Labs CBC & Chem 7: 10/16/17 04:15 10/16/17 04:15 Labs: Laboratory Results - last 24 hr 10/16/17 10/16/17 10/16/17 04:15 04:15 09:01 WBC 12.5 H RBC 3.31 L Hgb 9.7 L Hct 31.6 L MCV 95.5 MCH 29.3 MCHC 30.7 L RDW 17.8 H Plt Count 112 L MPV 11.7 Immature Gran % 2.2 Seg Neutrophils % 88.8 Lymphocytes % 3.6 Monocytes % 4.6 Eosinophils % 0.6 Basophils % 0.2 Neutrophils # 11.1 H Lymphocytes # 0.5 L Monocytes # 0.6 Eosinophils # 0.1 Basophils # 0.0 PT INR APTT Sodium 140 Potassium 4.7 Chloride 111 H Carbon Dioxide 21 L BUN 6 Creatinine 0.42 L Est GFR ( Amer) > 60 Est GFR (Non-Af Amer) > 60 BUN/Creatinine Ratio 14 Glucose 103 POC Glucose 79 Calculated Osmolality 288 Calcium 7.2 L Total Bilirubin 1.0 AST 85 H ALT 59 H Alkaline Phosphatase 531 H Serum Total Protein 4.7 L Albumin 2.4 L Globulin 2.3 L Albumin/Globulin Ratio 1.0 L 10/16/17 09:06 WBC RBC Hgb Hct MCV MCH MCHC RDW Plt Count MPV Immature Gran % Seg Neutrophils % Lymphocytes % Monocytes % Eosinophils % Basophils % Neutrophils # Lymphocytes # Monocytes # Eosinophils # Basophils # PT 16.5 H INR 1.5 APTT 31.9 Sodium Potassium Chloride Carbon Dioxide BUN Creatinine Est GFR ( Amer) Est GFR (Non-Af Amer) BUN/Creatinine Ratio Glucose POC Glucose Calculated Osmolality Calcium Total Bilirubin AST ALT Alkaline Phosphatase Serum Total Protein Albumin Globulin Albumin/Globulin Ratio - Impressions Impressions Head CT 10/16/17 08:44 IMPRESSION: 1. No acute intracranial hemorrhage. Unchanged multiple areas of hypodensities within left cerebral hemisphere, compared to 10/12/2017. This appears new since 06/10/2017 brain MRI. This may represent subacute or chronic infarcts. No new cortical hypodensities identified. If there is persistent concern for acute ischemia, MRI may be obtained. 2. Unchanged cortical calcification within left posterior parietal lobe. Findings were discussed with Dr. Matthieu Correa at 8:55pm at the scanner on 10/16/2017. D/ / Curtis Rojo MD / Curtis Rojo MD Interpreting Provider: Curtis Rojo MD Brain MRI 10/16/17 09:17 IMPRESSION: 1. Multiple areas of restricted diffusion within bilateral cerebral and cerebellar hemispheres, most compatible with acute infarcts. 2. Increased vasogenic edema within the left frontal lobe when compared to previous brain MRI. There was an enhancing lesion in this region on the prior brain MRI. Given history of clival metastasis, recommend further evaluation with post-contrast imaging to evalute for interval change. 3. Small area of susceptibility artifact within superior aspect of the 4th ventricle corresponds to the enhancing mass seen on previous brain MRI. This may represent interval calcification or hemosiderin deposits within known metastases. 4. Unchanged susceptibility artifact corresponding to calcifications seen on brain MRI. These are also stable compared to previous brain MRI. There was enhancement in this region on 09/23/2017 MRI, and this may represent metastasis. 5. Redemonstration of large clivus mass, with expansion of the clivus. The findings were sent to the Radiology Results [facility] to be communicated to a licensed caregiver. D/ / 10/16/2017 11:37:18 Curtis Rojo MD / earnold Interpreting Provider: Curtis Rojo MD Neck MRA 10/16/17 09:18 IMPRESSION: Limited exam due to artifact from motion No focal significant vascular narrowing in the neck Occlusive change in the right M1 segment Lobular contour at the right carotid terminus. This likely represents volume averaging or artifact. A tiny aneurysm would be difficult to entirely exclude D/ / Myron Figueroa / Myron Figueroa Interpreting Provider: Myron Figueroa Head MRA 10/16/17 09:20 IMPRESSION: Limited exam due to artifact from motion No focal significant vascular narrowing in the neck Occlusive change in the right M1 segment Lobular contour at the right carotid terminus. This likely represents volume averaging or artifact. A tiny aneurysm would be difficult to entirely exclude D/ / Myron Figueroa / Myron Figueroa Interpreting Provider: Myron Figueroa - Imaging and cardiology MRI - head Status: image reviewed by me Additional comments: MRI OF THE BRAIN WITHOUT CONTRAST 10/16/2017 11:06 am TECHNIQUE: Multiplanar multisequence MRI of the brain was performed without the administration of intravenous contrast. COMPARISON: MRI brain on 09/23/2017 performed at [facility]. HISTORY: ORDERING SYSTEM PROVIDED HISTORY: cva FINDINGS: INTRACRANIAL STRUCTURES/VENTRICLES: There are multiple foci of restricted diffusion involving cortex and cerebral white matter bilaterally. These are most compatible with acute infarcts. There are multiple foci of restricted diffusion within bilateral cerebellum, which are also compatible with acute infarcts. There is increased cortical T2 signal and restricted diffusion involving right insular cortex and right MCA distribution. This likely represents areas of acute infarct. Some of these areas of restricted diffusion corresponds to hypodensity seen on CT brain 10/12/2017. There is an area of vasogenic edema within the left frontal lobe at the vertex, which appears increased since previous examination. There is no restricted diffusion associated with this abnormality. There are nonspecific T2 hyperintense white matter lesions. Nonspecific T2/FLAIR hyperintense findings within bilateral cerebellum. Susceptibility artifact within left posterior parietal lobe corresponds to the calcification seen on a previous head CT. This was likely there on the prior brain MRI on 06/10/2017. Small area of susceptibility artifact in the superior 4th ventricle appears new since previous examination. THere was ane enhancing nodule in this region on prior examination. ORBITS: The visualized portion of the orbits demonstrate no acute abnormality. SINUSES: Air-fluid levels with mucosal thickening within the left maxillary sinus. Bilateral mastoid effusions are nonspecific. BONES/SOFT TISSUES: Redemonstration of large clival mass. MR/MR head/brain wo con IMPRESSION: 1. Multiple areas of restricted diffusion within bilateral cerebral and cerebellar hemispheres, most compatible with acute infarcts. 2. Increased vasogenic edema within the left frontal lobe when compared to previous brain MRI. There was an enhancing lesion in this region on the prior brain MRI. Given history of clival metastasis, recommend further evaluation with post-contrast imaging to evalute for interval change. 3. Small area of susceptibility artifact within superior aspect of the 4th ventricle corresponds to the enhancing mass seen on previous brain MRI. This may represent interval calcification or hemosiderin deposits within known metastases. 4. Unchanged susceptibility artifact corresponding to calcifications seen on brain MRI. These are also stable compared to previous brain MRI. There was enhancement in this region on 09/23/2017 MRI, and this may represent metastasis. 5. Redemonstration of large clivus mass, with expansion of the clivus. - ABG Interpretation ABG results: PT/INR, D-dimer PT 16.5 Seconds (9.4-12.1) H 10/16/17 09:06 Consult Discharge Plan - Plan Referrals: Rik Cisneros DO [Primary Care Provider] - Prescriptions: Cefdinir [Omnicef] 300 mg PO BID #14 capsule levoFLOXacin [Levaquin] 750 mg PO DAILY #7 tablet
[2017-10-17 03:58] LABS: Basophils % 0.3 %; Eosinophils # 0.1 K/mcL (0.0-0.6); Eosinophils % 0.9 %; Hematocrit 32.8 % (35.3-44.9); Hemoglobin 10.4 g/dL (11.5-15.4); Immature Granulocytes % 2.4 % (0-4); Immature Platelets 6.3 % (1.1-6.1); Lymphocytes # 0.4 K/mcL (0.6-4.6); Lymphocytes % 2.9 %; Mean Corpuscular HGB Conc 31.7 g/dL (31.6-35.5); Mean Corpuscular Hemoglobin 30.4 pg (28.0-33.3); Mean Corpuscular Volume 95.9 fL (83.0-100.0); Mean Platelet Volume 11.5 fL (9.4-12.4); Monocytes # 0.8 K/mcL (0.0-1.3); Monocytes % 5.5 %; Neutrophils # 12.3 K/mcL (1.6-8.9); Platelet Count 130 K/mcL (140-400); Red Blood Count 3.42 M/mcL (3.82-4.97)
[2017-10-17 04:16] LABS: Alanine Aminotransferase 68 Units/L (7-52); Albumin 2.6 g/dL (3.5-5.7); Albumin/Globulin Ratio 1.1 (1.1-2.2); Alkaline Phosphatase 606 Units/L (34-104); Aspartate Amino Transferase 84 Units/L (13-39); BUN/Creatinine Ratio 19 (6-26); Bilirubin,Total 1.1 mg/dL (0.3-1.0); Blood Urea Nitrogen 9 mg/dL (6-20); Calcium 7.3 mg/dL (8.6-10.3); Carbon Dioxide 19 mEq/L (23-29); Chloride 110 mEq/L (98-107); Globulin 2.4 g/dL (2.4-3.5); Glucose 106 mg/dL (70-105); Osmolality,Calculated 281 (280-300); Potassium 5.1 mEq/L (3.5-5.1); Sodium 136 mEq/L (136-145); eGFR For African Americans > 60 (> 60); eGFR For Non-African Americans > 60 (> 60)
--- NOTE | 2017-10-17 07:50 | Palliative - Consult Note ---
<Nolberto Edmond - Last Filed: 10/17/17 10:08> Date of Encounter: 10/17/17 Time of Encounter: 07:49 - Assessment and Plan (1) Goals of care, counseling/discussion Current Visit: Yes Status: Acute Assessment and plan: Patient with history of lung cancer with mets to liver and brain who presented to the hospital on 10/12/17 with weakness, fatigue, and loss of appetite who was admitted with urosepsis and previously discharged 10/09/17 for similar problem. During course of treatment patient developed acute ischemic CVA yesterday, Oncology recommended no further anticancer therapy and to focus on recovery from the stroke and quality of life. Patient alert and arousable, but nonverbal. At bedside: Daughter and Sister. 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 Code status: at this time family members are in agreement patient expressed she does not want to be intubated or on ventilator. Uncertain about cardiac resuscitative measures, pending DPOA arrival for further discussion. As of 10:00am FULL CODE-DNI. Outcome of discussion: Family members present are in agreement to get patient as close as possible to previous baseline/recovery from stroke symptoms. Would not like to proceed with hospice at this time after discussion. Pain: no acute distress, appears pain is controlled based on exam Foods: Speech 10/17/17 evaluated patient and mentioned patient has functional swallow and no slurred speech or aphasia. Recommended advanced soft textures and thin liquids. To evaluate tomorrow for aphasia and assess additional language needs. However, patient was nonverbal for myself during my visit. No additional questions at the end of the visit, will revisit the POA () and family later this morning. No coverage over the weekend for Palliative Care, will be available on Friday. No General Inpatient Palliative available over the next week. 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 Soliz and Dr. Sands, was receiving palliative radiation and chemo. Oncology has recommended no further anticancer therapy after acute CVA yesterday (10/16/17) which they attribute likely from her cancer. Patient and family informed during our conversation this morning and expressed understanding. Qualifiers: Laterality: left Qualified Code(s): C34.92 - Malignant neoplasm of unspecified part of left bronchus or lung (3) Ischemic stroke Current Visit: Yes Status: Acute Assessment and plan: 10/16/17 patient was found to have left sided weakness and facial droop. Stroke alert was called and patient was determined to have on MRI of brain multiple areas of decreased diffusion bilaterally in the cerebral and cerebella areas representing acute infarcts. Neurology recommended speech eval, PT/OT. Speech eval 10/17/17 reviewed and revealed no overt functional problems with swallow. Recommended advanced soft textures and thin liquids and medication in puree. Will complete aphasia eval tomorrow for language needs. (4) Weakness Current Visit: Yes Status: Acute Assessment and plan: Prior to current and recent hospitalization for UTI/sepsis, patient was independent without assistive devices and working and driving with normal mentation/memory. Currently may be due to acute illness vs CVA. -Continue with PT/OT (5) Urinary tract infection Current Visit: Yes Status: Acute Assessment and plan: Improvement while on antibiotics until 10/16/17 when developed acute CVA. Continue with antibiotic therapy per Hospitalist recommendations. Qualifiers: Urinary tract infection type: acute cystitis Hematuria presence: without hematuria Qualified Code(s): N30.00 - Acute cystitis without hematuria Palliative-CN HPI - Data of Consult Consult date: 10/16/17 Requesting Physician: Jose David Minaya Primary Care Provider: Rik Cisneros - Consult Narrative Palliative Care/Comfort Measures: Palliative care Reason for consult: Progressive cancer, acute debilitating stroke History of present illness: Ms. Liao is a 57 year old female with history of progressive lung cancer diagnosed in 2012 with metastatic disease to liver and brain who was undergoing palliative radiation and chemo per Dr. Soliz and Dr. Sands who presented to the ED on 10/12/17 with complaint of weakness, fatigue, and loss of appetite. She was admitted with urosepsis, previously discharged 10/09/17 for UTI/sepsis, and was receiving appropriate antibiotic therapy and additional palliative radiation treatment over this hospital stay; however developed new onset left sided weakness and facial droop yesterday that was noted by Oncologist. Stroke alert was called and patient was determined to have on MRI of brain multiple areas of decreased diffusion bilaterally in the cerebral and cerebella areas representing acute infarcts. Based on the patient's lung cancer with mets history and new CVA, Oncology has recommended no futhrer anticancer therapy and to focus on recover from the stroke and quality of life. This morning I visited with the patient and daughter and sister at bedside. Patient was alert and arousable, but nonverbal. According to family members speech visited with patient and patient was able to nod that the next holiday was Nicolas, but unable to state any other orienting questions other than self. Daughter and sister had a very brief understanding of what was going on, so I informed them of our current treatment stay. We discussed code status, dpoa, treatment goals and quality of life prior to recent illness (before last hospitalization for UTI/sepsis). 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 The family members have mentioned that the patient has expressed wishes not to be on a ventilator or intubated ever again after previous hospitalization requiring intubation. Uncertain if she would like cardiac resuscitation, but reports the the will be acting POA when he arrives later this morning after 10am. Informed family members and nurse to contact Palliative Care team when everyone arrives. Discussed the recommendations of Oncology regarding recommendation for no further anticancer therapies. Discussed hospice availability vs possible SNF for rehab/PT/OT. Family members are in agreement to get patient as close as possible to previous baseline/recovery from stroke symptoms. No additional questions at the end of the visit, will revisit the POA () and family later this morning. CC: Jose David Minaya Past Med Surg Social Fam HX - Past Medical History Medical history: cancer (Lung w/metastasis to brain), thyroid disease, other Psychiatric history: no psych history - Social History Smoking Status: Never smoker Smokeless Tobacco Status: No Alcohol use: none Drug use: none - Family History Father Race: Family Member Ethnicity: Non- Living Status: Still Living Hx Family Endocrine Disorder: Yes (DM) Mother Race: Family Member Ethnicity: Non- Living Status: Age at : 79 Cause of : OK Hx Family Cardiac Disorders: Yes (OK) Brother Race: Family Member Ethnicity: Non- Living Status: Still Living Hx Family Medical Disorders: No Sister Race: Family Member Ethnicity: Non- Living Status: Still Living Hx Family Cardiac Disorders: Yes (HTN, HLD) Medications and Allergies Levothyroxine [Synthroid] 100 mcg PO DAILY #90 tablet 03/21/17 [Rx] Potassium Chloride [K-Tab ER] 40 meq PO BID #180 tablet.er 03/21/17 [Rx] Valacyclovir HCl [Valtrex] 1,000 mg PO DAILY #30 tab 07/25/17 [Rx] predniSONE [Prednisone] 5 mg PO HS 07/25/17 [History] Furosemide [Lasix] 20 mg PO DAILY #30 tablet 10/09/17 [Rx] Docusate Sodium [Dok] 100 mg PO DAILY PRN 10/12/17 [History] LORazepam [Ativan] 1 mg PO DAILY PRN 10/12/17 [History] Loperamide [Imodium] 2 mg PO QID PRN 10/12/17 [History] Minocycline [Minocin] 100 mg PO DAILY 10/12/17 [History] hydroCHLOROthiazide [Hydrochlorothiazide] 25 mg PO DAILY 10/12/17 [History] Cefdinir [Omnicef] 300 mg PO BID #14 capsule 10/15/17 [Rx] levoFLOXacin [Levaquin] 750 mg PO DAILY #7 tablet 10/15/17 [Rx] 3 Allergy/AdvReac Type Severity Reaction Status Date / Time ferrous sulfate Allergy Unknown Unknown Verified 10/12/17 16:51 Sulfa (Sulfonamide Allergy Unknown Unknown Verified 10/12/17 16:51 Antibiotics) ROS unobtainable: due to mental status Palliative Care-Exam - Constitutional Vitals: Temp Pulse Resp BP Pulse Ox 97.8 F 102 14 120/86 95 10/17/17 06:45 10/17/17 06:45 10/17/17 06:45 10/17/17 06:45 10/17/17 06:45 General appearance: Present: cooperative, no acute distress Exam: alert and arousable to self only, nonverbal, no moaning or groaning or other attempts to communicate, opens eyes spontaneously and squeezes right hand when prompted. - Head Head Exam: Present: atraumatic, normal inspection, normocephalic - Eye Eye exam: Present: PERRL - ENT ENT exam: Present: mucous membranes moist, normal external ear exam - Neck Neck exam: Present: normal inspection. Absent: tenderness - Respiratory Respiratory exam: Present: CTAB. Absent: rales, respiratory distress, rhonchi, wheezes - Cardiovascular Cardiovascular exam: Present: RRR, +S1, +S2. Absent: JVD - GI/Abdominal Exam GI/Abdominal exam: Present: normal bowel sounds, soft. Absent: tenderness - Extremities Exam Extremities exam: Present: normal capillary refill, normal inspection. Absent: pedal edema, tenderness - Neurological Exam Neurological exam: Present: alert, facial droop (R), speech deficit (non verbal) Additional comments: Left upper and lower extremity weakness 2/5 strength, unable to ascertain sensation without patient response, no overt pain based on exam, withdraws slightly to pinprick on left. Right upper and lower extremity strength 5/5. - Skin Skin exam: Present: dry, intact, normal color, warm. Absent: rash Internal Medicine - CN: Reslt - Labs CBC & Chem 7: 10/17/17 03:46 10/17/17 03:46 Labs: Short CBC 10/17/17 Range/Units 03:46 WBC 14.0 H (4.3-11.1) K/mcL Hgb 10.4 L (11.5-15.4) g/dL Hct 32.8 L (35.3-44.9) % Plt Count 130 L (140-400) K/mcL Neutrophils # 12.3 H (1.6-8.9) K/mcL BMP 10/17/17 03:46 Sodium 136 Potassium 5.1 Chloride 110 H Carbon Dioxide 19 L BUN 9 Creatinine 0.48 L Glucose 106 H Calcium 7.3 L Liver Function 10/17/17 Range/Units 03:46 Total Bilirubin 1.1 H (0.3-1.0) mg/dL AST 84 H (13-39) Units/L ALT 68 H (7-52) Units/L Alkaline Phosphatase 606 H (34-104) Units/L Albumin 2.6 L (3.5-5.7) g/dL - ABG Interpretation ABG results: PT/INR, D-dimer PT 16.5 Seconds (9.4-12.1) H 10/16/17 09:06 - Impressions Impressions Head CT 10/16/17 08:44 IMPRESSION: 1. No acute intracranial hemorrhage. Unchanged multiple areas of hypodensities within left cerebral hemisphere, compared to 10/12/2017. This appears new since 06/10/2017 brain MRI. This may represent subacute or chronic infarcts. No new cortical hypodensities identified. If there is persistent concern for acute ischemia, MRI may be obtained. 2. Unchanged cortical calcification within left posterior parietal lobe. Findings were discussed with Dr. Matthieu Correa at 8:55pm at the scanner on 10/16/2017. D/ / Curtis Rojo MD / Curtis Rojo MD Interpreting Provider: Curtis Rojo MD Brain MRI 10/16/17 09:17 IMPRESSION: 1. Multiple areas of restricted diffusion within bilateral cerebral and cerebellar hemispheres, most compatible with acute infarcts. 2. Increased vasogenic edema within the left frontal lobe when compared to previous brain MRI. There was an enhancing lesion in this region on the prior brain MRI. Given history of clival metastasis, recommend further evaluation with post-contrast imaging to evalute for interval change. 3. Small area of susceptibility artifact within superior aspect of the 4th ventricle corresponds to the enhancing mass seen on previous brain MRI. This may represent interval calcification or hemosiderin deposits within known metastases. 4. Unchanged susceptibility artifact corresponding to calcifications seen on brain MRI. These are also stable compared to previous brain MRI. There was enhancement in this region on 09/23/2017 MRI, and this may represent metastasis. 5. Redemonstration of large clivus mass, with expansion of the clivus. The findings were sent to the Radiology Results Communication [facility] to be communicated to a licensed caregiver. D/ / 10/16/2017 11:37:18 Curtis Rojo MD / earnololi Interpreting Provider: Curtis Rojo MD Neck MRA 10/16/17 09:18 IMPRESSION: Limited exam due to artifact from motion No focal significant vascular narrowing in the neck Occlusive change in the right M1 segment Lobular contour at the right carotid terminus. This likely represents volume averaging or artifact. A tiny aneurysm would be difficult to entirely exclude D/ / Myron Figueroa / Myron Figueroa Interpreting Provider: Myron Figueroa Head MRA 10/16/17 09:20 IMPRESSION: Limited exam due to artifact from motion No focal significant vascular narrowing in the neck Occlusive change in the right M1 segment Lobular contour at the right carotid terminus. This likely represents volume averaging or artifact. A tiny aneurysm would be difficult to entirely exclude D/ / Myron Figueroa / Myron Figueroa Interpreting Provider: Myron Figueroa Consult Discharge Plan - Plan Referrals: Rik Cisneros DO [Primary Care Provider] - Prescriptions: Cefdinir [Omnicef] 300 mg PO BID #14 capsule levoFLOXacin [Levaquin] 750 mg PO DAILY #7 tablet Palliative Quality Palliative Quality: Screen for Code Status: Yes, Screen for Goals of Care: Yes, Screen for Pain: Yes, If Pain Regimen Started, Initiate Bowel Regimen: Yes, Screen for Nausea/Vomitting: Yes Code Status: 10/12/17 18:05 Resuscitation Status: Active [RES] Routine Comment: Resuscitation Status: Full Code <Thony Chang Octavio - Last Filed: 10/17/17 12:35> Date of Encounter: 10/17/17 Palliative-CN HPI - Data of Consult Requesting Physician: Jose David Minaya Primary Care Provider: Rik Cisneros - Consult Narrative History of present illness: Ms. Liao is a 57 year old female CC: Jose David Minaya Palliative Care-Exam - Constitutional Vitals: Temp Pulse Resp BP Pulse Ox 97.8 F 102 14 120/86 95 10/17/17 06:45 10/17/17 06:45 10/17/17 06:45 10/17/17 06:45 10/17/17 06:45 Internal Medicine - CN: Reslt - Labs CBC & Chem 7: 10/17/17 03:46 10/17/17 03:46 Labs: Short CBC 10/17/17 Range/Units 03:46 WBC 14.0 H (4.3-11.1) K/mcL Hgb 10.4 L (11.5-15.4) g/dL Hct 32.8 L (35.3-44.9) % Plt Count 130 L (140-400) K/mcL Neutrophils # 12.3 H (1.6-8.9) K/mcL BMP 10/17/17 03:46 Sodium 136 Potassium 5.1 Chloride 110 H Carbon Dioxide 19 L BUN 9 Creatinine 0.48 L Glucose 106 H Calcium 7.3 L Liver Function 10/17/17 Range/Units 03:46 Total Bilirubin 1.1 H (0.3-1.0) mg/dL AST 84 H (13-39) Units/L ALT 68 H (7-52) Units/L Alkaline Phosphatase 606 H (34-104) Units/L Albumin 2.6 L (3.5-5.7) g/dL - ABG Interpretation ABG results: PT/INR, D-dimer PT 16.5 Seconds (9.4-12.1) H 10/16/17 09:06 - Impressions Impressions Brain MRI 10/16/17 09:17 IMPRESSION: 1. Multiple areas of restricted diffusion within bilateral cerebral and cerebellar hemispheres, most compatible with acute infarcts. 2. Increased vasogenic edema within the left frontal lobe when compared to previous brain MRI. There was an enhancing lesion in this region on the prior brain MRI. Given history of clival metastasis, recommend further evaluation with post-contrast imaging to evalute for interval change. 3. Small area of susceptibility artifact within superior aspect of the 4th ventricle corresponds to the enhancing mass seen on previous brain MRI. This may represent interval calcification or hemosiderin deposits within known metastases. 4. Unchanged susceptibility artifact corresponding to calcifications seen on brain MRI. These are also stable compared to previous brain MRI. There was enhancement in this region on 09/23/2017 MRI, and this may represent metastasis. 5. Redemonstration of large clivus mass, with expansion of the clivus. The findings were sent to the Radiology Results Communication [facility] to be communicated to a licensed caregiver. D/ / 10/16/2017 11:37:18 Curtis Rojo MD / earnold Interpreting Provider: Curtis Rojo MD - Attending Attestation I examined this patient and my medical decision-making was reviewed with the Resident Physician. I agree with the documented findings, disposition and treatment plan as described except to the extent set forth below. Palliative Quality Code Status: 10/12/17 18:05 Resuscitation Status: Active [RES] Routine Comment: Resuscitation Status: Full Code
--- NOTE | 2017-10-17 14:58 | Event Note ---
Date of Encounter: 10/17/17 Time of Encounter: 14:56 Returned back to visit patient to discuss code status as her current code status was Full Code. Patient was alert and awake and [id number] in room. Dr. Chang was present with myself in room. Patient does not wish to receive ventilator support/intubation or chest compressions/cardiac resuscitation knowing her current prognosis and situation. We have changed her code status to [id number] per patient's request.
[2017-10-17] MEDS: Lactobacillus 1 EACH CAP.SPRINK PO SCH (15:41)
[2017-10-17] MEDS: Magic Mouthwash 10 ML UD Cup PO SCH ×2 (15:41→15:44)
[2017-10-17] MEDS: Aspirin Enteric Coated 81 MG Tablet PO SCH (15:41)
[2017-10-17] MEDS: predniSONE 5 MG TABLET PO SCH ×2 (15:42→22:34)
[2017-10-17] MEDS: valACYclovir 500 MG TABLET PO SCH (15:42)
--- NOTE | 2017-10-17 18:07 | Internal Med Progress Note ---
Date of Encounter: 10/17/17 Time of Encounter: 11:00 - Assessment and plan (1) Ischemic stroke Current Visit: Yes Status: Acute Assessment and plan: -Patient with new onset of left sided facial droop with left upper extremity and left lower extremity weakness secondary to ischemic stroke -Recommendations from neurology for supportive care with rehabilitation with physical therapy at SNF -Discussed with social science analyst about qualifying patient for SNF (2) Urinary tract infection Current Visit: Yes Status: Acute Assessment and plan: Treatment course completed Qualifiers: Urinary tract infection type: acute cystitis Hematuria presence: without hematuria Qualified Code(s): N30.00 - Acute cystitis without hematuria (3) Lung cancer, primary, with metastasis from lung to other site Current Visit: Yes Status: Chronic Assessment and plan: -Oncology with recommendations for no further treatment at this time -Palliative care has been consulted Qualifiers: Laterality: left Qualified Code(s): C34.92 - Malignant neoplasm of unspecified part of left bronchus or lung (4) Hypokalemia Current Visit: Yes Status: Acute Assessment and plan: -Improving; continue supplementation as needed - Subjective Interval history: Patient resting comfortably this morning - Constitutional Vitals: Temp Pulse Resp BP Pulse Ox 97.9 F 115 14 127/91 91 10/17/17 15:00 10/17/17 15:00 10/17/17 15:00 10/17/17 15:00 10/17/17 15:00 General appearance: Present: cooperative, A&O X 3, pleasant, no acute distress, answers questions appropriately Internal Medicine: Result - Labs CBC & Chem 7: 10/17/17 03:46 10/17/17 03:46 Labs: Short CBC 10/17/17 Range/Units 03:46 WBC 14.0 H (4.3-11.1) K/mcL Hgb 10.4 L (11.5-15.4) g/dL Hct 32.8 L (35.3-44.9) % Plt Count 130 L (140-400) K/mcL Neutrophils # 12.3 H (1.6-8.9) K/mcL BMP 10/17/17 03:46 Sodium 136 Potassium 5.1 Chloride 110 H Carbon Dioxide 19 L BUN 9 Creatinine 0.48 L Glucose 106 H Calcium 7.3 L Liver Function 10/17/17 Range/Units 03:46 Total Bilirubin 1.1 H (0.3-1.0) mg/dL AST 84 H (13-39) Units/L ALT 68 H (7-52) Units/L Alkaline Phosphatase 606 H (34-104) Units/L Albumin 2.6 L (3.5-5.7) g/dL - ABG Interpretation ABG results: PT/INR, D-dimer PT 16.5 Seconds (9.4-12.1) H 10/16/17 09:06 - Impressions Impressions Brain MRI 10/16/17 09:17 IMPRESSION: 1. Multiple areas of restricted diffusion within bilateral cerebral and cerebellar hemispheres, most compatible with acute infarcts. 2. Increased vasogenic edema within the left frontal lobe when compared to previous brain MRI. There was an enhancing lesion in this region on the prior brain MRI. Given history of clival metastasis, recommend further evaluation with post-contrast imaging to evalute for interval change. 3. Small area of susceptibility artifact within superior aspect of the 4th ventricle corresponds to the enhancing mass seen on previous brain MRI. This may represent interval calcification or hemosiderin deposits within known metastases. 4. Unchanged susceptibility artifact corresponding to calcifications seen on brain MRI. These are also stable compared to previous brain MRI. There was enhancement in this region on 09/23/2017 MRI, and this may represent metastasis. 5. Redemonstration of large clivus mass, with expansion of the clivus. The findings were sent to the Radiology Results Communication Center to be communicated to a licensed caregiver. D/ / 10/16/2017 11:37:18 Curtis Rojo MD / earno Interpreting Provider: Curtis Rojo MD - VTE Documentation of Mechanical Device: Intermittent pneumatic compression device Consult Discharge Plan - Plan Referrals: Rik Cisneros DO [Primary Care Provider] - Prescriptions: Cefdinir [Omnicef] 300 mg PO BID #14 capsule levoFLOXacin [Levaquin] 750 mg PO DAILY #7 tablet
[2017-10-18] MEDS: *HR* Metoprolol 5 MG/5 ML VIAL IVP SCH ×5 (01:10→23:17)
[2017-10-18] MEDS: Hydrocortisone Sodium Succ 100 MG/2 ML VIAL IVP SCH ×2 (05:41→18:14)
[2017-10-18] MEDS: valACYclovir 500 MG TABLET PO SCH (07:36)
[2017-10-18] MEDS: Lactobacillus 1 EACH CAP.SPRINK PO SCH (07:36)
[2017-10-18] MEDS: Magic Mouthwash 10 ML UD Cup PO SCH ×3 (07:36→18:09)
[2017-10-18] MEDS: Aspirin Enteric Coated 81 MG Tablet PO SCH ×2 (07:36→18:17)
--- NOTE | 2017-10-18 18:06 | Internal Med Progress Note ---
Date of Encounter: 10/18/17 Time of Encounter: 11:00 - Assessment and plan (1) Ischemic stroke Current Visit: Yes Status: Acute Assessment and plan: -Patient with new onset of left sided facial droop with left upper extremity and left lower extremity weakness secondary to ischemic stroke -Recommendations from neurology for supportive care with rehabilitation with physical therapy at SNF -Discussed with director of social services about qualifying patient for SNF (2) Urinary tract infection Current Visit: Yes Status: Acute Assessment and plan: Treatment course completed Qualifiers: Urinary tract infection type: acute cystitis Hematuria presence: without hematuria Qualified Code(s): N30.00 - Acute cystitis without hematuria (3) Lung cancer, primary, with metastasis from lung to other site Current Visit: Yes Status: Chronic Assessment and plan: -Oncology with recommendations for no further treatment at this time -Palliative care has been consulted Qualifiers: Laterality: left Qualified Code(s): C34.92 - Malignant neoplasm of unspecified part of left bronchus or lung (4) Hypokalemia Current Visit: Yes Status: Acute Assessment and plan: -Improving; continue supplementation as needed - Subjective Interval history: Patient resting comfortably this morning - Constitutional Vitals: Temp Pulse Resp BP Pulse Ox 98.0 F 110 18 117/82 96 10/18/17 11:00 10/18/17 11:00 10/18/17 11:00 10/18/17 11:00 10/18/17 11:00 General appearance: Present: cooperative, A&O X 3, pleasant, no acute distress, answers questions appropriately - Neck Neck exam general surgery: Present: lymphadenopathy, supple, trachea midline - Respiratory Respiratory exam: Present: accessory muscle use, CTAB, rales, rhonchi, wheezes Internal Medicine: Result - Labs CBC & Chem 7: 10/17/17 03:46 10/17/17 03:46 - ABG Interpretation ABG results: PT/INR, D-dimer PT 16.5 Seconds (9.4-12.1) H 10/16/17 09:06 - VTE Documentation of Mechanical Device: Intermittent pneumatic compression device Consult Discharge Plan - Plan Referrals: ColRik edwards DO [Primary Care Provider] - Prescriptions: Cefdinir [Omnicef] 300 mg PO BID #14 capsule levoFLOXacin [Levaquin] 750 mg PO DAILY #7 tablet
[2017-10-19] MEDS: *HR* Metoprolol 5 MG/5 ML VIAL IVP SCH ×4 (05:07→23:55)
[2017-10-19] MEDS: Hydrocortisone Sodium Succ 100 MG/2 ML VIAL IVP SCH ×2 (05:08→18:13)
[2017-10-19] MEDS: Lactobacillus 1 EACH CAP.SPRINK PO SCH (08:42)
[2017-10-19] MEDS: valACYclovir 500 MG TABLET PO SCH (08:42)
[2017-10-19] MEDS: Aspirin Enteric Coated 81 MG Tablet PO SCH (08:42)
[2017-10-19] MEDS: Magic Mouthwash 10 ML UD Cup PO SCH ×3 (08:42→18:12)
--- NOTE | 2017-10-19 16:35 | Internal Med Progress Note ---
Date of Encounter: 10/19/17 Time of Encounter: 08:00 - Assessment and plan (1) Ischemic stroke Current Visit: Yes Status: Acute Assessment and plan: -Patient with new onset of left sided facial droop with left upper extremity and left lower extremity weakness secondary to ischemic stroke -Recommendations from neurology for supportive care with rehabilitation with physical therapy at SNF -Discussed with social media content manager about qualifying patient for SNF (2) Urinary tract infection Current Visit: Yes Status: Acute Assessment and plan: Treatment course completed Qualifiers: Urinary tract infection type: acute cystitis Hematuria presence: without hematuria Qualified Code(s): N30.00 - Acute cystitis without hematuria (3) Lung cancer, primary, with metastasis from lung to other site Current Visit: Yes Status: Chronic Assessment and plan: -Oncology with recommendations for no further treatment at this time -Palliative care has been consulted Qualifiers: Laterality: left Qualified Code(s): C34.92 - Malignant neoplasm of unspecified part of left bronchus or lung (4) Hypokalemia Current Visit: Yes Status: Acute Assessment and plan: -Improving; continue supplementation as needed - Subjective Interval history: Patient resting comfortably this morning - Constitutional Vitals: Temp Pulse Resp BP Pulse Ox 97.9 F 113 16 131/82 94 10/19/17 08:00 10/19/17 12:36 10/19/17 12:36 10/19/17 12:36 10/19/17 08:00 General appearance: Present: cooperative, A&O X 3, pleasant, no acute distress, answers questions appropriately - Cardiovascular Cardiovascular exam: Present: RRR, +S1, +S2. Absent: diastolic murmur, gallop, rubs, systolic murmur Internal Medicine: Result - Labs CBC & Chem 7: 10/17/17 03:46 10/17/17 03:46 - ABG Interpretation ABG results: PT/INR, D-dimer PT 16.5 Seconds (9.4-12.1) H 10/16/17 09:06 - VTE Documentation of Mechanical Device: Intermittent pneumatic compression device Consult Discharge Plan - Plan Referrals: Rik Cisneros DO [Primary Care Provider] - Prescriptions: Cefdinir [Omnicef] 300 mg PO BID #14 capsule levoFLOXacin [Levaquin] 750 mg PO DAILY #7 tablet
[2017-10-20] MEDS: *HR* Metoprolol 5 MG/5 ML VIAL IVP SCH ×4 (06:30→23:33)
[2017-10-20] MEDS: Hydrocortisone Sodium Succ 100 MG/2 ML VIAL IVP SCH ×2 (06:30→16:45)
[2017-10-20] MEDS: Magic Mouthwash 10 ML UD Cup PO SCH ×3 (08:26→16:45)
[2017-10-20] MEDS: Aspirin Enteric Coated 81 MG Tablet PO SCH (08:27)
[2017-10-20] MEDS: valACYclovir 500 MG TABLET PO SCH (08:27)
[2017-10-20] MEDS: Lactobacillus 1 EACH CAP.SPRINK PO SCH (08:27)
[2017-10-20 09:07] LABS: Basophils % 0.1 %; Eosinophils # 0.1 K/mcL (0.0-0.6); Eosinophils % 0.6 %; Hematocrit 33.8 % (35.3-44.9); Hemoglobin 10.5 g/dL (11.5-15.4); Immature Granulocytes % 1.4 % (0-4); Lymphocytes # 0.4 K/mcL (0.6-4.6); Lymphocytes % 2.6 %; Mean Corpuscular HGB Conc 31.1 g/dL (31.6-35.5); Mean Corpuscular Hemoglobin 29.8 pg (28.0-33.3); Mean Platelet Volume 11.2 fL (9.4-12.4); Monocytes # 0.8 K/mcL (0.0-1.3); Monocytes % 4.9 %; Neutrophils # 14.5 K/mcL (1.6-8.9); Platelet Count 128 K/mcL (140-400); Red Blood Count 3.52 M/mcL (3.82-4.97); Red Cell Distribution Width 19.2 % (11.5-14.5); Segmented Neutrophils % 90.4 %
[2017-10-20 09:21] LABS: BUN/Creatinine Ratio 40 (6-26); Blood Urea Nitrogen 16 mg/dL (6-20); Calcium 6.8 mg/dL (8.6-10.3); Carbon Dioxide 21 mEq/L (23-29); Chloride 110 mEq/L (98-107); Glucose 122 mg/dL (70-105); Osmolality,Calculated 286 (280-300); Potassium 4.4 mEq/L (3.5-5.1); Sodium 137 mEq/L (136-145); eGFR For African Americans > 60 (> 60); eGFR For Non-African Americans > 60 (> 60)
--- NOTE | 2017-10-20 11:27 | Internal Med Progress Note ---
Date of Encounter: 10/20/17 Time of Encounter: 09:00 - Assessment and plan (1) Ischemic stroke Current Visit: Yes Status: Acute Assessment and plan: -Patient with new onset of left sided facial droop with left upper extremity and left lower extremity weakness secondary to ischemic stroke -MRI of brain on 10/16/17 showed multiple areas of restricted diffusion within bilateral cerebral and cerebellar hemispheres, most compatible with acute infarcts. Additional findings showed increased vasogenic edema within the left frontal lobe when compared to previous brain MRI in addition to an enhancing lesion in this region on the prior brain MRI. -Recommendations from neurology for supportive care with rehabilitation with physical therapy at [facility] -Plans are for placement to per PT recommendations SNF (2) Urinary tract infection Current Visit: Yes Status: Resolved Assessment and plan: Resolved;treatment course completed Qualifiers: Urinary tract infection type: acute cystitis Hematuria presence: without hematuria Qualified Code(s): N30.00 - Acute cystitis without hematuria (3) Lung cancer, primary, with metastasis from lung to other site Current Visit: Yes Status: Chronic Assessment and plan: -Due to significant neurological limitations from CVA, Oncology recommends no further treatment at this time. -Palliative care following Qualifiers: Laterality: left Qualified Code(s): C34.92 - Malignant neoplasm of unspecified part of left bronchus or lung (4) Hypokalemia Current Visit: Yes Status: Resolved Assessment and plan: -Resolved; continue to monitor (5) Hypocalcemia Current Visit: No Status: Resolved Assessment and plan: -Replacements given - Subjective Interval history: Patient this morning now more alert/oriented and interacting compared with her onset of new CVA 4 days ago. Continuing with physical therapy but having difficulty moving her left upper and left lower extremities. Plan for placement at SNF - Constitutional Vitals: Temp Pulse Resp BP Pulse Ox 98.1 F 93 19 137/78 96 10/20/17 07:21 10/20/17 07:21 10/20/17 07:21 10/20/17 07:21 10/20/17 07:21 General appearance: Present: cooperative, A&O X 3, pleasant, no acute distress, answers questions appropriately - Respiratory Respiratory exam: Present: CTAB. Absent: accessory muscle use, rales, rhonchi, wheezes - Cardiovascular Cardiovascular exam: Present: RRR, +S1, +S2. Absent: diastolic murmur, gallop, rubs, systolic murmur Internal Medicine: Result - Labs CBC & Chem 7: 10/20/17 08:51 10/20/17 08:51 Labs: Short CBC 10/20/17 Range/Units 08:51 WBC 16.1 H (4.3-11.1) K/mcL Hgb 10.5 L (11.5-15.4) g/dL Hct 33.8 L (35.3-44.9) % Plt Count 128 L (140-400) K/mcL Neutrophils # 14.5 H (1.6-8.9) K/mcL BMP 10/20/17 08:51 Sodium 137 Potassium 4.4 Chloride 110 H Carbon Dioxide 21 L BUN 16 Creatinine 0.40 L Glucose 122 H Calcium 6.8 L - ABG Interpretation ABG results: PT/INR, D-dimer PT 16.5 Seconds (9.4-12.1) H 10/16/17 09:06 - VTE Documentation of Mechanical Device: Intermittent pneumatic compression device Consult Discharge Plan - Plan Referrals: Rik Cisneros DO [Primary Care Provider] - Prescriptions: Cefdinir [Omnicef] 300 mg PO BID #14 capsule levoFLOXacin [Levaquin] 750 mg PO DAILY #7 tablet
[2017-10-20] MEDS ORDERED: Calcium Gluconate 1,000 MG in D5% in Water 100 ML IVPB ONE (11:41)
[2017-10-20] MEDS: Potassium Chloride Elixir 20 MEQ/15 ML UDC PO SCH (20:35)
[2017-10-21] MEDS: Hydrocortisone Sodium Succ 100 MG/2 ML VIAL IVP SCH (05:16)
[2017-10-21 05:46] LABS: Magnesium 2.2 mg/dL (1.6-2.6); Phosphorous 1.1 mg/dL (2.7-4.5)
[2017-10-21] MEDS: *HR* Enoxaparin 40 MG/0.4 ML SYRINGE SQ SCH (09:33)
[2017-10-21] MEDS: Magic Mouthwash 10 ML UD Cup PO SCH ×3 (09:39→16:02)
[2017-10-21] MEDS: *HR* Metoprolol 5 MG/5 ML VIAL IVP SCH ×2 (09:39→11:34)
[2017-10-21] MEDS: Potassium Chloride Elixir 20 MEQ/15 ML UDC PO SCH (09:39)
[2017-10-21] MEDS: Aspirin Enteric Coated 81 MG Tablet PO SCH (09:39)
[2017-10-21] MEDS: Lactobacillus 1 EACH CAP.SPRINK PO SCH (09:43)
[2017-10-21] MEDS: valACYclovir 500 MG TABLET PO SCH (09:43)
[2017-10-21] MEDS ORDERED: Ipratropium/Albuterol Neb 3 ML IH PRN (11:29)
--- NOTE | 2017-10-21 12:38 | Palliative Progress Note ---
Date of Encounter: 10/21/17 Time of Encounter: 09:20 - Assessment and plan (1) Bone metastases Current Visit: No Status: Chronic Assessment and plan: No further cancer care is available to the patient due to the overall condition plus the CVA. However at this time she does seem to be stable (2) Goals of care, counseling/discussion Current Visit: Yes Status: Acute Assessment and plan: DNR a DNI, patient certainly does meet hospice criteria, however I believe that she will get better when occupational therapy delaying hospice until after rehabilitation for her CVA. At that time she is certainly hospice eligible would benefit due to the fact she has metastatic cancer for which therapy is not really indicated any further. (3) Ischemic stroke Current Visit: Yes Status: Acute Assessment and plan: Plan is to go out for a goals occupational therapy. The patient has improved enough that I believe that she will do well with this. Her completing the physical and occupational therapy she would certainly be able to go into hospice for her cancer. (4) Lung cancer, primary, with metastasis from lung to other site Current Visit: Yes Status: Chronic Assessment and plan: Her overall comorbidities there does not appear to be any further cancer therapy available to her. She will certainly be a little avail himself of hospice after she completes her have for her CVA. Qualifiers: Laterality: left Qualified Code(s): C34.92 - Malignant neoplasm of unspecified part of left bronchus or lung - Time Spent With Patient Total time spent is greater than 50% in coordination of care (as documented) at patient's floor/unit and/or counseling patient: - Subjective Interval history: The patient is doing well this morning. She is more talkative moving better, and trying to eat. The pureed diets not doing well for her, however is drinking Ensure and is willing to try Magic cups. Complaints of this morning see the assessment and plan - Constitutional Vitals: Abnormal lab results WBC 16.1 K/mcL (4.3-11.1) H 10/20/17 08:51 RBC 3.52 M/mcL (3.82-4.97) L 10/20/17 08:51 Hgb 10.5 g/dL (11.5-15.4) L 10/20/17 08:51 Hct 33.8 % (35.3-44.9) L 10/20/17 08:51 MCHC 31.1 g/dL (31.6-35.5) L 10/20/17 08:51 RDW 19.2 % (11.5-14.5) H 10/20/17 08:51 Plt Count 128 K/mcL (140-400) L 10/20/17 08:51 Neutrophils # 14.5 K/mcL (1.6-8.9) H 10/20/17 08:51 Lymphocytes # 0.4 K/mcL (0.6-4.6) L 10/20/17 08:51 Reactive Lymphocytes Present (Not Present) A 10/12/17 14:03 Immature Plt Fraction 6.3 % (1.1-6.1) H 10/17/17 03:46 Polychromasia 1+ (Not Present) A 10/12/17 14:03 Anisocytosis 1+ (Not Present) A 10/12/17 14:03 PT 16.5 Seconds (9.4-12.1) H 10/16/17 09:06 Chloride 110 mEq/L (98-107) H 10/20/17 08:51 Carbon Dioxide 21 mEq/L (23-29) L 10/20/17 08:51 Creatinine 0.40 mg/dL (0.60-1.20) L 10/20/17 08:51 BUN/Creatinine Ratio 40 (6-26) H 10/20/17 08:51 Glucose 122 mg/dL (70-105) H 10/20/17 08:51 POC Glucose 105 (58-89) H 10/18/17 12:02 Calcium 6.8 mg/dL (8.6-10.3) L 10/20/17 08:51 Phosphorus 1.1 mg/dL (2.7-4.5) L 10/21/17 05:05 Total Bilirubin 1.1 mg/dL (0.3-1.0) H 10/17/17 03:46 AST 84 Units/L (13-39) H 10/17/17 03:46 ALT 68 Units/L (7-52) H 10/17/17 03:46 Alkaline Phosphatase 606 Units/L (34-104) H 10/17/17 03:46 Troponin I 1.19 ng/mL (0-0.03) H* 10/13/17 03:06 Serum Total Protein 5.0 g/dL (6.4-8.9) L 10/17/17 03:46 Albumin 2.6 g/dL (3.5-5.7) L 10/17/17 03:46 Triglycerides 245 mg/dL (< 150) H 10/13/17 03:06 VLDL Cholesterol, Calc 49 mg/dL (< 31) H 10/13/17 03:06 HDL Cholesterol 7 mg/dL (40-59) L 10/13/17 03:06 Cholesterol/HDL Ratio 20.4 (0-4.9) H 10/13/17 03:06 Urine Clarity Cloudy (Clear) A 10/12/17 13:43 Urine Protein 100 mg/dL (Neg-Trace) H 10/12/17 13:43 Urine Ketones 80 mg/dL (Negative) H 10/12/17 13:43 Urine Bilirubin Small (Negative) H 10/12/17 13:43 Ur Leukocyte Esterase Trace (Negative) H 10/12/17 13:43 Urine Microscopic WBC 15-30 per hpf (0-3) H 10/12/17 13:43 Ur Squamous Epith Cells Many per lpf (None-Few) H 10/12/17 13:43 Urine Bacteria Moderate per hpf (None-Few) H 10/12/17 13:43 Urine Mucus Many (Few) H 10/12/17 13:43 General appearance: Present: no acute distress - Head Head exam: Present: atraumatic, normal inspection - Eye Eye exam: Present: normal appearance - ENT ENT exam: Present: mucous membranes moist - Respiratory Respiratory exam: Present: decreased breath sounds - Cardiovascular Cardiovascular exam: Present: RRR - GI/Abdominal GI/Abdominal exam: Present: normal bowel sounds, soft. Absent: tenderness - Extremities Exam Extremities exam: Present: normal inspection. Absent: tenderness - Neurological Exam Neurological exam: Present: alert, motor sensory deficit (Left side) - Psychiatric Psychiatric exam: Present: normal affect, normal mood. Absent: agitated, anxious - Skin Skin exam: Present: dry, warm Palliative Quality Palliative Quality: Screen for Code Status: Yes, Screen for Goals of Care: Yes, Screen for Pain: Yes, If Pain Regimen Started, Initiate Bowel Regimen: Yes, Screen for Nausea/Vomitting: Yes Code Status: 10/12/17 18:05 Resuscitation Status: Active [RES] Routine Comment: Resuscitation Status: Full Code 10/17/17 14:55 CODE [Resuscitation Status: Active] [RES] Routine Comment: Resuscitation Status: [id number] - Labs CBC & Chem 7: 10/20/17 08:51 10/20/17 08:51 Labs: Laboratory Results - last 24 hr 10/20/17 10/21/17 18:28 05:05 Phosphorus 1.1 L Magnesium 2.2 Stl C. diff Tox B Gene Negative - ABG Interpretation ABG results: PT/INR, D-dimer PT 16.5 Seconds (9.4-12.1) H 10/16/17 09:06 Consult Discharge Plan - Plan Referrals: ColopyRik DO [Primary Care Provider] - Prescriptions: Cefdinir [Omnicef] 300 mg PO BID #14 capsule levoFLOXacin [Levaquin] 750 mg PO DAILY #7 tablet
--- NOTE | 2017-10-21 14:58 | Internal Med Progress Note ---
Date of Encounter: 10/21/17 Time of Encounter: 08:30 - Assessment and plan (1) Ischemic stroke Current Visit: Yes Status: Acute Assessment and plan: Improving Still has weakness in Left side of body and mild speech abnormality Neuro recommend for supportive care and rehab PT / OT on board cont ASA Waiting on Short term rehab placement (2) Lung cancer, primary, with metastasis from lung to other site Current Visit: Yes Status: Chronic Assessment and plan: Due to significant neurological limitations from CVA, Oncology recommends no further treatment at this time. Palliative care following Need to f/u with Heme Onc as an out pt Qualifiers: Laterality: left Qualified Code(s): C34.92 - Malignant neoplasm of unspecified part of left bronchus or lung (3) Metastatic cancer to brain Current Visit: Yes Status: Chronic (4) Hypokalemia Current Visit: Yes Status: Resolved Assessment and plan: Resolved; continue to monitor (5) Hypocalcemia Current Visit: No Status: Resolved Assessment and plan: resolved (6) Urinary tract infection Current Visit: Yes Status: Acute Assessment and plan: finished full course of Abx Qualifiers: Urinary tract infection type: site unspecified Hematuria presence: without hematuria Qualified Code(s): N39.0 - Urinary tract infection, site not specified (7) NSTEMI (non-ST elevated myocardial infarction) Current Visit: Yes Status: Acute Assessment and plan: Due to demand ischemia Card recommend ASA and low dose B vidya unable to give statin due to liver mets (8) Non-small cell carcinoma of lung Current Visit: Yes Status: Chronic Qualifiers: Laterality: unspecified laterality Qualified Code(s): C34.90 - Malignant neoplasm of unspecified part of unspecified bronchus or lung - Subjective Interval history: Ms. 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 Patient arrived to [facility] on 10/12/17 with chief complaint of generalized weakness, fatigue, and altered mental status. Of note she was recently discharged from the hospital last week on 10/09/17 after being treated for sepsis secondary to UTI. According to family members, patient states that when she went home after her radiation treatment, she slept for a long period of time and never completed the course of antibiotics that she was sent home with. she came back to the hospital for sepsis secondary to UTI. blood cultures are negative. Patient also had elevated troponins upon admission. she was evaluated by cardiology. they recommended continuing aspirin and low dose beta vidya. it was not recommended that she use Statin therapy because of her liver mets. Patient was ready for discharge this morning. However, she was found to have left sided facial drooping and stroke alert was called. Her MRI of brain came back as multiple areas of decreased diffusion bilateral in cerebral and cerebellar area representing acute infarcts. Pt is alert ,awake and O x 3 today. Denied any CP / SOB. Still looks weak and lethargic. - Constitutional Vitals: Temp Pulse Resp BP Pulse Ox 98.9 F 118 21 145/94 96 10/21/17 04:46 10/21/17 11:00 10/21/17 11:52 10/21/17 11:00 10/21/17 11:52 General appearance: Present: cooperative, A&O X 3, pleasant, no acute distress, answers questions appropriately - Head Head exam: Present: atraumatic, normal inspection - Neck Neck exam general surgery: Present: supple - Respiratory Respiratory exam: Present: decreased breath sounds, wheezes (mild). Absent: rales, respiratory distress, rhonchi - Cardiovascular Cardiovascular exam: Present: RRR, +S1, +S2. Absent: tachycardia - GI/Abdominal GI/Abdominal exam: Present: normal bowel sounds, soft. Absent: rebound, rigid, tenderness - Extremities Exam Extremities exam: Absent: calf tenderness, pedal edema, tenderness - Back Exam Back exam: Absent: CVA tenderness (L), CVA tenderness (R) - Neurological Exam Neurological exam: Present: alert, motor sensory deficit (Significant deficit on Left side both LUE and LLE), oriented X3 - Psychiatric Psychiatric exam: Present: depressed Internal Medicine: Result - Labs CBC & Chem 7: 10/20/17 08:51 10/20/17 08:51 - ABG Interpretation ABG results: PT/INR, D-dimer PT 16.5 Seconds (9.4-12.1) H 10/16/17 09:06 - VTE Documentation of Mechanical Device: Intermittent pneumatic compression device Consult Discharge Plan - Plan Referrals: Rik Cisneros DO [Primary Care Provider] - Prescriptions: Cefdinir [Omnicef] 300 mg PO BID #14 capsule levoFLOXacin [Levaquin] 750 mg PO DAILY #7 tablet
[2017-10-22] MEDS: *HR* Enoxaparin 40 MG/0.4 ML SYRINGE SQ SCH (05:08)
[2017-10-22] MEDS ORDERED: 0.9 % Sodium Chloride 500 ML IVC ONE ×2 (08:32→12:42)
[2017-10-22] MEDS ORDERED: 0.9 % Sodium Chloride 500 ML ONE (08:36)
--- NOTE | 2017-10-22 08:41 | Internal Med Progress Note ---
Date of Encounter: 10/22/17 Time of Encounter: 08:20 - Assessment and plan (1) Ischemic stroke Current Visit: Yes Status: Acute Assessment and plan: Improving Still has weakness in Left side of body and mild speech abnormality Neuro recommend for supportive care and rehab PT / OT on board cont ASA Unable to give statin due to mets in liver Waiting on in pt rehab transfer She is not stable enough to d/c today due to her sinus tachycardia..will continue her on tele and higher level of care for now (2) Sinus tachycardia Current Visit: Yes Status: Acute Assessment and plan: She does have chronic tachycardia however current episode seems to be due to dehydration and intra vascular volume depleted will give her NS bolus x 1 Gave her cardizem 20mg IV x 1 dose inc Metoprolol to 25mg BID cont close monitoring high risk for cardiac compromise (3) Lung cancer, primary, with metastasis from lung to other site Current Visit: Yes Status: Chronic Assessment and plan: Due to significant neurological limitations from CVA, Oncology recommends no further treatment at this time. Palliative care following Need to f/u with Heme Onc as an out pt Qualifiers: Laterality: left Qualified Code(s): C34.92 - Malignant neoplasm of unspecified part of left bronchus or lung (4) Metastatic cancer to brain Current Visit: Yes Status: Chronic (5) Hypokalemia Current Visit: Yes Status: Resolved Assessment and plan: Resolved; continue to monitor (6) Hypocalcemia Current Visit: No Status: Resolved Assessment and plan: resolved (7) Urinary tract infection Current Visit: Yes Status: Acute Assessment and plan: finished full course of Abx Qualifiers: Urinary tract infection type: site unspecified Hematuria presence: without hematuria Qualified Code(s): N39.0 - Urinary tract infection, site not specified (8) NSTEMI (non-ST elevated myocardial infarction) Current Visit: Yes Status: Acute Assessment and plan: Due to demand ischemia Card recommend ASA and low dose B vidya unable to give statin due to liver mets (9) Non-small cell carcinoma of lung Current Visit: Yes Status: Chronic Qualifiers: Laterality: unspecified laterality Qualified Code(s): C34.90 - Malignant neoplasm of unspecified part of unspecified bronchus or lung - Subjective Interval history: Ms. 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 Patient arrived to [facility] on 10/12/17 with chief complaint of generalized weakness, fatigue, and altered mental status. Of note she was recently discharged from the hospital last week on 10/09/17 after being treated for sepsis secondary to UTI. According to family members, patient states that when she went home after her radiation treatment, she slept for a long period of time and never completed the course of antibiotics that she was sent home with. she came back to the hospital for sepsis secondary to UTI. blood cultures are negative. Patient also had elevated troponins upon admission. she was evaluated by cardiology. they recommended continuing aspirin and low dose beta vidya. it was not recommended that she use Statin therapy because of her liver mets. Patient was ready for discharge this morning. However, she was found to have left sided facial drooping and stroke alert was called. Her MRI of brain came back as multiple areas of decreased diffusion bilateral in cerebral and cerebellar area representing acute infarcts. Pt is alert ,awake and O x 3 today. Denied any CP, however she does have some POWERS, Cough with no expectoration. Still looks weak and lethargic. She seems to be in sinus tachycardia now - Constitutional Vitals: Temp Pulse Resp BP Pulse Ox 97.9 F 127 18 138/84 95 10/22/17 01:14 10/22/17 01:14 10/22/17 01:14 10/22/17 01:14 10/22/17 01:14 General appearance: Present: cooperative, A&O X 3 (looks weak and lethargic), answers questions appropriately - Head Head exam: Present: atraumatic, normal inspection - Neck Neck exam general surgery: Present: supple - Respiratory Respiratory exam: Present: decreased breath sounds, rhonchi (mild), wheezes ( mild). Absent: rales, respiratory distress - Cardiovascular Cardiovascular exam: Present: +S1, +S2, tachycardia. Absent: systolic murmur - GI/Abdominal GI/Abdominal exam: Present: normal bowel sounds, soft. Absent: rebound, rigid, tenderness - Extremities Exam Extremities exam: Absent: calf tenderness, pedal edema, tenderness - Back Exam Back exam: Absent: CVA tenderness (L), CVA tenderness (R) - Neurological Exam Neurological exam: Present: alert, motor sensory deficit (more significnat in LUE and LLE), oriented X3. Absent: facial droop, speech deficit - Psychiatric Psychiatric exam: Present: anxious, depressed Internal Medicine: Result - Labs CBC & Chem 7: 10/20/17 08:51 10/20/17 08:51 - ABG Interpretation ABG results: PT/INR, D-dimer PT 16.5 Seconds (9.4-12.1) H 10/16/17 09:06 - VTE Documentation of Mechanical Device: Intermittent pneumatic compression device Consult Discharge Plan - Plan Referrals: Rik Cisneros DO [Primary Care Provider] - Prescriptions: Cefdinir [Omnicef] 300 mg PO BID #14 capsule levoFLOXacin [Levaquin] 750 mg PO DAILY #7 tablet
[2017-10-22] MEDS: Lactobacillus 1 EACH CAP.SPRINK PO SCH (08:51)
[2017-10-22] MEDS: valACYclovir 500 MG TABLET PO SCH (08:51)
[2017-10-22] MEDS: Aspirin Enteric Coated 81 MG Tablet PO SCH (08:51)
[2017-10-22] MEDS: Magic Mouthwash 10 ML UD Cup PO SCH ×3 (08:51→15:30)
[2017-10-22 09:12] LABS: Hematocrit 43.7 % (35.3-44.9); Mean Corpuscular HGB Conc 31.1 g/dL (31.6-35.5); Mean Corpuscular Hemoglobin 29.6 pg (28.0-33.3); Mean Platelet Volume 11.4 fL (9.4-12.4); Nucleated Red Blood Cells 0.2 /100 WBC (0); Platelet Count 188 K/mcL (140-400); Red Cell Distribution Width 19.6 % (11.5-14.5)
[2017-10-22 09:16] LABS: Hemoglobin 13.6 g/dL (11.5-15.4)
[2017-10-22 09:31] LABS: BUN/Creatinine Ratio 25 (6-26); Blood Urea Nitrogen 12 mg/dL (6-20); Calcium 5.5 mg/dL (8.6-10.3); Carbon Dioxide 13 mEq/L (23-29); Chloride 117 mEq/L (98-107); Glucose 107 mg/dL (70-105); Magnesium 1.8 mg/dL (1.6-2.6); Osmolality,Calculated 290 (280-300); Phosphorous 1.6 mg/dL (2.7-4.5); Potassium 3.9 mEq/L (3.5-5.1); Sodium 140 mEq/L (136-145); eGFR For African Americans > 60 (> 60); eGFR For Non-African Americans > 60 (> 60)
[2017-10-22 10:02] LABS: Large Platelets Present (Not Present); Neutrophils # 29.5 K/mcL (1.6-8.9); Platelet Estimate Normal (Normal); Polychromasia 1+ (Not Present)
[2017-10-22] MEDS ORDERED: 0.9 % Sodium Chloride 1,000 ML IVC SCH (10:45)
--- NOTE | 2017-10-22 10:57 | Palliative Progress Note ---
Date of Encounter: 10/22/17 Time of Encounter: 09:30 - Assessment and plan (1) Goals of care, counseling/discussion Current Visit: Yes Status: Acute Assessment and plan: Patient with B/P 97/43, bilateral rhonchi, SOB, and tachycardia, rate 100s - 150s. Current code status DNRCC - A, DNI. Recent CVA with left sided weakness. Patient with poor po intake with protein 5.0 and Albumin 2.6. WBC 33.5 and Neutrophils 29.5. Patient with Metastatic lung Ca to brain and liver. Fluid intake deficit. Current goal is for patient to transition to rehab for recent CVA but now with changes to condition. CXR pending. Will update family on status. Case discussed with Dr. Rodriguez. Will follow closely. (2) Lung cancer, primary, with metastasis from lung to other site Current Visit: Yes Status: Chronic Qualifiers: Laterality: left Qualified Code(s): C34.92 - Malignant neoplasm of unspecified part of left bronchus or lung (3) Ischemic stroke Current Visit: Yes Status: Acute - Time Spent With Patient Total time spent is greater than 50% in coordination of care (as documented) at patient's floor/unit and/or counseling patient: less than 15 minutes - Subjective Interval history: Patient sitting up in bed. Pulse 162, Temp 99.3, SOB with bilateral scattered rhonchi. Patient with slurred speech. Previous CVA. No family at bedside. - Constitutional Vitals: Abnormal lab results WBC 33.5 K/mcL (4.3-11.1) H* D 10/22/17 08:30 MCHC 31.1 g/dL (31.6-35.5) L 10/22/17 08:30 RDW 19.6 % (11.5-14.5) H 10/22/17 08:30 Neutrophils # 29.5 K/mcL (1.6-8.9) H 10/22/17 08:30 Monocytes # 2.0 K/mcL (0.0-1.3) H 10/22/17 08:30 Nucleated RBCs/100 WBC 0.2 /100 WBC (0) H 10/22/17 08:30 Reactive Lymphocytes Present (Not Present) A 10/12/17 14:03 Large Platelets Present (Not Present) A 10/22/17 08:30 Immature Plt Fraction 6.3 % (1.1-6.1) H 10/17/17 03:46 Polychromasia 1+ (Not Present) A 10/22/17 08:30 Anisocytosis 1+ (Not Present) A 10/12/17 14:03 PT 16.5 Seconds (9.4-12.1) H 10/16/17 09:06 Chloride 117 mEq/L (98-107) H 10/22/17 08:30 Carbon Dioxide 13 mEq/L (23-29) L 10/22/17 08:30 Creatinine 0.48 mg/dL (0.60-1.20) L 10/22/17 08:30 Glucose 107 mg/dL (70-105) H 10/22/17 08:30 POC Glucose 105 (58-89) H 10/18/17 12:02 Calcium 5.5 mg/dL (8.6-10.3) L* 10/22/17 08:30 Phosphorus 1.6 mg/dL (2.7-4.5) L 10/22/17 08:30 Total Bilirubin 1.1 mg/dL (0.3-1.0) H 10/17/17 03:46 AST 84 Units/L (13-39) H 10/17/17 03:46 ALT 68 Units/L (7-52) H 10/17/17 03:46 Alkaline Phosphatase 606 Units/L (34-104) H 10/17/17 03:46 Troponin I 1.19 ng/mL (0-0.03) H* 10/13/17 03:06 Serum Total Protein 5.0 g/dL (6.4-8.9) L 10/17/17 03:46 Albumin 2.6 g/dL (3.5-5.7) L 10/17/17 03:46 Triglycerides 245 mg/dL (< 150) H 10/13/17 03:06 VLDL Cholesterol, Calc 49 mg/dL (< 31) H 10/13/17 03:06 HDL Cholesterol 7 mg/dL (40-59) L 10/13/17 03:06 Cholesterol/HDL Ratio 20.4 (0-4.9) H 10/13/17 03:06 Urine Clarity Cloudy (Clear) A 10/12/17 13:43 Urine Protein 100 mg/dL (Neg-Trace) H 10/12/17 13:43 Urine Ketones 80 mg/dL (Negative) H 10/12/17 13:43 Urine Bilirubin Small (Negative) H 10/12/17 13:43 Ur Leukocyte Esterase Trace (Negative) H 10/12/17 13:43 Urine Microscopic WBC 15-30 per hpf (0-3) H 10/12/17 13:43 Ur Squamous Epith Cells Many per lpf (None-Few) H 10/12/17 13:43 Urine Bacteria Moderate per hpf (None-Few) H 10/12/17 13:43 Urine Mucus Many (Few) H 10/12/17 13:43 - Head Head exam: Present: atraumatic, normal inspection - Eye Eye exam: Present: PERRL Pupils: Present: PERRL - ENT ENT exam: Present: mucous membranes dry - Neck Neck exam: Present: tenderness - Respiratory Respiratory exam: Present: rhonchi, tachypnea - Expanded Respiratory Exam Location: rhonchi: Left, Right, Upper - Cardiovascular Cardiovascular exam: Present: RRR, +S1, +S2, tachycardia - Expanded Cardiovascular Exam Peripheral pulses: 1+: Femoral (L) PM, Femoral (R) PM, Posterior Tibialis (L), Posterior Tibialis (R), Dorsalis Pedis (L) PM, Dorsalis Pedis (R) PM, 2+: Carotid (L) PM, Carotid (R) PM, Radial (L), Radial (R) - GI/Abdominal GI/Abdominal exam: Present: normal bowel sounds, soft - Rectal Rectal exam: Present: deferred - Extremities Exam Extremities exam: Present: tenderness (cool lower legs, left sided weakness) - Neurological Exam Neurological exam: Present: alert, speech deficit (garbled) - Psychiatric Psychiatric exam: Present: normal affect - Skin Skin exam: Present: pallor (cool) Palliative Quality Palliative Quality: Screen for Code Status: Yes, Screen for Goals of Care: Yes, Screen for Pain: Yes, If Pain Regimen Started, Initiate Bowel Regimen: Yes, Screen for Nausea/Vomitting: Yes Code Status: 10/12/17 18:05 Resuscitation Status: Active [RES] Routine Comment: Resuscitation Status: Full Code 10/17/17 14:55 CODE [Resuscitation Status: Active] [RES] Routine Comment: Resuscitation Status: [id number] - Labs CBC & Chem 7: 10/22/17 08:30 10/22/17 08:30 Labs: Laboratory Results - last 24 hr 10/22/17 10/22/17 08:30 08:30 WBC 33.5 H* D RBC 4.60 Hgb 13.6 D Hct 43.7 MCV 95.0 MCH 29.6 MCHC 31.1 L RDW 19.6 H Plt Count 188 MPV 11.4 Seg Neutrophils % 86.0 Band Neutrophils % 2.0 Lymphocytes % 6.0 Monocytes % 6.0 Neutrophils # 29.5 H Lymphocytes # 2.0 Monocytes # 2.0 H Nucleated RBCs/100 WBC 0.2 H Platelet Estimate Normal Large Platelets Present A Polychromasia 1+ A Sodium 140 Potassium 3.9 Chloride 117 H Carbon Dioxide 13 L BUN 12 Creatinine 0.48 L Est GFR ( Amer) > 60 Est GFR (Non-Af Amer) > 60 BUN/Creatinine Ratio 25 Glucose 107 H Calculated Osmolality 290 Calcium 5.5 L* Phosphorus 1.6 L Magnesium 1.8 - ABG Interpretation ABG results: PT/INR, D-dimer PT 16.5 Seconds (9.4-12.1) H 10/16/17 09:06 Consult Discharge Plan - Plan Referrals: ColRik edwards DO [Primary Care Provider] - Prescriptions: Cefdinir [Omnicef] 300 mg PO BID #14 capsule levoFLOXacin [Levaquin] 750 mg PO DAILY #7 tablet
[2017-10-22] MEDS: *HR* Morphine 2 MG/ML SYRINGE IVP PRN ×2 (11:33→14:40)
[2017-10-22] MEDS ORDERED: Calcium Gluconate 2,000 MG in 0.9 % Sodium Chloride 100 ML IVPB ONE (12:43)
--- NOTE | 2017-10-22 13:48 | Event Note ---
Date of Encounter: 10/22/17 Time of Encounter: 13:15 Conducted bedside meeting with patients family. DR. Chang discussed current condition with patients sisters. is currently working but due to arrive shortly. Discussed patients suspected aspiration from recent CVA. Family agrees to transition to comfort care and move patient to palliative care unit. Explained that patient has tachycardia, slightly elevated temp and secretions. Educated on hospice care and goal is to transition home with home hospice. Need to meet with upon his arrival. Medications ordered for comfort.
[2017-10-22] MEDS ORDERED: *HR* Morphine 2 MG/ML SYRINGE IVP PRN (13:51)
[2017-10-22] MEDS ORDERED: Acetaminophen 650 MG RECTAL SUPP RC PRN (13:52)
[2017-10-22] MEDS ORDERED: Piperacillin/Tazobactam 3.375 GM/200 ML BAG IVPB SCH (14:00)
[2017-10-22] MEDS ORDERED: Scopolamine Patch 1.5 MG PATCH.TD72 TD SCH (14:00)
[2017-10-22] MEDS ORDERED: Vancomycin 1,000 MG in D5% in Water 250 ML IVPB SCH (14:00)
[2017-10-22] MEDS: *HR* LORazepam 2 MG/ML VIAL IVP PRN ×2 (14:39→17:41)
[2017-10-22 17:04] VITALS: BP 87/52
--- NOTE | 2017-10-22 19:07 | Death Note ---
Discharge Sum: Summary - Date and Time Date of admission: 10/12/17 17:06 Date of : 10/22/17 Time of : 18:43 - Summary Details: Ms. 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 Patient arrived to [facility] on 10/12/17 with chief complaint of generalized weakness, fatigue, and altered mental status. Of note she was recently discharged from the hospital last week on 10/09/17 after being treated for sepsis secondary to UTI. According to family members, patient states that when she went home after her radiation treatment, she slept for a long period of time and never completed the course of antibiotics that she was sent home with. she came back to the hospital for sepsis secondary to UTI. blood cultures are negative. Patient also had elevated troponins upon admission. she was evaluated by cardiology. they recommended continuing aspirin and low dose beta vidya. Statin therapy not recommended because of her liver mets. Patient was ready for discharge a week ago , however, she was found to have left sided facial drooping and stroke alert was called. Her MRI of brain came back as multiple areas of decreased diffusion bilateral in cerebral and cerebellar area representing acute infarcts. At this point pt and family decided for comfort care, however she wanted to go for PT / OT. She happened to have an episode of aspiration last night, since then she became septic, more respiratory distress, tachycardia, hypoxic and lethargic. I initiated broad spectrum abx , however pt and family talked to our palliative care team Dr. Chang and requested for hospice care. So pt was transferred to [facility] for further in pt hospice care and placed christoph Morphine and Ativan PRN. This evening around 6.43pm pt was pronounced at bed side. I did examined her and talked to the family at bed side and answered all their questions. - Additional Data Confirmation of as documented by pronouncing clinician: no pulse, no respirations, no heart sounds Family: at bedside Attending physician: Jose David Minaya Was code activated?: No Autopsy requested?: No forensic science examiner notified?: No Organ bank notified?: Yes Hospice patient?: Yes Discharge Sum: Diag - PCOD Probable Cause of : Sepsis Discharge Sum: Prov - Provider Primary care physician: Rik Cisneros Consults: 10/12/17 18:10 Consult to Occupational Therapy [CONS] Routine Comment: Evaluate, develop and implement POC Reason for Consult: Pt. is extremely fatigued and weak d/t cancer dx and current urosepsis. Please assess for ambulation strength, stability, and safety for possible home assistive needs for post-discharge planning. Consult to Professor Of Archaeology [CONS] Routine Reason for SW Consult: Please assess patient for possible home needs for post -discharge planning 10/12/17 18:12 Consult to Nutrition [CONS] Routine Comment: Consulting Provider: NUTRITION Reason for Dietary Consult: PO Supplementation Other:: Pt. needs PO supplementation d/t reduced intake r/t cancer tx Consult to Physical Therapy [CONS] Routine Comment: Evaluate, develop and implement POC Reason for Consult: Pt. is extremely fatigued and weak d/t cancer dx and current urosepsis. Please assess for ambulation strength, stability, and safety for possible home assistive needs for post-discharge planning. 10/12/17 18:13 Consult to Oncology Radiation [CONS] Routine Consulting Provider: Oncology [facility] Reason for Consult: Pt. sees Dr. Sands and is due to have radiation this week but is now admitted for urosepsis. Pt. and family are wanting Dr. Sands to be aware of pts. current admission due to scheduled radiation txs this week. Call Completed: No Consult to Oncology [CONS] Routine Consulting Provider: [facility] Reason for Consult: Pt. sees Dr. Soliz and is admitted for urosepsis and severe weakness/fatigue. Family wanted Dr. Soliz to be aware of pts. current admission. Call Completed: No 10/12/17 18:32 Consult to Nutrition [CONS] Routine Comment: Consulting Provider: NUTRITION Reason for Dietary Consult: MST Score 10/16/17 09:29 Consult to Speech Therapy [CONS] Stat Comment: Evaluate, develop and implement POC Reason for Consult: STROKE LEFT SIDE MOUTH DROOP Call Completed: Yes 10/16/17 09:34 Consult to Neurology [CONS] Routine Consulting Provider: Neurology [facility] Reason for Consult: cva Time Notified: 09:00 Call Completed: Yes 10/16/17 18:50 Consult to Palliative Care [CONS] Routine Comment: Consulting Provider: Palliative Care [facility] Reason for Consult: Progressive cancer and now with acute, debiltating stroke. Aid with transition to hospice. D/W patient, but not family this evening Call Completed: No 10/17/17 15:29 Consult to Speech Therapy [CONS] Routine Comment: Evaluate, develop and implement POC Reason for Consult: pt is unable to clear secretions Call Completed: No
[2017-10-22] MEDS ORDERED: predniSONE 5 MG TABLET PO SCH (21:00)
== END 2017-10-22 18:43 | disposition expired | DRG 871 ==
LOC: EMEROO 13:19 → 2NENU 17:06 → SUATTDRO 17:06 → 2NENU 18:11 → 2ANU 10-22 17:48
PROVIDERS: ADMIT Internal Medicine Cardiovascular Disease; ATTEND Hospitalist